=== PATIENT | female | born 1950 | race Caucasian/White ===

== ENCOUNTER 2016-12-15 11:04 | Emergency (ER) | payer MEDICAID ==
[2016-12-15] MEDS ORDERED: Aspirin 81 MG Tab.Chew PO ONE (11:08)
[2016-12-15] MEDS ORDERED: methylPREDNISolone Sodium Succinate 125 MG/2 ML SDV IVPUSH ONE (11:08)
[2016-12-15] MEDS ORDERED: Albuterol/Ipratropium 3.0-0.5 MG/3 ML Neb Soln NEB ONE (11:08)
[2016-12-15] MEDS ORDERED: Sodium Chloride 0.9% 2.5 ML Syringe FLUSH PRN (11:08)
[2016-12-15] MEDS ORDERED: Magnesium Sulfate (4.06 MEQ/ML) 1 GM/2 ML SDV IV ONE (11:08)
[2016-12-15] MEDS ORDERED: Sodium Chloride 0.9% 10 ML Syringe FLUSH PRN (11:08)
[2016-12-15] MEDS ORDERED: Morphine 2 MG/ML Syringe IVPUSH ONE (11:08)
[2016-12-15] MEDS ORDERED: Ondansetron 4 MG/2 ML SDV IVPUSH ONE (11:08)
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
[2016-12-15] MEDS ORDERED: Sodium Chloride 0.9% 1,000 ML IV SCH (11:15)
--- NOTE | 2016-12-15 11:41 | CR ---
EXAMINATION: Portable chest radiograph. HISTORY: Shortness of breath. Comparison: 11/29/2016. FINDINGS: The trachea is midline. The cardiomediastinal silhouette is within normal limits. No pulmonary infil trates, effusions or pneumothorax. There is mild hyperinflation and biapical scarring. Osseous structures appear unremarkable. IMPRESSION: No acute cardiopulmonary process.
[2016-12-15 11:49] LABS: CHLORIDE,CL 97 mmol/L (98-110); SODIUM,NA 128 mmol/L (136-146)
[2016-12-15 17:42] VITALS: BP 127/68
[2016-12-17] MEDS ORDERED: Albuterol/Ipratropium 3.0-0.5 MG/3 ML Neb Soln ONE (21:43)
== END 2016-12-15 13:56 | disposition home or self-care (01) ==
LOC: MW.ED 11:04
DX: J44.1 Chronic obstructive pulmonary disease with (acute) exacerbation (principal); I10 Essential (primary) hypertension; M19.90 Unspecified osteoarthritis, unspecified site; Z87.891 Personal history of nicotine dependence; Z79.2 Long term (current) use of antibiotics; Z79.899 Other long term (current) drug therapy
CPT/HCPCS: 36415; 36600; 71010; 80053; 82803; 83880; 84484; 85025; 85610; 93005; 94664; 96361; 96365; 96375; 99285; A9270; J2270; J2405; J2930; J3475; J7040; J7050; 99284

== ENCOUNTER 2016-12-17 21:38 | Inpatient (IN) | payer MEDICAID, SELFPAY ==
[2016-12-17] MEDS ORDERED: methylPREDNISolone Sodium Succinate 125 MG/2 ML SDV IVPUSH ONE (21:46)
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
[2016-12-17 22:46] LABS: CHLORIDE,CL 94 mmol/L (98-110); SODIUM,NA 124 mmol/L (136-146)
[2016-12-17] MEDS: Sodium Chloride 0.9% 1,000 ML IV SCH (22:48)
[2016-12-18] MEDS: Albuterol/Ipratropium 3.0-0.5 MG/3 ML Neb Soln NEB SCH ×5 (00:14→23:49)
[2016-12-18] MEDS: Sodium Chloride 0.9% 1,000 ML IV SCH ×3 (00:20→17:00)
[2016-12-18 02:28] LABS: CHLORIDE,CL 96 mmol/L (98-110); SODIUM,NA 125 mmol/L (136-146)
[2016-12-18] MEDS: methylPREDNISolone Sodium Succinate 125 MG/2 ML SDV IVPUSH SCH ×4 (05:35→22:55)
[2016-12-18] MEDS ORDERED: Albuterol/Ipratropium 3.0-0.5 MG/3 ML Neb Soln NEB STA (05:37)
[2016-12-18 07:12] LABS: CHLORIDE,CL 98 mmol/L (98-110); SODIUM,NA 128 mmol/L (136-146)
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
[2016-12-18 10:39] LABS: CHLORIDE,CL 98 mmol/L (98-110); SODIUM,NA 127 mmol/L (136-146)
[2016-12-18] MEDS: Tiotropium Inhaler 18 MCG Inhalation Powder Cap Kit of 5 INH SCH (11:06)
[2016-12-18 14:41] LABS: CHLORIDE,CL 97 mmol/L (98-110); SODIUM,NA 128 mmol/L (136-146)
[2016-12-18] MEDS: Enoxaparin 40 MG/0.4 ML Syringe SUBCUT SCH (16:11)
[2016-12-18] MEDS: NIFEdipine 30 MG Tab.ER PO SCH (17:01)
--- NOTE | 2016-12-18 17:34 | CR ---
EXAM DATE: 12/17/16 PATIENT'S AGE: 66 Patient: BENY HOANG Facility: [place], [place] Site . Site : 1950 Study: XRay Chest [id number] 10:08:36 PM Ordering Physician: Doctor Garzon Final Report: INDICATION: SOB TECHNIQUE: Chest 1 view COMPARISON: December 15, 2016. FINDINGS: Cardiovascular and mediastinum: Heart size and vasculature are normal in caliber and appearance. Mediastinum is within normal limits. Lungs and pleural space: Hyperinflation and scarring throughout both lungs. Biapical pleural thickening. No sign of pleural effusion. No pneumothorax. Bones and soft tissues: Stable. IMPRESSION: No acute cardiopulmonary disease. Dictated by Mike Michael MD @ 12/17/2016 10:13:44 PM Dictated by: Mike Michael MD @ 12/17/2016 22:14:07 (Electronic Signature) Report Signed by Proxy. GRADY
[2016-12-18 18:19] LABS: CHLORIDE,CL 97 mmol/L (98-110); SODIUM,NA 129 mmol/L (136-146)
[2016-12-18] MEDS: Fluticasone/Salmeterol 500-50 MCG Inhalation Powder 14/Diskus INH SCH (20:36)
[2016-12-18] MEDS: Montelukast 10 MG Tab PO SCH (20:49)
[2016-12-18] MEDS: Docusate Sodium 100 MG Cap PO PRN (22:08)
[2016-12-18 22:29] LABS: CHLORIDE,CL 97 mmol/L (98-110); SODIUM,NA 128 mmol/L (136-146)
[2016-12-18] MEDS ORDERED: Potassium Chloride 20 MEQ Tab.ER PO ONE (23:29)
[2016-12-19] MEDS: Sodium Chloride 0.9% 1,000 ML IV SCH ×3 (00:42→15:53)
[2016-12-19 01:57] LABS: CHLORIDE,CL 99 mmol/L (98-110); SODIUM,NA 132 mmol/L (136-146)
[2016-12-19] MEDS: methylPREDNISolone Sodium Succinate 125 MG/2 ML SDV IVPUSH SCH ×3 (05:01→20:40)
[2016-12-19 06:50] LABS: CHLORIDE,CL 99 mmol/L (98-110); SODIUM,NA 131 mmol/L (136-146)
[2016-12-19] MEDS: Albuterol/Ipratropium 3.0-0.5 MG/3 ML Neb Soln NEB SCH ×4 (07:32→23:11)
[2016-12-19] MEDS: NIFEdipine 30 MG Tab.ER PO SCH (08:04)
[2016-12-19] MEDS: Docusate Sodium 100 MG Cap PO PRN (08:04)
[2016-12-19] MEDS: Azithromycin 250 MG Tab PO SCH (08:04)
[2016-12-19] MEDS: Tiotropium Inhaler 18 MCG Inhalation Powder Cap Kit of 5 INH SCH (08:05)
[2016-12-19] MEDS: Fluticasone/Salmeterol 500-50 MCG Inhalation Powder 14/Diskus INH SCH ×2 (08:05→20:40)
[2016-12-19] MEDS ORDERED: Potassium Chloride 20 MEQ Tab.ER PO ONE (08:05)
--- NOTE | 2016-12-19 08:22 | PCM.PN ---
- General Info Date of Service: 12/19/16 Admission Dx/Problem (Free Text): COPD exacerbation Subjective Update: Feeling tired today, lightheadedness and dizziness improved, but still present intermittently. No chest pain or palpitations. Dyspnea improving some, on baseline 2 L NC. Functional Status: Reports: pain controlled, tolerating diet, ambulating, urinating - Review of Systems General: Reports: Fatigue. Denies: Fever HEENT: Reports: no symptoms. Denies: headaches, sore throat, visual changes Pulmonary: Reports: shortness of breath (almost at baseline, improving), cough, wheezing Cardiovascular: Reports: Dyspnea on Exertion, Lightheadedness. Denies: Chest Pain, Palpitations Gastrointestinal: Reports: No symptoms. Denies: Abdominal pain, Nausea, Vomiting Genitourinary: Reports: no symptoms. Denies: dysuria, frequency, burning Musculoskeletal: Reports: no symptoms Neurological: Reports: No Symptoms Psychiatric: Reports: no symptoms - Patient Data Vitals - most recent: Last Vital Signs Temp 98.2 F 12/19/16 07:55 Pulse 88 12/19/16 07:55 Resp 22 H 12/19/16 07:55 BP 129/66 12/19/16 08:04 Pulse Ox 96 12/19/16 07:55 Weight - most recent: 50 kg I&O - last 24 hours: Intake & Output 12/18/16 12/19/16 12/19/16 22:59 06:59 14:59 Intake Total 3424 1671 Output Total 2470 2200 Balance 954 -529 Lab Results last 24 hrs: Laboratory Results - last 24 hr 12/18/16 12/18/16 12/18/16 Range/Units 09:57 14:00 17:55 WBC (4.0-11.0) K/uL RBC (4.30-5.90) M/uL Hgb (12.0-16.0) g/dL Hct (36.0-46.0) % MCV (80.0-98.0) fL MCH (27.0-32.0) pg MCHC (31.0-37.0) g/dL RDW Std Deviation (28.0-62.0) fl RDW Coeff of Peter (11.0-15.0) % Plt Count (150-400) K/uL MPV (7.40-12.00) fL Neut % (Auto) (48.0-80.0) % Lymph % (Auto) (16.0-40.0) % [place] % (Auto) (0.0-15.0) % Eos % (Auto) (0.0-7.0) % Baso % (Auto) (0.0-1.5) % Neut # (Auto) (1.4-5.7) K/uL Lymph # (Auto) (0.6-2.4) K/uL [place] # (Auto) (0.0-0.8) K/uL Eos # (Auto) (0.0-0.7) K/uL Baso # (Auto) (0.0-0.1) K/uL Nucleated RBC % /100WBC Nucleated RBCs # K/uL Sodium 127 L 128 L 129 L (136-146) mmol/L Potassium 3.7 3.8 3.8 (3.5-5.1) mmol/L Chloride 98 97 L 97 L (98-110) mmol/L Carbon Dioxide 18 L 20 L 21 (21-31) mmol/L BUN 12 12 13 (6.0-23.0) mg/dL Creatinine 0.7 0.7 0.6 (0.6-1.5) mg/dL Est Cr Clr Drug Dosing 64.09 64.09 74.77 mL/min Estimated GFR (MDRD) > 60.0 > 60.0 > 60.0 ml/min Glucose 228 H 200 H 183 H (60-110) mg/dL Calcium 8.1 L 8.1 L 8.2 L (8.8-10.8) mg/dL 12/18/16 12/19/16 12/19/16 Range/Units 21:53 01:33 06:22 WBC (4.0-11.0) K/uL RBC (4.30-5.90) M/uL Hgb (12.0-16.0) g/dL Hct (36.0-46.0) % MCV (80.0-98.0) fL MCH (27.0-32.0) pg MCHC (31.0-37.0) g/dL RDW Std Deviation (28.0-62.0) fl RDW Coeff of Peter (11.0-15.0) % Plt Count (150-400) K/uL MPV (7.40-12.00) fL Neut % (Auto) (48.0-80.0) % Lymph % (Auto) (16.0-40.0) % [place] % (Auto) (0.0-15.0) % Eos % (Auto) (0.0-7.0) % Baso % (Auto) (0.0-1.5) % Neut # (Auto) (1.4-5.7) K/uL Lymph # (Auto) (0.6-2.4) K/uL [place] # (Auto) (0.0-0.8) K/uL Eos # (Auto) (0.0-0.7) K/uL Baso # (Auto) (0.0-0.1) K/uL Nucleated RBC % /100WBC Nucleated RBCs # K/uL Sodium 128 L 132 L 131 L (136-146) mmol/L Potassium 3.3 L 3.6 3.2 L (3.5-5.1) mmol/L Chloride 97 L 99 99 (98-110) mmol/L Carbon Dioxide 19 L 21 19 L (21-31) mmol/L BUN 14 11 8 (6.0-23.0) mg/dL Creatinine 0.6 0.6 0.6 (0.6-1.5) mg/dL Est Cr Clr Drug Dosing 74.77 74.77 74.77 mL/min Estimated GFR (MDRD) > 60.0 > 60.0 > 60.0 ml/min Glucose 143 H 136 H 205 H (60-110) mg/dL Calcium 8.4 L 8.5 L 8.2 L (8.8-10.8) mg/dL 12/19/16 Range/Units 06:22 WBC 13.55 H (4.0-11.0) K/uL RBC 3.99 L (4.30-5.90) M/uL Hgb 12.2 (12.0-16.0) g/dL Hct 35.1 L (36.0-46.0) % MCV 88.0 (80.0-98.0) fL MCH 30.6 (27.0-32.0) pg MCHC 34.8 (31.0-37.0) g/dL RDW Std Deviation 42.3 (28.0-62.0) fl RDW Coeff of Peter 13 (11.0-15.0) % Plt Count 341 (150-400) K/uL MPV 8.40 (7.40-12.00) fL Neut % (Auto) 94.0 H (48.0-80.0) % Lymph % (Auto) 2.4 L (16.0-40.0) % [place] % (Auto) 3.5 (0.0-15.0) % Eos % (Auto) 0.0 (0.0-7.0) % Baso % (Auto) 0.1 (0.0-1.5) % Neut # (Auto) 12.7 H (1.4-5.7) K/uL Lymph # (Auto) 0.3 L (0.6-2.4) K/uL [place] # (Auto) 0.5 (0.0-0.8) K/uL Eos # (Auto) 0.0 (0.0-0.7) K/uL Baso # (Auto) 0.0 (0.0-0.1) K/uL Nucleated RBC % 0.0 /100WBC Nucleated RBCs # 0 K/uL Sodium (136-146) mmol/L Potassium (3.5-5.1) mmol/L Chloride (98-110) mmol/L Carbon Dioxide (21-31) mmol/L BUN (6.0-23.0) mg/dL Creatinine (0.6-1.5) mg/dL Est Cr Clr Drug Dosing mL/min Estimated GFR (MDRD) ml/min Glucose (60-110) mg/dL Calcium (8.8-10.8) mg/dL Med Orders - Current: Current Medications Albuterol/Ipratropium (Duoneb 3.0-0.5 Mg/3 Ml) 3 ml NEB Q6HRRT [place] Last Admin: 12/19/16 07:32 Dose: 3 ml Azithromycin (Zithromax) 500 mg PO DAILY [place] Last Admin: 12/19/16 08:04 Dose: 500 mg Docusate Sodium (Colace) 100 mg PO BID PRN PRN Reason: Constipation Last Admin: 12/19/16 08:04 Dose: 100 mg Enoxaparin Sodium (Lovenox) 40 mg SUBCUT Q24H [facility] Last Admin: 12/18/16 16:11 Dose: 40 mg Sodium Chloride (Normal Saline) 1,000 mls @ 125 mls/hr IV STAT [facility] Last Admin: 12/19/16 00:42 Dose: 125 mls/hr Sodium Chloride (Normal Saline) 1,000 mls @ 125 mls/hr IV ASDIRECTED [facility] Last Admin: 12/19/16 08:12 Dose: 125 mls/hr Insulin Aspart (Novolog) 0 unit SUBCUT TIDAC [facility] PRN Reason: Protocol Methylprednisolone Sodium Succinate (Solu-Medrol) 125 mg IVPUSH Q6H [facility] Last Admin: 12/19/16 05:01 Dose: 125 mg Montelukast Sodium (Singulair) 10 mg PO BEDTIME [facility] Last Admin: 12/18/16 20:49 Dose: 10 mg Nifedipine (Procardia Xl) 30 mg PO DAILY [facility] Last Admin: 12/19/16 08:04 Dose: 30 mg Fluticasone/Salmeterol (Advair Diskus 500-50) 1 puff INH BID [facility] Last Admin: 12/19/16 08:05 Dose: 1 puff Tiotropium [place] (Spiriva Handihaler) 18 mcg INH DAILY [facility] Last Admin: 12/19/16 08:05 Dose: 1 ampule Discontinued Medications Albuterol/Ipratropium (Duoneb 3.0-0.5 Mg/3 Ml) 3 ml NEB NOW STA Stop: 12/18/16 05:38 Last Admin: 12/17/16 21:55 Dose: 3 ml Methylprednisolone Sodium Succinate (Solu-Medrol) 125 mg IVPUSH ONETIME ONE Stop: 12/17/16 21:47 Last Admin: 12/17/16 22:49 Dose: 125 mg Nifedipine (Procardia Xl) 30 mg PO DAILY [facility] Potassium Chloride (Klor-Con M20) 40 meq PO ONETIME ONE Stop: 12/18/16 23:30 Last Admin: 12/18/16 23:49 Dose: 40 meq Potassium Chloride (Klor-Con M20) 40 meq PO ONETIME ONE Stop: 12/19/16 08:06 - Exam Quality Assessment: supplemental oxygen, DVT prophylaxis General: alert, oriented, cooperative, no acute distress Neck: supple, +2 carotid pulse wo bruit Lungs: Clear to auscultation, Normal respiratory effort Cardiovascular: Regular Rate, Regular Rhythm, No Murmurs Abdomen: bowel sounds present, soft, no tenderness, no distension Extremities: no edema, normal pulses Neurological: no new focal deficit Psy/Mental Status: alert, normal affect, normal mood - Problem List & Annotations (1) COPD (chronic obstructive pulmonary disease) SNOMED Code(s): 23503451 Code(s): J44.9 - CHRONIC OBSTRUCTIVE PULMONARY DISEASE, UNSPECIFIED Status : Chronic Current Visit: Yes Qualifiers: COPD type: chronic bronchitis Chronic bronchitis type: unspecified Qualified Code(s): J42 - Unspecified chronic bronchitis (2) Hyponatremia SNOMED Code(s): 43616319 Code(s): E87.1 - HYPO-OSMOLALITY AND HYPONATREMIA Status: Acute Current Visit: Yes (3) Hypertension SNOMED Code(s): 45499302 Code(s): I10 - ESSENTIAL (PRIMARY) HYPERTENSION Status: Chronic Priority : Medium Current Visit: No Qualifiers: Hypertension type: essential hypertension Qualified Code(s): I10 - Essential (primary) hypertension (4) Oxygen dependent SNOMED Code(s): 015605842225 Code(s): Z99.81 - DEPENDENCE ON SUPPLEMENTAL OXYGEN Status: Chronic Current Visit: No - Problem List Review Problem List Initiated/Reviewed/Updated: Yes - My Orders Last 24 Hours: My Active Orders 12/18/16 11:00 Tiotropium [Spiriva HandiHaler] 18 mcg INH DAILY 12/18/16 13:08 Resuscitation Status Routine 12/18/16 15:00 Enoxaparin [Lovenox] 40 mg SUBCUT Q24H 12/18/16 16:26 NIFEdipine [Procardia XL] 30 mg PO DAILY 12/18/16 21:00 Fluticasone/Salmeterol [Advair Diskus 500-50] 1 puff INH BID Montelukast [Singulair] 10 mg PO BEDTIME 12/19/16 08:06 Blood Glucose Check, Bedside [RC] TIDMEALS 12/19/16 08:07 Insulin Aspart [NovoLOG] See Protocol SUBCUT TIDAC 12/19/16 09:00 Azithromycin [Zithromax] 500 mg PO DAILY 12/19/16 10:00 BMP [BASIC METABOLIC PANEL,BMP] [CHEM] Q4H 12/20/16 06:00 CBC WITH AUTO DIFF [HEME] DAILY 12/21/16 06:00 CBC WITH AUTO DIFF [HEME] DAILY - Plan Plan:: This 66 year female admitted with COPD exacerbation and hyponatremia 1. COPD excerbation: Improving, will decrease Solumderol 125 IV q6h to Q8hr. Continue with Duonebs, Oxygen and home inhalers, Advair and Spiriva. 2. Hyponatremia: Improving, 131 this morning. Lightheadedness and dizziness improving. Discontinued SSRI follow up with PCP to discuss further options for anti-depressants. Continue NS 125 3. HTN: Stable. Continue Nifedipine 4. Hyperglycemia: Likely related to steroid adminstration, will place on BS checks and SSI Novolog TID with meals. VTE prophylaxis: Lovenox Dispo: 2-3 days
[2016-12-19] MEDS: Insulin Aspart 100 Units/ML 3 ML Pen SUBCUT SCH ×3 (08:26→17:30)
[2016-12-19] MEDS ORDERED: NIFEdipine 30 MG Tab.ER PO SCH (09:00)
[2016-12-19 10:44] LABS: CHLORIDE,CL 101 mmol/L (98-110); SODIUM,NA 132 mmol/L (136-146)
[2016-12-19] MEDS: Enoxaparin 40 MG/0.4 ML Syringe SUBCUT SCH (14:44)
[2016-12-19] MEDS: Montelukast 10 MG Tab PO SCH (20:39)
[2016-12-20] MEDS: Sodium Chloride 0.9% 1,000 ML IV SCH (02:09)
[2016-12-20] MEDS: Albuterol/Ipratropium 3.0-0.5 MG/3 ML Neb Soln NEB SCH ×2 (05:09→13:31)
[2016-12-20] MEDS: methylPREDNISolone Sodium Succinate 125 MG/2 ML SDV IVPUSH SCH ×2 (05:09→13:49)
[2016-12-20 05:28] LABS: CHLORIDE,CL 99 mmol/L (98-110); SODIUM,NA 133 mmol/L (136-146)
[2016-12-20] MEDS: Insulin Aspart 100 Units/ML 3 ML Pen SUBCUT SCH ×2 (06:33→11:50)
[2016-12-20] MEDS: Azithromycin 250 MG Tab PO SCH (09:25)
[2016-12-20] MEDS: NIFEdipine 30 MG Tab.ER PO SCH (09:25)
[2016-12-20] MEDS: Tiotropium Inhaler 18 MCG Inhalation Powder Cap Kit of 5 INH SCH (09:25)
--- NOTE | 2016-12-20 09:25 | PCM.DCSUM1 ---
Discharge Summary - Hospital Course Brief History: This 66 year old female with pmh of steroid dependent COPD oxygen dependent and HTN presented to the ED with worsening SOB. She was seen in the ED the night prior and decline admission. She then went home and continued to have worsening dypsnea lightheadedness and dizziness. She reports not eating or drinking as well as usual. No fevers. Has dry cough, but unable to produce sputum, remains on 2 L NC, which is baseline. No headaches, does state some blurred vision intermittently. No chest pain or palpitations. No abdominal pain, but does complain of some constipation. She reports recently seeing Pulmonology LENDING MANAGER, Olga Glover, where Spiriva was added as well as steroid taper and Azithromycin. On December 13 she saw her PCP, Dr. León who started Sertraline at that time for depression. In the ED WBC 11,630, NA 124, UA negative and CXR revealed no infiltrate, does show hyperinflation. She was admitted for COPD exacerbation and hyponatremia. - Discharge Data Discharge Date: 12/20/16 Discharge Disposition: Home, Self-Care 01 Condition: Good - Discharge Diagnosis/Problem(s) (1) COPD (chronic obstructive pulmonary disease) SNOMED Code(s): 85824602 ICD Code: J44.9 - CHRONIC OBSTRUCTIVE PULMONARY DISEASE, UNSPECIFIED Status : Chronic Current Visit: Yes Qualifiers: COPD type: chronic bronchitis Chronic bronchitis type: unspecified Qualified Code(s): J42 - Unspecified chronic bronchitis (2) Hyponatremia SNOMED Code(s): 08606154 ICD Code: E87.1 - HYPO-OSMOLALITY AND HYPONATREMIA Status: Acute Current Visit: Yes (3) Hypertension SNOMED Code(s): 04578607 ICD Code: I10 - ESSENTIAL (PRIMARY) HYPERTENSION Status: Chronic Priority : Medium Current Visit: No Qualifiers: Hypertension type: essential hypertension Qualified Code(s): I10 - Essential (primary) hypertension (4) Oxygen dependent SNOMED Code(s): 230850012723 ICD Code: Z99.81 - DEPENDENCE ON SUPPLEMENTAL OXYGEN Status: Chronic Current Visit: No - Patient Instructions Diet: Regular Diet as Tolerated Activity: As Tolerated Showering/Bathing: October Shower Notify Provider of: Fever, Increased Pain, Swelling and Redness, Drainage, Nausea and/or Vomiting - Discharge Plan Prescriptions/Med Rec: Prednisone [IMW: Prednisone] 10 - 40 mg PO DAILY #50 tab Home Medications: Home Meds Albuterol [Proventil Neb Soln] 2.5 mg NEB QID PRN 03/13/15 [History] Albuterol Sulfate [Proair Hfa] 2 inh IH QID PRN 03/15/15 [History] LORazepam 0.5 mg PO BID PRN 03/15/15 [History] NIFEdipine [Nifedipine ER] 30 mg PO DAILY 03/15/15 [History] Fluticasone/Salmeterol [Advair Diskus 500-50] 1 puff INH BID 12/18/16 [History] Montelukast Sodium 10 mg PO BEDTIME 12/18/16 [History] Tiotropium [Spiriva HandiHaler] 18 mcg IH DAILY 12/18/16 [History] Azithromycin 500 mg PO DAILY #0 12/20/16 [Rx] Prednisone [IMW: Prednisone] 10 - 40 mg PO DAILY #50 tab 12/20/16 [Rx] predniSONE 10 mg PO DAILY #0 12/20/16 [Rx] Patient Handouts: Chronic Obstructive Pulmonary Disease Exacerbation, Easy-to- Read, Hyponatremia, [id number], Prednisone tablets Referrals: Pollo León MD [Physician] - 12/27/16 8:30 am - Discharge Summary/Plan Comment DC Time >30 min.: No Discharge Summary/Plan Comment: Discharge Diagnoses: COPD exacerbation Hyponatremia secondary to SSRI initiation BENJAMIN Meza was admitted and treated with Solumedrol and nebulizers. Azithromycin was continued, which had been started a few days prior per Pulmonology in [place]. She slowly improved and is back to baseline oxygen needs, 2 L NC continuously. She is still dyspneic but is requesting discharge home today. I will continue azithromycin as previously ordered. Prednisone taper on discharge. Hyponatremia was noted on admission, she was recently started on Zoloft as outpatient. She had lightheadedness and dizziness on admission. This was held and she was treated with IV fluids. Na 133 today. She was instructed to discontinue Zoloft and visit with Dr. León regarding further treatment of depression at follow up visit. She is to return to ED or clinic if concerns should arise. - General Info Date of Service: 12/20/16 Admission Dx/Problem (Free Text: COPD exacerbation Subjective Update: Asking to go home today. She is feeling better, still SOB but reports it is much improved from admission. Denies any chest pain or palpitations and lightheadedness and dizziness has improved as well. Functional Status: Reports: pain controlled, tolerating diet, ambulating, urinating - Review of Systems General: Reports: No Symptoms HEENT: Reports: no symptoms. Denies: headaches Pulmonary: Reports: shortness of breath (improving), cough. Denies: hemoptysis Cardiovascular: Reports: No Symptoms. Denies: Chest Pain, Dyspnea on Exertion, Edema, Lightheadedness Gastrointestinal: Reports: No symptoms. Denies: Abdominal pain, Nausea, Vomiting Genitourinary: Reports: no symptoms Musculoskeletal: Reports: no symptoms Skin: Reports: no symptoms Neurological: Reports: No Symptoms Psychiatric: Reports: no symptoms - Patient Data Vitals - Most Recent: Last Vital Signs Temp 96.8 F 12/20/16 08:00 Pulse 83 12/20/16 08:00 Resp 20 12/20/16 08:00 BP 156/93 H 12/20/16 09:25 Pulse Ox 95 12/20/16 08:00 Weight - Most Recent: 50 kg I&O - Last 24 hours: Intake & Output 12/19/16 12/20/16 12/20/16 22:59 06:59 14:59 Intake Total 2529 1400 Output Total 1700 2550 Balance 829 -1150 Lab Results - Last 24 hrs: Laboratory Results - last 24 hr 12/19/16 12/19/16 12/19/16 Range/Units 10:16 11:48 16:52 WBC (4.0-11.0) K/uL RBC (4.30-5.90) M/uL Hgb (12.0-16.0) g/dL Hct (36.0-46.0) % MCV (80.0-98.0) fL MCH (27.0-32.0) pg MCHC (31.0-37.0) g/dL RDW Std Deviation (28.0-62.0) fl RDW Coeff of Peter (11.0-15.0) % Plt Count (150-400) K/uL MPV (7.40-12.00) fL Neut % (Auto) (48.0-80.0) % Lymph % (Auto) (16.0-40.0) % [place] % (Auto) (0.0-15.0) % Eos % (Auto) (0.0-7.0) % Baso % (Auto) (0.0-1.5) % Neut # (Auto) (1.4-5.7) K/uL Lymph # (Auto) (0.6-2.4) K/uL [place] # (Auto) (0.0-0.8) K/uL Eos # (Auto) (0.0-0.7) K/uL Baso # (Auto) (0.0-0.1) K/uL Nucleated RBC % /100WBC Nucleated RBCs # K/uL Sodium 132 L (136-146) mmol/L Potassium 3.9 (3.5-5.1) mmol/L Chloride 101 (98-110) mmol/L Carbon Dioxide 19 L (21-31) mmol/L BUN 9 (6.0-23.0) mg/dL Creatinine 0.7 (0.6-1.5) mg/dL Est Cr Clr Drug Dosing 64.09 mL/min Estimated GFR (MDRD) > 60.0 ml/min Glucose 203 H (60-110) mg/dL POC Glucose 111 H 107 (60-110) mg/dL Calcium 8.4 L (8.8-10.8) mg/dL 12/20/16 12/20/16 12/20/16 Range/Units 04:57 04:57 06:18 WBC 10.32 (4.0-11.0) K/uL RBC 3.95 L (4.30-5.90) M/uL Hgb 12.0 (12.0-16.0) g/dL Hct 35.1 L (36.0-46.0) % MCV 88.9 (80.0-98.0) fL MCH 30.4 (27.0-32.0) pg MCHC 34.2 (31.0-37.0) g/dL RDW Std Deviation 43.9 (28.0-62.0) fl RDW Coeff of Peter 13 (11.0-15.0) % Plt Count 349 (150-400) K/uL MPV 8.40 (7.40-12.00) fL Neut % (Auto) 92.4 H (48.0-80.0) % Lymph % (Auto) 6.1 L (16.0-40.0) % [place] % (Auto) 1.5 (0.0-15.0) % Eos % (Auto) 0.0 (0.0-7.0) % Baso % (Auto) 0.0 (0.0-1.5) % Neut # (Auto) 9.5 H (1.4-5.7) K/uL Lymph # (Auto) 0.6 (0.6-2.4) K/uL [place] # (Auto) 0.2 (0.0-0.8) K/uL Eos # (Auto) 0.0 (0.0-0.7) K/uL Baso # (Auto) 0.0 (0.0-0.1) K/uL Nucleated RBC % 0.0 /100WBC Nucleated RBCs # 0 K/uL Sodium 133 L (136-146) mmol/L Potassium 3.5 (3.5-5.1) mmol/L Chloride 99 (98-110) mmol/L Carbon Dioxide 23 (21-31) mmol/L BUN 8 (6.0-23.0) mg/dL Creatinine 0.6 (0.6-1.5) mg/dL Est Cr Clr Drug Dosing 74.77 mL/min Estimated GFR (MDRD) > 60.0 ml/min Glucose 147 H (60-110) mg/dL POC Glucose 135 H (60-110) mg/dL Calcium 8.5 L (8.8-10.8) mg/dL Med Orders - Current: Current Medications Albuterol/Ipratropium (Duoneb 3.0-0.5 Mg/3 Ml) 3 ml NEB Q6HRRT [facility] Last Admin: 12/20/16 05:09 Dose: 3 ml Azithromycin (Zithromax) 500 mg PO DAILY [facility] Last Admin: 12/20/16 09:25 Dose: 500 mg Docusate Sodium (Colace) 100 mg PO BID PRN PRN Reason: Constipation Last Admin: 12/19/16 08:04 Dose: 100 mg Enoxaparin Sodium (Lovenox) 40 mg SUBCUT Q24H [facility] Last Admin: 12/19/16 14:44 Dose: 40 mg Sodium Chloride (Normal Saline) 1,000 mls @ 125 mls/hr IV ASDIRECTED [facility] Last Admin: 12/20/16 02:09 Dose: 125 mls/hr Insulin Aspart (Novolog) 0 unit SUBCUT TIDAC [place] PRN Reason: Protocol Last Admin: 12/20/16 06:33 Dose: Not Given Methylprednisolone Sodium Succinate (Solu-Medrol) 125 mg IVPUSH Q8H [facility] Last Admin: 12/20/16 05:09 Dose: 125 mg Montelukast Sodium (Singulair) 10 mg PO BEDTIME [facility] Last Admin: 12/19/16 20:39 Dose: 10 mg Nifedipine (Procardia Xl) 30 mg PO DAILY [facility] Last Admin: 12/20/16 09:25 Dose: 30 mg Fluticasone/Salmeterol (Advair Diskus 500-50) 1 puff INH BID [facility] Last Admin: 12/19/16 20:40 Dose: 1 puff Tiotropium [place] (Spiriva Handihaler) 18 mcg INH DAILY [facility] Last Admin: 12/19/16 08:05 Dose: 1 ampule Discontinued Medications Albuterol/Ipratropium (Duoneb 3.0-0.5 Mg/3 Ml) 3 ml NEB NOW STA Stop: 12/18/16 05:38 Last Admin: 12/17/16 21:55 Dose: 3 ml Sodium Chloride (Normal Saline) 1,000 mls @ 125 mls/hr IV STAT [facility] Last Admin: 12/19/16 00:42 Dose: 125 mls/hr Methylprednisolone Sodium Succinate (Solu-Medrol) 125 mg IVPUSH ONETIME ONE Stop: 12/17/16 21:47 Last Admin: 12/17/16 22:49 Dose: 125 mg Methylprednisolone Sodium Succinate (Solu-Medrol) 125 mg IVPUSH Q6H [facility] Last Admin: 12/19/16 05:01 Dose: 125 mg Nifedipine (Procardia Xl) 30 mg PO DAILY [facility] Potassium Chloride (Klor-Con M20) 40 meq PO ONETIME ONE Stop: 12/18/16 23:30 Last Admin: 12/18/16 23:49 Dose: 40 meq Potassium Chloride (Klor-Con M20) 40 meq PO ONETIME ONE Stop: 12/19/16 08:06 Last Admin: 12/19/16 08:23 Dose: 40 meq - Exam General: Reports: alert, oriented, cooperative Lungs: Reports: Decreased breath sounds, Wheezing. Denies: Normal respiratory effort (dyspneic with speech) Cardiovascular: Reports: Regular Rate, Regular Rhythm Abdomen: Reports: bowel sounds present, soft, no tenderness, no distension Extremities: Reports: no edema, normal pulses Neurological: Reports: no new focal deficit Psy/Mental Status: Reports: alert, normal affect, normal mood *Q Meaningful Use (DIS) - VTE *Q VTE Criteria *Q: - Stroke *Q Stroke Criteria *Q: - AMI *Q AMI Criteria *Q:
[2016-12-20] MEDS: Fluticasone/Salmeterol 500-50 MCG Inhalation Powder 14/Diskus INH SCH (09:26)
[2016-12-20 11:35] VITALS: BP 121/73
== END 2016-12-20 16:00 | disposition home or self-care (01) | DRG 191 ==
LOC: MW.ED 21:38 → MW.MS 23:22
PROVIDERS: ADMIT Internal Medicine; ATTEND Internal Medicine
DX: J44.9 Chronic obstructive pulmonary disease, unspecified (principal); J44.0 Chronic obstructive pulmonary disease with (acute) lower respiratory infection; E87.1 Hypo-osmolality and hyponatremia; J20.9 Acute bronchitis, unspecified; J44.1 Chronic obstructive pulmonary disease with (acute) exacerbation; I10 Essential (primary) hypertension; F32.9 Major depressive disorder, single episode, unspecified; Z79.52 Long term (current) use of systemic steroids; Z99.81 Dependence on supplemental oxygen; Z79.899 Other long term (current) drug therapy; Z87.891 Personal history of nicotine dependence; R73.9 Hyperglycemia, unspecified
CPT/HCPCS: 36415; 71010; 80053; 84484; 85025; 96361; 96374; 99285; J2930; J7040; 80048; 81001; 82962; 93005; 94640; 94664; 99283; A9270-GY; J1650; J1815-GY

== ENCOUNTER 2018-09-17 16:13 | Emergency (ER) | payer MEDICARE, MEDICAID ==
[2018-09-17] MEDS ORDERED: methylPREDNISolone Sodium Succinate 125 MG/2 ML SDV IVPUSH ONE (16:16)
[2018-09-17] MEDS ORDERED: Sodium Chloride 0.9% 2.5 ML Syringe FLUSH PRN (16:16)
[2018-09-17] MEDS ORDERED: Albuterol/Ipratropium 3.0-0.5 MG/3 ML Neb Soln NEB ONE ×2 (16:16→17:28)
[2018-09-17] MEDS ORDERED: Sodium Chloride 0.9% 10 ML Syringe FLUSH PRN (16:16)
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
[2018-09-17] MEDS ORDERED: methylPREDNISolone Sodium Succinate 125 MG/2 ML SDV ONE (16:32)
[2018-09-17] MEDS ORDERED: LORazepam 2 MG/ML SDV IVPUSH ONE (16:33)
[2018-09-17 17:01] LABS: CHLORIDE,CL 96 mmol/L (98-107); SODIUM,NA 133 mmol/L (136-145)
--- NOTE | 2018-09-17 17:44 | CR ---
INDICATION: Shortness of breath TECHNIQUE: Chest 1 views COMPARISON: 06/19/2018 FINDINGS: Cardiovascular and mediastinum: Heart size and vasculature are normal in caliber and appearance. Lungs and pleural spaces: Lungs are hyperinflated but otherwise clear. No sign of infiltrate or mass. No sign of pleural effusion. No pneumothorax. Bones and soft tissues: No significant findings. IMPRESSION: Unremarkable chest. No finding to explain shortness of breath. Dictated by Rosalio Lujan MD @ Sep 17 2018 5:42PM Signed by Dr. Rosalio Lujan @ Sep 17 2018 5:43PM
[2018-09-17 18:01] VITALS: BP 156/88
== END 2018-09-17 18:10 | disposition home or self-care (01) ==
LOC: MW.ED 16:13
DX: J44.1 Chronic obstructive pulmonary disease with (acute) exacerbation (principal); I10 Essential (primary) hypertension; F41.9 Anxiety disorder, unspecified; F32.9 Major depressive disorder, single episode, unspecified; Z79.899 Other long term (current) drug therapy
CPT/HCPCS: 36415; 71045; 80053; 84484; 85025; 93005; 94640; 96374; 96375; 99285; J2060; J2930; J7620-GY

== ENCOUNTER 2018-10-04 16:15 | Emergency (ER) | payer MEDICARE, MEDICAID ==
[2018-10-04] MEDS ORDERED: methylPREDNISolone Sodium Succinate 125 MG/2 ML SDV IVPUSH ONE (16:19)
[2018-10-04] MEDS ORDERED: Albuterol/Ipratropium 3.0-0.5 MG/3 ML Neb Soln NEB ONE (16:19)
[2018-10-04] MEDS ORDERED: Sodium Chloride 0.9% 1,000 ML IV ONE (16:20)
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
[2018-10-04 16:25] VITALS: BP 185/104
--- NOTE | 2018-10-04 17:27 | CR ---
INDICATION: Shortness of breath. History of COPD and pneumonia. COMPARISON: 09/17/2018 chest radiograph. FINDINGS/IMPRESSION: Unchanged pulmonary hyperexpansion suggesting chronic obstructive pulmonary disease. No acute pulmonary infiltrates or other acute intrathoracic findings. No pleural effusions. Normal heart size. No acute osseous abnormalities. Dictated by Mina Miller MD @ 10/04/2018 5:26:27 PM Dictated by: Mina Miller MD @ 10/04/2018 17:26:48 (Electronically Signed)
[2018-10-04 17:53] LABS: CHLORIDE,CL 95 mmol/L (98-107); SODIUM,NA 131 mmol/L (136-145)
== END 2018-10-04 18:43 | disposition home or self-care (01) ==
LOC: MW.ED 16:15
DX: J44.1 Chronic obstructive pulmonary disease with (acute) exacerbation (principal); I10 Essential (primary) hypertension; F41.9 Anxiety disorder, unspecified; F32.9 Major depressive disorder, single episode, unspecified; Z79.899 Other long term (current) drug therapy
CPT/HCPCS: 71045; 80053; 81003; 84484; 85025; 93005; 94640; 96361; 96374; 99285; J2930; J7040; 99283; J7620-GY

== ENCOUNTER 2018-10-23 16:28 | Emergency (ER) | payer MEDICARE, MEDICAID ==
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
[2018-10-23] MEDS: Albuterol/Ipratropium 3.0-0.5 MG/3 ML Neb Soln NEB ONE (17:07)
[2018-10-23] MEDS ORDERED: Sodium Chloride 0.9% 2.5 ML Syringe FLUSH PRN (17:16)
[2018-10-23] MEDS ORDERED: Sodium Chloride 0.9% 10 ML Syringe FLUSH PRN (17:16)
[2018-10-23] MEDS: methylPREDNISolone Sodium Succinate 125 MG/2 ML SDV IVPUSH ONE (17:42)
[2018-10-23 18:05] LABS: CHLORIDE,CL 94 mmol/L (98-107); SODIUM,NA 130 mmol/L (136-145)
--- NOTE | 2018-10-23 18:22 | CR ---
Indication: Dyspnea Technique: Chest 1 view Comparison: October 04, 2018 Findings: Cardiovascular and mediastinum: Heart size and vasculature are normal in caliber and appearance. Mediastinum is within normal limits. Lungs and pleural space: Emphysema. No sign of infiltrate or mass. No sign of pleural effusion. No pneumothorax. Bones and soft tissues: No significant findings. Impression: : Emphysema. No acute abnormality. Dictated by Jennifer Small MD @ Oct 23 2018 6:18PM Signed by Dr. Jennifer Small @ Oct 23 2018 6:19PM
[2018-10-23 18:48] VITALS: BP 148/85
== END 2018-10-23 18:48 | disposition home or self-care (01) ==
LOC: MW.ED 16:28
DX: J44.1 Chronic obstructive pulmonary disease with (acute) exacerbation (principal); F41.9 Anxiety disorder, unspecified; F32.9 Major depressive disorder, single episode, unspecified; Z79.899 Other long term (current) drug therapy
CPT/HCPCS: 36415; 71045; 80053; 85025; 93005; 94640; 96374; 99285; J2930; 99283; J7620-GY

== ENCOUNTER 2019-02-17 20:41 | Inpatient (IN) | payer MEDICARE, MEDICAID ==
[2019-02-17] MEDS ORDERED: HYDROmorphone 2 MG/ML Syringe IVPUSH ONE (20:56)
[2019-02-17] MEDS ORDERED: HYDROmorphone 2 MG/ML Syringe ONE (20:59)
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
--- NOTE | 2019-02-17 21:48 | CR ---
Indication: Fall. Technique: Two views of the right femur were obtained. Comparison: None Findings: This is a limited study at. The patient was unable to roll to her back. What appears to represent a comminuted intra-articular proximal right femoral fracture is identified. The lesser trochanter is a free fragment. No other fractures are identified. The femoral head is seated within the acetabulum. Impression: Comminuted proximal right femoral fracture. Dictated by Audrey Hoffman MD @ Feb 17 2019 9:44PM Signed by Dr. Audrey Hoffman @ Feb 17 2019 9:46PM
[2019-02-17 21:59] LABS: BLOOD UREA NITROGEN,BUN 16 mg/dL (7.0-18.0); CARBON DIOXIDE,CO2 19.8 mmol/L (21.0-32.0); CHLORIDE,CL 97 mmol/L (98-107); GLUCOSE RANDOM 143 mg/dL (74-106); POTASSIUM,K 3.9 mmol/L (3.5-5.1); SODIUM,NA 133 mmol/L (136-145)
--- NOTE | 2019-02-17 22:07 | CT ---
INDICATION: Fall TECHNIQUE: CT cervical spine without contrast. COMPARISON: None available FINDINGS: There is straightening of the cervical lordosis. The craniocervical and atlantoaxial alignments are near anatomical. There is superior endplate irregularity and mild height loss involving the C5 vertebral body which could be chronic. There is, otherwise, no evidence of an acute cervical spine fracture. There is no significant precervical soft tissue swelling. Degenerative changes are seen at several levels. There are emphysematous changes and pleural scarring at the lung apices. IMPRESSION: Superior endplate irregularity and mild height loss of the C5 vertebral body could be chronic. Otherwise no evidence of an acute cervical spine fracture. If clinically indicated, further evaluation with MRI may be of value. Dictated by Andres Lee MD @ 02/17/2019 10:06:10 PM Please note that all CT scans at this facility use dose modulation, iterative reconstruction, and/or weight-based dosing when appropriate to reduce radiation dose to as low as reasonably achievable. Dictated by: Andres Lee MD @ 02/17/2019 22:06:17 (Electronically Signed)
[2019-02-17] MEDS ORDERED: Sodium Chloride 0.9% 1,000 ML IV ONE (22:08)
[2019-02-17] MEDS ORDERED: Iopamidol 755 Mg/ML 100 ML Bottle IVPUSH ONE (22:11)
--- NOTE | 2019-02-17 22:25 | CT ---
INDICATION: Fall TECHNIQUE: CT head without contrast. COMPARISON: None available FINDINGS: The ventricles and sulci are within normal limits for the patient`s age. There is no mass effect or midline shift. White matter hypodensities are suggestive of chronic small vessel ischemic changes. 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 There is no loss of gaspar-white differentiation. There is no evidence of an acute intracranial hemorrhage. No acute calvarial fracture is seen. There is mild maxillary sinus mucosal thickening with a small mucosal retention cyst or polyp in the right maxillary sinus. The mastoid air cells are clear. Post cataract surgery changes are seen. IMPRESSION: No evidence of an acute intracranial hemorrhage, mass effect or loss of gaspar-white differentiation. Chronic ischemic changes. Dictated by Andres Lee MD @ 02/17/2019 10:23:39 PM Please note that all CT scans at this facility use dose modulation, iterative reconstruction, and/or weight-based dosing when appropriate to reduce radiation dose to as low as reasonably achievable. Dictated by: Andres Lee MD @ 02/17/2019 22:23:44 (Electronically Signed)
--- NOTE | 2019-02-17 22:31 | CR ---
INDICATION: Fall. Found down. TECHNIQUE: Chest 1 views COMPARISON: October 23, 2018. FINDINGS: Cardiovascular and mediastinum: Heart size and vasculature are normal in caliber and appearance. Lungs and pleural spaces: Lungs are hyperinflated but otherwise clear. No sign of infiltrate or mass. No sign of pleural effusion. No pneumothorax. Bones and soft tissues: No significant findings. IMPRESSION: No acute findings and no significant changes from the prior exam. Dictated by Rosalio Lujan MD @ Feb 17 2019 10:29PM Signed by Dr. Rosalio Lujan @ Feb 17 2019 10:31PM
--- NOTE | 2019-02-17 22:33 | CR ---
Indication: Fall. Fall down. Technique: Left shoulder 2 views. Comparison: None. Findings: Bones: Alignment is normal. No fractures or bone lesions. Joint spaces: Mild arthritic changes in the AC joint. Otherwise unremarkable. Soft tissues: Unremarkable. Impression: No sign of acute injury or other significant finding in the left shoulder. Dictated by Rosalio Lujan MD @ Feb 17 2019 10:31PM Signed by Dr. Rosalio Lujan @ Feb 17 2019 10:32PM
--- NOTE | 2019-02-17 22:38 | CT ---
Indication: Fall Technique: A pelvic CT with intravenous contrast. Comparison: None available Findings: There is a comminuted right femoral intertrochanteric and proximal metadiaphyseal fracture with displacement and angulation. There is adjacent soft tissue induration, edema and small blood products. Within the pelvis, there is fluid within the moderately distended vagina. There is prominence of the opacified parametrial and gonadal veins, left greater than right. The visualized portions of the gastrointestinal tract are within normal limits. There is apparent tiny amount of free fluid in the posterior inferior right pelvis. There is no free air. A ptotic right kidney seen. Impression: A comminuted proximal right femoral fracture. Apparent tiny posteroinferior pelvic fluid, otherwise, no CT evidence of a gross visceral injury within the pelvis. A moderately distended, fluid-filled vagina. Recommend further gynecological evaluation. Prominence of the parametrial and gonadal veins. Correlate for pelvic congestion syndrome. Dictated by Andres Lee MD @ 02/17/2019 10:35:54 PM Please note that all CT scans at this facility use dose modulation, iterative reconstruction, and/or weight-based dosing when appropriate to reduce radiation dose to as low as reasonably achievable. Dictated by: Andres Lee MD @ 02/17/2019 22:36:07 (Electronically Signed)
[2019-02-18] MEDS: Sodium Chloride 0.9% 1,000 ML IV SCH ×4 (00:41→21:58)
[2019-02-18] MEDS: Morphine 2 MG/ML Syringe IVPUSH PRN ×4 (00:45→08:45)
[2019-02-18 07:04] LABS: BLOOD UREA NITROGEN,BUN 12 mg/dL (7.0-18.0); CARBON DIOXIDE,CO2 22.1 mmol/L (21.0-32.0); CHLORIDE,CL 104 mmol/L (98-107); GLUCOSE RANDOM 107 mg/dL (74-106); POTASSIUM,K 3.9 mmol/L (3.5-5.1); SODIUM,NA 138 mmol/L (136-145)
[2019-02-18] MEDS ORDERED: HYDROmorphone 1 MG/ML Syringe IVPUSH PRN (08:58)
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
[2019-02-18] MEDS ORDERED: Albuterol/Ipratropium 3.0-0.5 MG/3 ML Neb Soln NEB SCH (12:00)
[2019-02-18] MEDS ORDERED: LORazepam 2 MG/ML SDV IVPUSH ONE (12:07)
[2019-02-18] MEDS: Albuterol/Ipratropium 3.0-0.5 MG/3 ML Neb Soln NEB SCH ×3 (14:21→21:26)
[2019-02-18] MEDS ORDERED: HYDROmorphone 1 MG/ML Syringe IVPUSH ONE (14:26)
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
[2019-02-18] MEDS: Acetaminophen 325 MG Tab PO PRN (17:41)
[2019-02-18] MEDS: HYDROmorphone 1 MG/ML Syringe IVPUSH PRN (19:16)
[2019-02-18] MEDS: amLODIPine 5 MG Tab PO SCH (21:59)
[2019-02-19] MEDS: Albuterol/Ipratropium 3.0-0.5 MG/3 ML Neb Soln NEB SCH ×6 (03:54→21:30)
[2019-02-19] MEDS: HYDROmorphone 1 MG/ML Syringe IVPUSH PRN ×4 (04:00→22:02)
[2019-02-19] MEDS: Sodium Chloride 0.9% 1,000 ML IV SCH ×3 (05:11→23:40)
[2019-02-19] MEDS ORDERED: HYDROmorphone 1 MG/ML Syringe IVPUSH ONE (06:37)
[2019-02-19 07:23] LABS: BLOOD UREA NITROGEN,BUN 5 mg/dL (7.0-18.0); CARBON DIOXIDE,CO2 22.9 mmol/L (21.0-32.0); CHLORIDE,CL 103 mmol/L (98-107); GLUCOSE RANDOM 108 mg/dL (74-106); POTASSIUM,K 3.4 mmol/L (3.5-5.1); SODIUM,NA 135 mmol/L (136-145)
--- NOTE | 2019-02-19 10:17 | PCM.PN ---
<Tawana Mendez - Last Filed: 02/19/19 10:11> - General Info Date of Service: 02/19/19 Subjective Update: patient seen at bedside: states pain gets worse with movement especially at the required 2 hour turning; otherwise was on phone speaking to family members. - Patient Data Vitals - Most Recent: Last Vital Signs Temp 98.4 F 02/19/19 07:30 Pulse 110 H 02/19/19 07:30 Resp 20 02/19/19 07:30 BP 130/70 02/19/19 07:30 Pulse Ox 91 L 02/19/19 07:30 Weight - Most Recent: 68.039 kg I&O - Last 24 Hours: Intake & Output 02/18/19 02/19/19 02/19/19 22:59 06:59 14:59 Intake Total 350 3608 Output Total 700 700 Balance -350 2908 Lab Results Last 24 Hours: Laboratory Results - last 24 hr 02/19/19 02/19/19 02/19/19 Range/Units 05:56 05:56 07:07 WBC 12.80 H (4.0-11.0) K/uL RBC 3.08 L (4.30-5.90) M/uL Hgb 8.9 L (12.0-16.0) g/dL Hct 27.3 L (36.0-46.0) % MCV 88.6 (80.0-98.0) fL MCH 28.9 (27.0-32.0) pg MCHC 32.6 (31.0-37.0) g/dL RDW Std Deviation 45.0 (28.0-62.0) fl RDW Coeff of Peter 14 (11.0-15.0) % Plt Count 383 (150-400) K/uL MPV 8.80 (7.40-12.00) fL Neut % (Auto) 80.5 H (48.0-80.0) % Lymph % (Auto) 6.6 L (16.0-40.0) % [place] % (Auto) 11.5 (0.0-15.0) % Eos % (Auto) 1.3 (0.0-7.0) % Baso % (Auto) 0.1 (0.0-1.5) % Neut # (Auto) 10.3 H (1.4-5.7) K/uL Lymph # (Auto) 0.9 (0.6-2.4) K/uL [place] # (Auto) 1.5 H (0.0-0.8) K/uL Eos # (Auto) 0.2 (0.0-0.7) K/uL Baso # (Auto) 0.0 (0.0-0.1) K/uL Nucleated RBC % 0.0 /100WBC Nucleated RBCs # 0 K/uL Sodium 135 L (136-145) mmol/L Potassium 3.4 L (3.5-5.1) mmol/L Chloride 103 (98-107) mmol/L Carbon Dioxide 22.9 (21.0-32.0) mmol/L BUN 5 L (7.0-18.0) mg/dL Creatinine 0.5 L (0.6-1.0) mg/dL Est Cr Clr Drug Dosing 103.61 mL/min Estimated GFR (MDRD) > 60.0 ml/min Glucose 108 H (74-106) mg/dL Calcium 7.3 L (8.5-10.1) mg/dL Total Bilirubin 0.4 (0.2-1.0) mg/dL AST 62 H (15-37) IU/L ALT 43 (14-63) IU/L Alkaline Phosphatase 52 (46-116) U/L Creatine Kinase 1398 H (26-308) U/L Total Protein 5.4 L (6.4-8.2) g/dL Albumin 2.5 L (3.4-5.0) g/dL Globulin 2.9 (2.6-4.0) g/dL Albumin/Globulin Ratio 0.9 (0.9-1.6) Blood Type O POSITIVE Antibody Screen NEGATIVE Crossmatch See Detail Med Orders - Current: Current Medications Acetaminophen (Tylenol) 650 mg PO Q6H PRN PRN Reason: Pain Last Admin: 02/18/19 17:41 Dose: 650 mg Albuterol/Ipratropium (Duoneb 3.0-0.5 Mg/3 Ml) 3 ml NEB Q4HRRT [facility] Last Admin: 02/19/19 09:38 Dose: 3 ml Amlodipine Besylate (Norvasc) 5 mg PO BEDTIME [facility] Last Admin: 02/18/19 21:59 Dose: 5 mg Hydromorphone HCl (Dilaudid) 1 mg IVPUSH Q4H PRN PRN Reason: Pain Last Admin: 02/19/19 04:00 Dose: 1 mg Sodium Chloride (Normal Saline) 1,000 mls @ 150 mls/hr IV ASDIRECTED [facility] Last Admin: 02/19/19 05:11 Dose: 150 mls/hr Cefazolin Sodium/Dextrose 2 gm (/ Premix) 50 mls @ 100 mls/hr IV ONETIME ONE Stop: 02/19/19 13:29 Lorazepam (Ativan) 0.5 mg PO BID PRN PRN Reason: ANXIETY Discontinued Medications Albuterol/Ipratropium (Duoneb 3.0-0.5 Mg/3 Ml) 3 ml NEB Q6HRRT [facility] Last Admin: 02/18/19 11:15 Dose: 3 ml Hydromorphone HCl (Dilaudid) 2 mg IVPUSH ONETIME ONE Stop: 02/17/19 20:57 Last Admin: 02/17/19 21:06 Dose: 2 mg Hydromorphone HCl (Dilaudid) Confirm Administered Dose 2 mg .ROUTE .STK-MED ONE Stop: 02/17/19 21:00 Last Admin: 02/17/19 22:09 Dose: Not Given Hydromorphone HCl (Dilaudid) 0.5 mg IVPUSH Q4H PRN PRN Reason: Pain Last Admin: 02/18/19 11:04 Dose: 0.5 mg Hydromorphone HCl (Dilaudid) 0.5 mg IVPUSH ONETIME ONE Stop: 02/18/19 14:27 Last Admin: 02/18/19 14:43 Dose: 0.5 mg Hydromorphone HCl (Dilaudid) 1 mg IVPUSH ONETIME ONE Stop: 02/19/19 06:38 Last Admin: 02/19/19 06:51 Dose: 1 mg Sodium Chloride (Normal Saline) 1,000 mls @ 999 mls/hr IV STAT ONE Stop: 02/17/19 23:08 Last Admin: 02/17/19 22:13 Dose: 999 mls/hr Iopamidol (Isovue-370 (76%)) 80 ml IVPUSH ONETIME ONE Stop: 02/17/19 22:12 Last Admin: 02/17/19 22:12 Dose: 80 ml Lorazepam (Ativan) 1 mg IVPUSH ONETIME ONE Stop: 02/18/19 12:08 Last Admin: 02/18/19 12:33 Dose: 1 mg Morphine Sulfate (Morphine) 2 mg IVPUSH Q2H PRN PRN Reason: Pain (severe 7-10) Last Admin: 02/18/19 08:45 Dose: 2 mg Tranexamic Acid (Cyklokapron) Confirm Administered Dose 2,000 mg .ROUTE .STK- MED ONE Stop: 02/19/19 07:11 - Exam General: Alert, Oriented HEENT: EOMI Lungs: Wheezing (mild inspiratory wheeze;) Cardiovascular: Regular Rate, Regular Rhythm GI/Abdominal Exam: Soft, Other (radiating pain into right hip) Extremities: Other (right hip: exquisite tenderness especially with movement; sensation intact.) Skin: Warm, Dry, Intact Psy/Mental Status: Alert, Anxious - Problem List & Annotations (1) Dehydration SNOMED Code(s): 43581565 Code(s): E86.0 - DEHYDRATION Status: Acute Current Visit: Yes (2) Fracture, proximal femur SNOMED Code(s): 462294284 Code(s): S72.009A - FRACTURE OF UNSP PART OF NECK OF UNSP FEMUR, INIT Status: Acute Current Visit: Yes Qualifiers: Encounter type: initial encounter Fracture type: closed Laterality: right Qualified Code(s): S72.001A - Fracture of unspecified part of neck of right femur, initial encounter for closed fracture (3) History of COPD SNOMED Code(s): 722886805 Code(s): Z87.09 - PERSONAL HISTORY OF OTHER DISEASES OF THE RESPIRATORY SYSTEM Status: Acute Current Visit: Yes (4) Rhabdomyolysis SNOMED Code(s): 409461435 Code(s): M62.82 - RHABDOMYOLYSIS Status: Acute Current Visit: Yes Qualifiers: Rhabdomyolysis type: traumatic Encounter type: initial encounter Qualified Code(s): T79.6XXA - Traumatic ischemia of muscle, initial encounter (5) Hypertension SNOMED Code(s): 75290158 Code(s): I10 - ESSENTIAL (PRIMARY) HYPERTENSION Status: Chronic Priority : Medium Current Visit: No Qualifiers: Hypertension type: essential hypertension Qualified Code(s): I10 - Essential (primary) hypertension - Problem List Review Problem List Initiated/Reviewed/Updated: Yes - My Orders Last 24 Hours: My Active Orders 02/18/19 10:19 Code Status [Resuscitation Status] Routine 02/18/19 10:40 Vital Signs [RC] PER UNIT ROUTINE 02/18/19 13:57 HYDROmorphone [Dilaudid] 1 mg IVPUSH Q4H PRN 02/18/19 14:00 Albuterol/Ipratropium [DuoNeb 3.0-0.5 MG/3 ML] 3 ml NEB Q4HRRT 02/18/19 14:48 Pulse Oximetry [RC] CONTINUOUS 02/18/19 17:13 Acetaminophen [Tylenol] 650 mg PO Q6H PRN 02/18/19 20:00 LORazepam [Ativan] 0.5 mg PO BID PRN 02/18/19 21:00 amLODIPine [Norvasc] 5 mg PO BEDTIME 02/20/19 05:11 CBC WITH AUTO DIFF [HEME] AM COMPREHENSIVE METABOLIC PN,CMP [CHEM] AM 02/21/19 05:11 CBC WITH AUTO DIFF [HEME] AM COMPREHENSIVE METABOLIC PN,CMP [CHEM] AM - Plan Plan:: assessment: 1. Right proximal femur fracture 2. Rhabdomyolysis 3. Dehydration 4. Leukocytosis 5. Past medical history: COPD, hypertension, depression and anxiety, 6. hypokalemia: mild/asymptomatic Plan: 1. Inpatient. Full code. Diet: heart healthy/nothing by mouth at midnight. Intake outtake routine. Vitals per routine. surgery scheduled for February 19, 2019 15:[address] Zambrano surgery consultation for right proximal femur fracture:nothing by mouth at midnight, continue pain control with Dilaudid 1.0 every 4hrs; discontinue Morphine as pt. pain not controlled. We'll adjust accordingly. Continue home dose of ativan. 3. rhabdomyolysis: continue IV fluids. improving; continue to avoid nephrotoxins ;repeat CPK in a.m. 4. Leukocytosis: per Dr. Zambrano: initiated on Ancef;leukocytes improving. Continue to monitor 5. Past medical history: continue home medications, DuoNeb nebs every 4 hours. <Jake Cam - Last Filed: 02/19/19 16:11> - General Info Admission Dx/Problem (Free Text): I have seen and examined the patient independently of Dr. Vanessa MD. I have reviewed and agree with the plan of care as outlined for this patient by him. I have discussed the case with him. Please see orders. - Patient Data Vitals - Most Recent: Last Vital Signs Temp 36.2 C 02/19/19 15:25 Pulse 110 H 02/19/19 16:00 Resp 18 02/19/19 16:00 BP 150/76 H 02/19/19 16:00 Pulse Ox 93 L 02/19/19 16:00 I&O - Last 24 Hours: Intake & Output 02/19/19 02/19/19 02/19/19 06:59 14:59 22:59 Intake Total 3608 94 700 Output Total 700 140 Balance 2908 94 560 Lab Results Last 24 Hours: Laboratory Results - last 24 hr 02/19/19 02/19/19 02/19/19 Range/Units 05:56 05:56 07:07 WBC 12.80 H (4.0-11.0) K/uL RBC 3.08 L (4.30-5.90) M/uL Hgb 8.9 L (12.0-16.0) g/dL Hct 27.3 L (36.0-46.0) % MCV 88.6 (80.0-98.0) fL MCH 28.9 (27.0-32.0) pg MCHC 32.6 (31.0-37.0) g/dL RDW Std Deviation 45.0 (28.0-62.0) fl RDW Coeff of Peter 14 (11.0-15.0) % Plt Count 383 (150-400) K/uL MPV 8.80 (7.40-12.00) fL Neut % (Auto) 80.5 H (48.0-80.0) % Lymph % (Auto) 6.6 L (16.0-40.0) % [place] % (Auto) 11.5 (0.0-15.0) % Eos % (Auto) 1.3 (0.0-7.0) % Baso % (Auto) 0.1 (0.0-1.5) % Neut # (Auto) 10.3 H (1.4-5.7) K/uL Lymph # (Auto) 0.9 (0.6-2.4) K/uL [place] # (Auto) 1.5 H (0.0-0.8) K/uL Eos # (Auto) 0.2 (0.0-0.7) K/uL Baso # (Auto) 0.0 (0.0-0.1) K/uL Nucleated RBC % 0.0 /100WBC Nucleated RBCs # 0 K/uL Sodium 135 L (136-145) mmol/L Potassium 3.4 L (3.5-5.1) mmol/L Chloride 103 (98-107) mmol/L Carbon Dioxide 22.9 (21.0-32.0) mmol/L BUN 5 L (7.0-18.0) mg/dL Creatinine 0.5 L (0.6-1.0) mg/dL Est Cr Clr Drug Dosing 103.61 mL/min Estimated GFR (MDRD) > 60.0 ml/min Glucose 108 H (74-106) mg/dL Calcium 7.3 L (8.5-10.1) mg/dL Total Bilirubin 0.4 (0.2-1.0) mg/dL AST 62 H (15-37) IU/L ALT 43 (14-63) IU/L Alkaline Phosphatase 52 (46-116) U/L Creatine Kinase 1398 H (26-308) U/L Total Protein 5.4 L (6.4-8.2) g/dL Albumin 2.5 L (3.4-5.0) g/dL Globulin 2.9 (2.6-4.0) g/dL Albumin/Globulin Ratio 0.9 (0.9-1.6) Blood Type O POSITIVE Antibody Screen NEGATIVE Crossmatch See Detail Med Orders - Current: Current Medications Acetaminophen (Tylenol) 650 mg PO Q6H PRN PRN Reason: Pain Last Admin: 02/18/19 17:41 Dose: 650 mg Albuterol/Ipratropium (Duoneb 3.0-0.5 Mg/3 Ml) 3 ml NEB Q4HRRT [facility] Last Admin: 02/19/19 13:29 Dose: 3 ml Amlodipine Besylate (Norvasc) 5 mg PO BEDTIME [facility] Last Admin: 02/18/19 21:59 Dose: 5 mg Hydromorphone HCl (Dilaudid) 1 mg IVPUSH Q4H PRN PRN Reason: Pain Last Admin: 02/19/19 10:29 Dose: 1 mg Sodium Chloride (Normal Saline) 1,000 mls @ 150 mls/hr IV ASDIRECTED [facility] Last Admin: 02/19/19 12:04 Dose: 150 mls/hr Cefazolin Sodium/Dextrose 2 gm (/ Premix) 50 mls @ 100 mls/hr IV Q8H [facility] Lorazepam (Ativan) 0.5 mg PO BID PRN PRN Reason: ANXIETY Discontinued Medications Albuterol/Ipratropium (Duoneb 3.0-0.5 Mg/3 Ml) 3 ml NEB Q6HRRT [facility] Last Admin: 02/18/19 11:15 Dose: 3 ml Bupivacaine HCl (Marcaine 0.5%) Confirm Administered Dose 30 ml .ROUTE .STK-MED ONE Stop: 02/19/19 13:02 Cefazolin Sodium (Ancef) Confirm Administered Dose 2 gm .ROUTE .STK-MED ONE Stop: 02/19/19 13:09 Fentanyl (Sublimaze) Confirm Administered Dose 100 mcg .ROUTE .STK-MED ONE Stop: 02/19/19 12:49 Glycopyrrolate (Robinul) Confirm Administered Dose 0.2 mg .ROUTE .STK-MED ONE Stop: 02/19/19 12:51 Hydromorphone HCl (Dilaudid) 2 mg IVPUSH ONETIME ONE Stop: 02/17/19 20:57 Last Admin: 02/17/19 21:06 Dose: 2 mg Hydromorphone HCl (Dilaudid) Confirm Administered Dose 2 mg .ROUTE .STK-MED ONE Stop: 02/17/19 21:00 Last Admin: 02/17/19 22:09 Dose: Not Given Hydromorphone HCl (Dilaudid) 0.5 mg IVPUSH Q4H PRN PRN Reason: Pain Last Admin: 02/18/19 11:04 Dose: 0.5 mg Hydromorphone HCl (Dilaudid) 0.5 mg IVPUSH ONETIME ONE Stop: 02/18/19 14:27 Last Admin: 02/18/19 14:43 Dose: 0.5 mg Hydromorphone HCl (Dilaudid) 1 mg IVPUSH ONETIME ONE Stop: 02/19/19 06:38 Last Admin: 02/19/19 06:51 Dose: 1 mg Sodium Chloride (Normal Saline) 1,000 mls @ 999 mls/hr IV STAT ONE Stop: 02/17/19 23:08 Last Admin: 02/17/19 22:13 Dose: 999 mls/hr Cefazolin Sodium/Dextrose 2 gm (/ Premix) 50 mls @ 100 mls/hr IV ONETIME ONE Stop: 02/19/19 13:29 Sodium Chloride (Normal Saline) Confirm Administered Dose 20 mls @ as directed .ROUTE .STK-MED ONE Stop: 02/19/19 13:09 Iopamidol (Isovue-370 (76%)) 80 ml IVPUSH ONETIME ONE Stop: 02/17/19 22:12 Last Admin: 02/17/19 22:12 Dose: 80 ml Ketamine HCl (Ketalar) Confirm Administered Dose 500 mg .ROUTE .STK-MED ONE Stop: 02/19/19 13:53 Lidocaine (Xylocaine-Mpf 2%) Confirm Administered Dose 5 ml .ROUTE .STK-MED ONE Stop: 02/19/19 12:51 Lorazepam (Ativan) 1 mg IVPUSH ONETIME ONE Stop: 02/18/19 12:08 Last Admin: 02/18/19 12:33 Dose: 1 mg Midazolam HCl (Versed 1 Mg/Ml) Confirm Administered Dose 4 mg .ROUTE .STK-MED ONE Stop: 02/19/19 12:50 Morphine Sulfate (Morphine) 2 mg IVPUSH Q2H PRN PRN Reason: Pain (severe 7-10) Last Admin: 02/18/19 08:45 Dose: 2 mg Ondansetron HCl (Zofran) Confirm Administered Dose 4 mg .ROUTE .STK-MED ONE Stop: 02/19/19 12:51 Propofol (Diprivan 20 Ml) Confirm Administered Dose 200 mg .ROUTE .STK-MED ONE Stop: 02/19/19 14:42 Propofol (Diprivan 20 Ml) Confirm Administered Dose 200 mg .ROUTE .STK-MED ONE Stop: 02/19/19 14:42 Tranexamic Acid (Cyklokapron) Confirm Administered Dose 2,000 mg .ROUTE .STK- MED ONE Stop: 02/19/19 07:11
[2019-02-19] MEDS ORDERED: fentaNYL 100 MCG/2 ML SDV ONE (12:48)
[2019-02-19] MEDS ORDERED: Midazolam 1 MG/ML 2 ML SDV ONE (12:49)
[2019-02-19] MEDS ORDERED: Glycopyrrolate 0.2 MG/ML SDV ONE (12:50)
[2019-02-19] MEDS ORDERED: Lidocaine 2% 5 ML SDV ONE (12:50)
[2019-02-19] MEDS ORDERED: Ondansetron 4 MG/2 ML SDV ONE (12:50)
[2019-02-19] MEDS ORDERED: ceFAZolin 2 GM in Premix Bag 1 BAG IV ONE (13:00)
[2019-02-19] MEDS ORDERED: Bupivacaine 0.5% 30 ML SDV ONE (13:01)
[2019-02-19] MEDS ORDERED: ceFAZolin 1 GM Vial ONE (13:08)
[2019-02-19] MEDS ORDERED: Sodium Chloride 0.9% 20 ML ONE (13:08)
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
[2019-02-19] MEDS ORDERED: Ketamine 500 mg/10 ML MDV ONE (13:52)
[2019-02-19] MEDS ORDERED: Propofol 200 MG/20 ML SDV ONE ×2 (14:41)
--- NOTE | 2019-02-19 15:21 | PCM.OPNOTE ---
- General Post-Op/Procedure Note Date of Surgery/Procedure: 02/19/19 Operative Procedure(s): closed reduction, cephalomedullary nailing right proximal femur fracture Findings: comminution Pre Op Diagnosis: right hip peritrochanteric fracture Post-Op Diagnosis: same Anesthesia Technique: Moderate Sedation, Spinal Primary Surgeon: Pipe Jose Mai [employer] Merchandiser: Neema Salas [employer] Merchandiser: Esperanza Presley EBL in mLs: 30 Complications: none Condition: Fair Free Text/Narrative:: Intake & Output 02/19/19 02/19/19 02/19/19 06:59 14:59 22:59 Intake Total 3608 94 Output Total 700 Balance 2908 94
--- NOTE | 2019-02-19 16:03 | PCM.POSTAN ---
POST ANESTHESIA ASSESSMENT - MENTAL STATUS Mental Status: Alert - VITAL SIGNS Vital Signs: Last Vital Signs Temp 36.2 C 02/19/19 15:25 Pulse 111 H 02/19/19 15:45 Resp 20 02/19/19 15:45 BP 143/79 H 02/19/19 15:45 Pulse Ox 92 L 02/19/19 15:45 - RESPIRATORY Respiratory Status: Respiratory Rate WNL - CARDIOVASCULAR CV Status: Pulse Rate WNL - GASTROINTESTINAL GI Status: No Symptoms - POST OP HYDRATION Hydration Status: Adequate & Stable
--- NOTE | 2019-02-19 16:46 | OR ---
SURGEON: Pipe Zambrano MD DATE OF PROCEDURE: 02/19/2019 PRIMARY SURGEON: Pipe Zambrano MD. ASSISTANTS: Neema Salas PA-C and FERNIE Kimble. PREOPERATIVE DIAGNOSIS: Right hip peritrochanteric fracture. POSTOPERATIVE DIAGNOSIS: Right hip peritrochanteric fracture. OPERATION PERFORMED: Closed reduction with cephalomedullary nailing, right proximal femur fracture. ANESTHESIA: Spinal sedation. COMPLICATIONS: None. ESTIMATED BLOOD LOSS: 30 mL. SPECIMENS: None. IMPLANTS: [place] Gamma nail right long 10 x 360 mm, 125 degrees angle, one 10.5 x 90 mm length lag screw, and one 5 x 40 mm distal interlocking screw. INDICATIONS: The patient is a 68-year-old female who fell at home and was lying on the floor for more than a day before being able to be taken to the ER. She had some rhabdomyolysis. She is cleared for surgery. Her and her family understands the risks, benefits, alternatives, complications of above procedure, including but not limited to, infection, neurovascular injury, continued pain, nonresolution of symptoms, malunion, nonunion, need for further surgery, and they wished to proceed. DESCRIPTION OF PROCEDURE: The patient was seen in preoperative area, operative extremity was marked. The patient was transferred to the operating room. Spinal anesthetic was given. She was placed supine on the fracture table. The right leg was placed in the traction boot and the left leg in a well-leg blackwell with a narrow perineal post. Traction was applied to the right leg and then a formal time-out was taken identifying correct patient, procedure, and extremity. Traction was applied and the leg was internally and externally rotated. There was noted to be a near anatomic reduction. The lesser trochanter was off nearly completely. There was minimal sag on posterior. This was confirmed under AP and lateral views, and then the right hip was prepped and draped in usual fashion using alcohol followed by ChloraPrep with Ioban covering. Anatomic landmarks were marked out on the proximal femur and then an incision just superior to the tip of the trochanter about 2.5 cm was made. IT band was opened and an awl was placed on the tip of the greater trochanter slightly anteriorly. A guide pin was then placed down into the distal femur which was confirmed under fluoroscopy. This measured approximately 370 mm and therefore 360 mm nail was decided upon. The opening reamer was then used under fluoroscopic control taking care to push laterally and then a 12 mm reamer was placed down the femur. Then, the 10 x 360 mm nail was placed down until the proximal was just past the tip of the trochanter. Then, a stab incision was made laterally and a guide pin was placed into the center-center position under AP and lateral views. This was exact center-center and this measured 90 mm. Then, the lateral cortex was drilled open and then the 10.5 x 90 mm lag screw was placed across. This was all done after removing the guidewire. The guide pin was removed and the outrigger for the nail was removed. The leg was then abducted and from lateral viewing of the distal femur, perfect circles were made in the proximal interlocking screw after drilling perfect circles was introduced across. This measured 40 mm on AP and then a 5 x 40 mm screw was placed across this. AP and lateral views confirmed near anatomic reduction of the hip and all interlocking screws will be placed in adequate position. The wound was then irrigated. The subcutaneous tissues closed with 2-0 Vicryl, skin with kerline. Xeroform and sterile dressings were placed. The patient was transferred to recovery room in stable condition. Sponge and needle counts were correct at the end of the case. There were no complications. MICHELLE CLAY /[id number]
[2019-02-19] MEDS: Acetaminophen 325 MG Tab PO PRN (18:07)
[2019-02-19] MEDS ORDERED: Melatonin 3 MG Tab PO PRN (18:34)
[2019-02-19] MEDS ORDERED: Ondansetron 4 MG Tab.DIS PO PRN (18:36)
[2019-02-19] MEDS: ceFAZolin 2 GM in Premix Bag 1 BAG IV SCH (20:35)
[2019-02-19] MEDS: amLODIPine 5 MG Tab PO SCH (20:37)
[2019-02-20] MEDS: Albuterol/Ipratropium 3.0-0.5 MG/3 ML Neb Soln NEB SCH ×6 (02:16→21:05)
[2019-02-20] MEDS: HYDROmorphone 1 MG/ML Syringe IVPUSH PRN ×2 (02:18→06:24)
[2019-02-20] MEDS: ceFAZolin 2 GM in Premix Bag 1 BAG IV SCH ×4 (03:17→22:21)
[2019-02-20 07:21] LABS: BLOOD UREA NITROGEN,BUN 3 mg/dL (7.0-18.0); CARBON DIOXIDE,CO2 26.2 mmol/L (21.0-32.0); CHLORIDE,CL 100 mmol/L (98-107); GLUCOSE RANDOM 99 mg/dL (74-106); POTASSIUM,K 3.6 mmol/L (3.5-5.1); SODIUM,NA 134 mmol/L (136-145)
--- NOTE | 2019-02-20 07:23 | PCM.SN ---
- Free Text/Narrative Note: S: pain is better than yesterday. has not been out of bed. tolerating PO. no other issues no cp/sob. transfused yesterday O: afebrile vital signs stable right hip with swelling, but minimal distally. dressing clean/dry/intact with no drainage. normal sensation and motor distally with palpable pedal pulse. A/P: POD #1 CM nailing right hip for peritrochanteric hip fracture - rhabdomyolysis per IM - full weight bearing with walker, PT to get up today. - will require SNF on discharge. - SCDs and DVT prophylaxis per primary - f/u in clinic in 2 weeks.
[2019-02-20] MEDS: Sodium Chloride 0.9% 1,000 ML IV SCH ×2 (08:24→17:31)
[2019-02-20] MEDS: oxyCODONE 5 MG Tab PO PRN ×3 (09:46→20:13)
[2019-02-20] MEDS: LORazepam 0.5 MG Tab PO PRN (09:56)
--- NOTE | 2019-02-20 10:05 | PCM48HPAN ---
Post Anesthesia Note - EVALUATION WITHIN 48HRS OF ANESTHETIC Vital Signs in Normal Range: Yes Patient Participated in Evaluation: Yes Respiratory Function Stable: Yes Airway Patent: Yes Cardiovascular Function Stable: Yes Hydration Status Stable: Yes Pain Control Satisfactory: Yes Nausea and Vomiting Control Satisfactory: Yes Mental Status Recovered: Yes Vital Signs: Last Vital Signs Temp 37.1 C 02/20/19 04:19 Pulse 108 H 02/20/19 04:19 Resp 23 H 02/20/19 04:19 BP 150/71 H 02/20/19 04:19 Pulse Ox 94 L 02/20/19 04:19 - COMMENTS/OBSERVATIONS Free Text/Narrative:: no anesthesia problems
--- NOTE | 2019-02-20 10:51 | PCM.PN ---
<Tawana Mendez - Last Filed: 02/20/19 10:45> - General Info Date of Service: 02/20/19 Subjective Update: Patient is a 68-year-old female, currently on postop day 2 for a right femur cephalomedullary nailing; this a.m. complains of no pain however during rounds did have a bout of increased right hip pain. Otherwise patient does not have any other complaints or concerns at this time. - Patient Data Vitals - Most Recent: Last Vital Signs Temp 98.8 F 02/20/19 04:19 Pulse 108 H 02/20/19 04:19 Resp 23 H 02/20/19 04:19 BP 150/71 H 02/20/19 04:19 Pulse Ox 94 L 02/20/19 04:19 Weight - Most Recent: 68.039 kg I&O - Last 24 Hours: Intake & Output 02/19/19 02/20/19 02/20/19 22:59 06:59 14:59 Intake Total 750 2000 Output Total 740 1700 Balance 10 300 Lab Results Last 24 Hours: Laboratory Results - last 24 hr 02/19/19 02/20/19 02/20/19 Range/Units 07:07 05:48 05:48 WBC 10.95 (4.0-11.0) K/uL RBC 3.49 L (4.30-5.90) M/uL Hgb 10.0 L (12.0-16.0) g/dL Hct 30.4 L (36.0-46.0) % MCV 87.1 (80.0-98.0) fL MCH 28.7 (27.0-32.0) pg MCHC 32.9 (31.0-37.0) g/dL RDW Std Deviation 44.2 (28.0-62.0) fl RDW Coeff of Peter 14 (11.0-15.0) % Plt Count 362 (150-400) K/uL MPV 8.90 (7.40-12.00) fL Neut % (Auto) 74.6 (48.0-80.0) % Lymph % (Auto) 7.4 L (16.0-40.0) % [place] % (Auto) 13.4 (0.0-15.0) % Eos % (Auto) 4.4 (0.0-7.0) % Baso % (Auto) 0.2 (0.0-1.5) % Neut # (Auto) 8.2 H (1.4-5.7) K/uL Lymph # (Auto) 0.8 (0.6-2.4) K/uL [place] # (Auto) 1.5 H (0.0-0.8) K/uL Eos # (Auto) 0.5 (0.0-0.7) K/uL Baso # (Auto) 0.0 (0.0-0.1) K/uL Nucleated RBC % 0.0 /100WBC Nucleated RBCs # 0 K/uL Sodium 134 L (136-145) mmol/L Potassium 3.6 (3.5-5.1) mmol/L Chloride 100 (98-107) mmol/L Carbon Dioxide 26.2 (21.0-32.0) mmol/L BUN 3 L (7.0-18.0) mg/dL Creatinine 0.5 L (0.6-1.0) mg/dL Est Cr Clr Drug Dosing 103.61 mL/min Estimated GFR (MDRD) > 60.0 ml/min Glucose 99 (74-106) mg/dL Calcium 7.2 L (8.5-10.1) mg/dL Total Bilirubin 0.5 (0.2-1.0) mg/dL AST 46 H (15-37) IU/L ALT 38 (14-63) IU/L Alkaline Phosphatase 55 (46-116) U/L Total Protein 5.1 L (6.4-8.2) g/dL Albumin 2.2 L (3.4-5.0) g/dL Globulin 2.9 (2.6-4.0) g/dL Albumin/Globulin Ratio 0.8 L (0.9-1.6) Blood Type O POSITIVE Antibody Screen NEGATIVE Crossmatch See Detail Med Orders - Current: Current Medications Acetaminophen (Tylenol) 650 mg PO Q4H PRN PRN Reason: Fever Albuterol/Ipratropium (Duoneb 3.0-0.5 Mg/3 Ml) 3 ml NEB Q4HRRT [facility] Last Admin: 02/20/19 09:58 Dose: 3 ml Amlodipine Besylate (Norvasc) 5 mg PO BEDTIME [facility] Last Admin: 02/19/19 20:37 Dose: 5 mg Cefazolin Sodium/Dextrose 2 gm (/ Premix) 50 mls @ 100 mls/hr IV Q8H [facility] Last Admin: 02/20/19 03:17 Dose: 100 mls/hr Sodium Chloride (Normal Saline) 1,000 mls @ 125 mls/hr IV Q8H [facility] Last Admin: 02/20/19 08:24 Dose: 125 mls/hr Lorazepam (Ativan) 0.5 mg PO BID PRN PRN Reason: ANXIETY Last Admin: 02/20/19 09:56 Dose: 0.5 mg Melatonin (Melatonin) 3 mg PO BEDTIME PRN PRN Reason: Insomnia Ondansetron HCl (Zofran Odt) 4 mg PO Q4H PRN PRN Reason: Nausea/Vomiting Oxycodone HCl (Oxycodone) 10 mg PO Q4H PRN PRN Reason: Pain Last Admin: 02/20/19 09:46 Dose: 10 mg Discontinued Medications Acetaminophen (Tylenol) 650 mg PO Q6H PRN PRN Reason: Pain Last Admin: 02/19/19 18:07 Dose: 650 mg Albuterol/Ipratropium (Duoneb 3.0-0.5 Mg/3 Ml) 3 ml NEB Q6HRRT [facility] Last Admin: 02/18/19 11:15 Dose: 3 ml Bupivacaine HCl (Marcaine 0.5%) Confirm Administered Dose 30 ml .ROUTE .STK-MED ONE Stop: 02/19/19 13:02 Cefazolin Sodium (Ancef) Confirm Administered Dose 2 gm .ROUTE .STK-MED ONE Stop: 02/19/19 13:09 Fentanyl (Sublimaze) Confirm Administered Dose 100 mcg .ROUTE .STK-MED ONE Stop: 02/19/19 12:49 Glycopyrrolate (Robinul) Confirm Administered Dose 0.2 mg .ROUTE .STK-MED ONE Stop: 02/19/19 12:51 Hydromorphone HCl (Dilaudid) 2 mg IVPUSH ONETIME ONE Stop: 02/17/19 20:57 Last Admin: 02/17/19 21:06 Dose: 2 mg Hydromorphone HCl (Dilaudid) Confirm Administered Dose 2 mg .ROUTE .STK-MED ONE Stop: 02/17/19 21:00 Last Admin: 02/17/19 22:09 Dose: Not Given Hydromorphone HCl (Dilaudid) 0.5 mg IVPUSH Q4H PRN PRN Reason: Pain Last Admin: 02/18/19 11:04 Dose: 0.5 mg Hydromorphone HCl (Dilaudid) 1 mg IVPUSH Q4H PRN PRN Reason: Pain Last Admin: 02/20/19 06:24 Dose: 1 mg Hydromorphone HCl (Dilaudid) 0.5 mg IVPUSH ONETIME ONE Stop: 02/18/19 14:27 Last Admin: 02/18/19 14:43 Dose: 0.5 mg Hydromorphone HCl (Dilaudid) 1 mg IVPUSH ONETIME ONE Stop: 02/19/19 06:38 Last Admin: 02/19/19 06:51 Dose: 1 mg Sodium Chloride (Normal Saline) 1,000 mls @ 999 mls/hr IV STAT ONE Stop: 02/17/19 23:08 Last Admin: 02/17/19 22:13 Dose: 999 mls/hr Sodium Chloride (Normal Saline) 1,000 mls @ 150 mls/hr IV ASDIRECTED [facility] Last Admin: 02/19/19 12:04 Dose: 150 mls/hr Cefazolin Sodium/Dextrose 2 gm (/ Premix) 50 mls @ 100 mls/hr IV ONETIME ONE Stop: 02/19/19 13:29 Last Admin: 02/19/19 16:31 Dose: Not Given Sodium Chloride (Normal Saline) Confirm Administered Dose 20 mls @ as directed .ROUTE .STK-MED ONE Stop: 02/19/19 13:09 Iopamidol (Isovue-370 (76%)) 80 ml IVPUSH ONETIME ONE Stop: 02/17/19 22:12 Last Admin: 02/17/19 22:12 Dose: 80 ml Ketamine HCl (Ketalar) Confirm Administered Dose 500 mg .ROUTE .STK-MED ONE Stop: 02/19/19 13:53 Lidocaine (Xylocaine-Mpf 2%) Confirm Administered Dose 5 ml .ROUTE .STK-MED ONE Stop: 02/19/19 12:51 Lorazepam (Ativan) 1 mg IVPUSH ONETIME ONE Stop: 02/18/19 12:08 Last Admin: 02/18/19 12:33 Dose: 1 mg Midazolam HCl (Versed 1 Mg/Ml) Confirm Administered Dose 4 mg .ROUTE .STK-MED ONE Stop: 02/19/19 12:50 Morphine Sulfate (Morphine) 2 mg IVPUSH Q2H PRN PRN Reason: Pain (severe 7-10) Last Admin: 02/18/19 08:45 Dose: 2 mg Ondansetron HCl (Zofran) Confirm Administered Dose 4 mg .ROUTE .STK-MED ONE Stop: 02/19/19 12:51 Propofol (Diprivan 20 Ml) Confirm Administered Dose 200 mg .ROUTE .STK-MED ONE Stop: 02/19/19 14:42 Propofol (Diprivan 20 Ml) Confirm Administered Dose 200 mg .ROUTE .STK-MED ONE Stop: 02/19/19 14:42 Tranexamic Acid (Cyklokapron) Confirm Administered Dose 2,000 mg .ROUTE .STK- MED ONE Stop: 02/19/19 07:11 - Exam General: Alert, Oriented HEENT: EOMI Lungs: Clear to Auscultation, Normal Respiratory Effort Cardiovascular: Regular Rate, Regular Rhythm GI/Abdominal Exam: Soft, Non-Tender Extremities: Other (right hip tenderness; limited range of motion secondary to pain; healing well) Wound/Incisions: Healing Well Neurological: No New Focal Deficit Psy/Mental Status: Alert, Anxious - Problem List & Annotations (1) Dehydration SNOMED Code(s): 83591409 Code(s): E86.0 - DEHYDRATION Status: Acute Current Visit: Yes (2) Fracture, proximal femur SNOMED Code(s): 596152429 Code(s): S72.009A - FRACTURE OF UNSP PART OF NECK OF UNSP FEMUR, INIT Status: Acute Current Visit: Yes Qualifiers: Encounter type: initial encounter Fracture type: closed Laterality: right Qualified Code(s): S72.001A - Fracture of unspecified part of neck of right femur, initial encounter for closed fracture (3) History of COPD SNOMED Code(s): 358172322 Code(s): Z87.09 - PERSONAL HISTORY OF OTHER DISEASES OF THE RESPIRATORY SYSTEM Status: Acute Current Visit: Yes (4) Rhabdomyolysis SNOMED Code(s): 821388326 Code(s): M62.82 - RHABDOMYOLYSIS Status: Acute Current Visit: Yes Qualifiers: Rhabdomyolysis type: traumatic Encounter type: initial encounter Qualified Code(s): T79.6XXA - Traumatic ischemia of muscle, initial encounter (5) Hypertension SNOMED Code(s): 18782682 Code(s): I10 - ESSENTIAL (PRIMARY) HYPERTENSION Status: Chronic Priority : Medium Current Visit: No Qualifiers: Hypertension type: essential hypertension Qualified Code(s): I10 - Essential (primary) hypertension - Problem List Review Problem List Initiated/Reviewed/Updated: Yes - My Orders Last 24 Hours: My Active Orders 02/19/19 17:14 Sodium Chloride 0.9% [Normal Saline] 1,000 ml IV Q8H 02/19/19 18:34 Melatonin 3 mg PO BEDTIME PRN 02/19/19 18:36 Acetaminophen [Tylenol] 650 mg PO Q4H PRN Ondansetron [Zofran ODT] 4 mg PO Q4H PRN 02/20/19 09:20 oxyCODONE 10 mg PO Q4H PRN 02/20/19 10:45 cefTRIAXone [Rocephin] 1 gm Sodium Chloride 0.9% [Normal Saline] 50 ml IV Q12H 02/21/19 05:11 CBC WITH AUTO DIFF [HEME] AM COMPREHENSIVE METABOLIC PN,CMP [CHEM] AM - Plan Plan:: assessment: 1. Right proximal femur fracture status post cephalo-medullary pinning 2. Rhabdomyolysis:improving 3. Dehydration:resolved 4. Leukocytosis:resolved 5. Past medical history: COPD, hypertension, depression and anxiety, 6. hypokalemia: resolved/asymptomatic Plan: 1. Inpatient. Full code. Diet: heart healthy.Intake outtake routine. Vitals per routine. surgery completed. 2. right proximal femur fracture:discontinue Dilaudid 1 mg every 4; will switch to oxycodone 10 mg every 4 hours for pain control. Continue Ativan for anxiety when necessary. 3. rhabdomyolysis: continue IV fluids. improving; continue to avoid nephrotoxins ; 4. Leukocytosis: we'll continue with ceftriaxone 2 g daily for 4 more additional days as empiric treatment. 5. Past medical history: continue home medications, DuoNeb nebs every 4 hours. <Jake Cam - Last Filed: 02/20/19 13:21> - General Info Admission Dx/Problem (Free Text): I have examined the patient independently of medical billing supervisor, Dr. Vanessa MD. I have discussed the case with him. I have reviewed and agree with the plan of care as outlined for the patient by him. Please see orders. - Patient Data Vitals - Most Recent: Last Vital Signs Temp 37.4 C 02/20/19 11:00 Pulse 104 H 02/20/19 11:00 Resp 20 02/20/19 11:00 BP 136/63 02/20/19 11:00 Pulse Ox 93 L 02/20/19 11:00 I&O - Last 24 Hours: Intake & Output 02/19/19 02/20/19 02/20/19 22:59 06:59 14:59 Intake Total 750 2000 Output Total 740 1700 Balance 10 300 Lab Results Last 24 Hours: Laboratory Results - last 24 hr 02/19/19 02/20/19 02/20/19 Range/Units 07:07 05:48 05:48 WBC 10.95 (4.0-11.0) K/uL RBC 3.49 L (4.30-5.90) M/uL Hgb 10.0 L (12.0-16.0) g/dL Hct 30.4 L (36.0-46.0) % MCV 87.1 (80.0-98.0) fL MCH 28.7 (27.0-32.0) pg MCHC 32.9 (31.0-37.0) g/dL RDW Std Deviation 44.2 (28.0-62.0) fl RDW Coeff of Peter 14 (11.0-15.0) % Plt Count 362 (150-400) K/uL MPV 8.90 (7.40-12.00) fL Neut % (Auto) 74.6 (48.0-80.0) % Lymph % (Auto) 7.4 L (16.0-40.0) % [place] % (Auto) 13.4 (0.0-15.0) % Eos % (Auto) 4.4 (0.0-7.0) % Baso % (Auto) 0.2 (0.0-1.5) % Neut # (Auto) 8.2 H (1.4-5.7) K/uL Lymph # (Auto) 0.8 (0.6-2.4) K/uL [place] # (Auto) 1.5 H (0.0-0.8) K/uL Eos # (Auto) 0.5 (0.0-0.7) K/uL Baso # (Auto) 0.0 (0.0-0.1) K/uL Nucleated RBC % 0.0 /100WBC Nucleated RBCs # 0 K/uL Sodium 134 L (136-145) mmol/L Potassium 3.6 (3.5-5.1) mmol/L Chloride 100 (98-107) mmol/L Carbon Dioxide 26.2 (21.0-32.0) mmol/L BUN 3 L (7.0-18.0) mg/dL Creatinine 0.5 L (0.6-1.0) mg/dL Est Cr Clr Drug Dosing 103.61 mL/min Estimated GFR (MDRD) > 60.0 ml/min Glucose 99 (74-106) mg/dL Calcium 7.2 L (8.5-10.1) mg/dL Total Bilirubin 0.5 (0.2-1.0) mg/dL AST 46 H (15-37) IU/L ALT 38 (14-63) IU/L Alkaline Phosphatase 55 (46-116) U/L Total Protein 5.1 L (6.4-8.2) g/dL Albumin 2.2 L (3.4-5.0) g/dL Globulin 2.9 (2.6-4.0) g/dL Albumin/Globulin Ratio 0.8 L (0.9-1.6) Blood Type O POSITIVE Antibody Screen NEGATIVE Crossmatch See Detail Med Orders - Current: Current Medications Acetaminophen (Tylenol) 650 mg PO Q4H PRN PRN Reason: Fever Albuterol/Ipratropium (Duoneb 3.0-0.5 Mg/3 Ml) 3 ml NEB Q4HRRT [facility] Last Admin: 02/20/19 09:58 Dose: 3 ml Amlodipine Besylate (Norvasc) 5 mg PO BEDTIME [facility] Last Admin: 02/19/19 20:37 Dose: 5 mg Cefazolin Sodium/Dextrose 2 gm (/ Premix) 50 mls @ 100 mls/hr IV Q8H [facility] Last Admin: 02/20/19 03:17 Dose: 100 mls/hr Sodium Chloride (Normal Saline) 1,000 mls @ 125 mls/hr IV Q8H [facility] Last Admin: 02/20/19 08:24 Dose: 125 mls/hr Ceftriaxone Sodium 1 gm/ (Sodium Chloride) 50 mls @ 100 mls/hr IV Q12H [facility] Stop: 02/25/19 10:46 Last Admin: 02/20/19 12:23 Dose: 100 mls/hr Lorazepam (Ativan) 0.5 mg PO BID PRN PRN Reason: ANXIETY Last Admin: 02/20/19 09:56 Dose: 0.5 mg Melatonin (Melatonin) 3 mg PO BEDTIME PRN PRN Reason: Insomnia Ondansetron HCl (Zofran Odt) 4 mg PO Q4H PRN PRN Reason: Nausea/Vomiting Oxycodone HCl (Oxycodone) 10 mg PO Q4H PRN PRN Reason: Pain Last Admin: 02/20/19 09:46 Dose: 10 mg Discontinued Medications Acetaminophen (Tylenol) 650 mg PO Q6H PRN PRN Reason: Pain Last Admin: 02/19/19 18:07 Dose: 650 mg Albuterol/Ipratropium (Duoneb 3.0-0.5 Mg/3 Ml) 3 ml NEB Q6HRRT [facility] Last Admin: 02/18/19 11:15 Dose: 3 ml Bupivacaine HCl (Marcaine 0.5%) Confirm Administered Dose 30 ml .ROUTE .STK-MED ONE Stop: 02/19/19 13:02 Cefazolin Sodium (Ancef) Confirm Administered Dose 2 gm .ROUTE .STK-MED ONE Stop: 02/19/19 13:09 Fentanyl (Sublimaze) Confirm Administered Dose 100 mcg .ROUTE .STK-MED ONE Stop: 02/19/19 12:49 Glycopyrrolate (Robinul) Confirm Administered Dose 0.2 mg .ROUTE .STK-MED ONE Stop: 02/19/19 12:51 Hydromorphone HCl (Dilaudid) 2 mg IVPUSH ONETIME ONE Stop: 02/17/19 20:57 Last Admin: 02/17/19 21:06 Dose: 2 mg Hydromorphone HCl (Dilaudid) Confirm Administered Dose 2 mg .ROUTE .STK-MED ONE Stop: 02/17/19 21:00 Last Admin: 02/17/19 22:09 Dose: Not Given Hydromorphone HCl (Dilaudid) 0.5 mg IVPUSH Q4H PRN PRN Reason: Pain Last Admin: 02/18/19 11:04 Dose: 0.5 mg Hydromorphone HCl (Dilaudid) 1 mg IVPUSH Q4H PRN PRN Reason: Pain Last Admin: 02/20/19 06:24 Dose: 1 mg Hydromorphone HCl (Dilaudid) 0.5 mg IVPUSH ONETIME ONE Stop: 02/18/19 14:27 Last Admin: 02/18/19 14:43 Dose: 0.5 mg Hydromorphone HCl (Dilaudid) 1 mg IVPUSH ONETIME ONE Stop: 02/19/19 06:38 Last Admin: 02/19/19 06:51 Dose: 1 mg Sodium Chloride (Normal Saline) 1,000 mls @ 999 mls/hr IV STAT ONE Stop: 02/17/19 23:08 Last Admin: 02/17/19 22:13 Dose: 999 mls/hr Sodium Chloride (Normal Saline) 1,000 mls @ 150 mls/hr IV ASDIRECTED [facility] Last Admin: 02/19/19 12:04 Dose: 150 mls/hr Cefazolin Sodium/Dextrose 2 gm (/ Premix) 50 mls @ 100 mls/hr IV ONETIME ONE Stop: 02/19/19 13:29 Last Admin: 02/19/19 16:31 Dose: Not Given Sodium Chloride (Normal Saline) Confirm Administered Dose 20 mls @ as directed .ROUTE .STK-MED ONE Stop: 02/19/19 13:09 Iopamidol (Isovue-370 (76%)) 80 ml IVPUSH ONETIME ONE Stop: 02/17/19 22:12 Last Admin: 02/17/19 22:12 Dose: 80 ml Ketamine HCl (Ketalar) Confirm Administered Dose 500 mg .ROUTE .STK-MED ONE Stop: 02/19/19 13:53 Lidocaine (Xylocaine-Mpf 2%) Confirm Administered Dose 5 ml .ROUTE .STK-MED ONE Stop: 02/19/19 12:51 Lorazepam (Ativan) 1 mg IVPUSH ONETIME ONE Stop: 02/18/19 12:08 Last Admin: 02/18/19 12:33 Dose: 1 mg Midazolam HCl (Versed 1 Mg/Ml) Confirm Administered Dose 4 mg .ROUTE .STK-MED ONE Stop: 02/19/19 12:50 Morphine Sulfate (Morphine) 2 mg IVPUSH Q2H PRN PRN Reason: Pain (severe 7-10) Last Admin: 02/18/19 08:45 Dose: 2 mg Ondansetron HCl (Zofran) Confirm Administered Dose 4 mg .ROUTE .STK-MED ONE Stop: 02/19/19 12:51 Propofol (Diprivan 20 Ml) Confirm Administered Dose 200 mg .ROUTE .STK-MED ONE Stop: 02/19/19 14:42 Propofol (Diprivan 20 Ml) Confirm Administered Dose 200 mg .ROUTE .STK-MED ONE Stop: 02/19/19 14:42 Tranexamic Acid (Cyklokapron) Confirm Administered Dose 2,000 mg .ROUTE .STK- MED ONE Stop: 02/19/19 07:11
[2019-02-20] MEDS: cefTRIAXone 1 GM in Sodium Chloride 0.9% 50 ML IV SCH ×2 (12:23→23:37)
[2019-02-20] MEDS: amLODIPine 5 MG Tab PO SCH (20:14)
[2019-02-20] MEDS: Acetaminophen 325 MG Tab PO PRN (22:18)
[2019-02-21] MEDS: oxyCODONE 5 MG Tab PO PRN ×6 (00:55→22:30)
[2019-02-21] MEDS: Albuterol/Ipratropium 3.0-0.5 MG/3 ML Neb Soln NEB SCH ×6 (02:17→21:00)
[2019-02-21] MEDS: Sodium Chloride 0.9% 1,000 ML IV SCH ×2 (02:44→12:40)
[2019-02-21] MEDS: LORazepam 0.5 MG Tab PO PRN (02:50)
[2019-02-21] MEDS: ceFAZolin 2 GM in Premix Bag 1 BAG IV SCH ×3 (05:54→22:19)
--- NOTE | 2019-02-21 07:32 | PCM.SN ---
- Free Text/Narrative Note: S: pain is better than yesterday. tolerating PO. no other issues no cp/sob. up minimal with PT O: afebrile vital signs stable, 94% on 0.5L NC right hip with swelling, but minimal distally. dressing clean/dry/intact with no drainage. normal sensation and motor distally with palpable pedal pulse. HGB 8.9 A/P: POD #2 CM nailing right hip for peritrochanteric hip fracture - rhabdomyolysis per IM - full weight bearing with walker, PT - will require SNF on discharge. - SCDs and DVT prophylaxis per primary - leave dressing on - f/u in clinic in 2 weeks.
[2019-02-21 07:55] LABS: BLOOD UREA NITROGEN,BUN 4 mg/dL (7.0-18.0); CHLORIDE,CL 101 mmol/L (98-107); GLUCOSE RANDOM 108 mg/dL (74-106); POTASSIUM,K 3.2 mmol/L (3.5-5.1); SODIUM,NA 134 mmol/L (136-145)
--- NOTE | 2019-02-21 08:07 | PCM.PN ---
- General Info Date of Service: 02/21/19 Subjective Update: pt. seen at bedside; complaining of pain mostly only during movement. states she feels better overall. No CP or SOB. Will try to work her upper body out with weights this morning. - Patient Data Vitals - Most Recent: Last Vital Signs Temp 98.5 F 02/21/19 04:00 Pulse 98 02/21/19 04:00 Resp 18 02/21/19 04:00 BP 123/59 L 02/21/19 04:00 Pulse Ox 94 L 02/21/19 04:00 Weight - Most Recent: 150 lb I&O - Last 24 Hours: Intake & Output 02/20/19 02/21/19 02/21/19 22:59 06:59 14:59 Intake Total 2450 2068 Output Total 5898 1225 Balance 500 843 Lab Results Last 24 Hours: Laboratory Results - last 24 hr 02/19/19 02/21/19 02/21/19 Range/Units 07:07 05:48 05:48 WBC 8.74 (4.0-11.0) K/uL RBC 3.10 L (4.30-5.90) M/uL Hgb 8.9 L (12.0-16.0) g/dL Hct 27.0 L (36.0-46.0) % MCV 87.1 (80.0-98.0) fL MCH 28.7 (27.0-32.0) pg MCHC 33.0 (31.0-37.0) g/dL RDW Std Deviation 44.0 (28.0-62.0) fl RDW Coeff of Peter 14 (11.0-15.0) % Plt Count 367 (150-400) K/uL MPV 9.00 (7.40-12.00) fL Neut % (Auto) 70.4 (48.0-80.0) % Lymph % (Auto) 7.7 L (16.0-40.0) % [place] % (Auto) 14.5 (0.0-15.0) % Eos % (Auto) 7.3 H (0.0-7.0) % Baso % (Auto) 0.1 (0.0-1.5) % Neut # (Auto) 6.2 H (1.4-5.7) K/uL Lymph # (Auto) 0.7 (0.6-2.4) K/uL [place] # (Auto) 1.3 H (0.0-0.8) K/uL Eos # (Auto) 0.6 (0.0-0.7) K/uL Baso # (Auto) 0.0 (0.0-0.1) K/uL Nucleated RBC % 0.0 /100WBC Nucleated RBCs # 0 K/uL Sodium 134 L (136-145) mmol/L Potassium 3.2 L (3.5-5.1) mmol/L Chloride 101 (98-107) mmol/L Carbon Dioxide 27.0 (21.0-32.0) mmol/L BUN 4 L (7.0-18.0) mg/dL Creatinine 0.5 L (0.6-1.0) mg/dL Est Cr Clr Drug Dosing 103.61 mL/min Estimated GFR (MDRD) > 60.0 ml/min Glucose 108 H (74-106) mg/dL Calcium 7.0 L (8.5-10.1) mg/dL Total Bilirubin 0.4 (0.2-1.0) mg/dL AST 32 (15-37) IU/L ALT 30 (14-63) IU/L Alkaline Phosphatase 56 (46-116) U/L Total Protein 4.9 L (6.4-8.2) g/dL Albumin 2.0 L (3.4-5.0) g/dL Globulin 2.9 (2.6-4.0) g/dL Albumin/Globulin Ratio 0.7 L (0.9-1.6) Blood Type O POSITIVE Antibody Screen NEGATIVE Crossmatch See Detail Med Orders - Current: Current Medications Acetaminophen (Tylenol) 650 mg PO Q4H PRN PRN Reason: Fever Last Admin: 02/20/19 22:18 Dose: 650 mg Albuterol/Ipratropium (Duoneb 3.0-0.5 Mg/3 Ml) 3 ml NEB Q4HRRT [place] Last Admin: 02/21/19 06:06 Dose: 3 ml Amlodipine Besylate (Norvasc) 5 mg PO BEDTIME [place] Last Admin: 02/20/19 20:14 Dose: 5 mg Sodium Chloride (Normal Saline) 1,000 mls @ 125 mls/hr IV Q8H [facility] Last Admin: 02/21/19 02:44 Dose: 125 mls/hr Ceftriaxone Sodium 1 gm/ (Sodium Chloride) 50 mls @ 100 mls/hr IV Q12H [facility] Stop: 02/25/19 10:46 Last Admin: 02/20/19 23:37 Dose: 100 mls/hr Cefazolin Sodium/Dextrose 2 gm (/ Premix) 50 mls @ 100 mls/hr IV Q8H [facility] Last Admin: 02/21/19 05:54 Dose: 100 mls/hr Lorazepam (Ativan) 0.5 mg PO BID PRN PRN Reason: ANXIETY Last Admin: 02/21/19 02:50 Dose: 0.5 mg Melatonin (Melatonin) 3 mg PO BEDTIME PRN PRN Reason: Insomnia Ondansetron HCl (Zofran Odt) 4 mg PO Q4H PRN PRN Reason: Nausea/Vomiting Oxycodone HCl (Oxycodone) 10 mg PO Q4H PRN PRN Reason: Pain Last Admin: 02/21/19 05:56 Dose: 10 mg Discontinued Medications Acetaminophen (Tylenol) 650 mg PO Q6H PRN PRN Reason: Pain Last Admin: 02/19/19 18:07 Dose: 650 mg Albuterol/Ipratropium (Duoneb 3.0-0.5 Mg/3 Ml) 3 ml NEB Q6HRRT [facility] Last Admin: 02/18/19 11:15 Dose: 3 ml Bupivacaine HCl (Marcaine 0.5%) Confirm Administered Dose 30 ml .ROUTE .STK-MED ONE Stop: 02/19/19 13:02 Cefazolin Sodium (Ancef) Confirm Administered Dose 2 gm .ROUTE .STK-MED ONE Stop: 02/19/19 13:09 Fentanyl (Sublimaze) Confirm Administered Dose 100 mcg .ROUTE .STK-MED ONE Stop: 02/19/19 12:49 Glycopyrrolate (Robinul) Confirm Administered Dose 0.2 mg .ROUTE .STK-MED ONE Stop: 02/19/19 12:51 Hydromorphone HCl (Dilaudid) 2 mg IVPUSH ONETIME ONE Stop: 02/17/19 20:57 Last Admin: 02/17/19 21:06 Dose: 2 mg Hydromorphone HCl (Dilaudid) Confirm Administered Dose 2 mg .ROUTE .STK-MED ONE Stop: 02/17/19 21:00 Last Admin: 02/17/19 22:09 Dose: Not Given Hydromorphone HCl (Dilaudid) 0.5 mg IVPUSH Q4H PRN PRN Reason: Pain Last Admin: 02/18/19 11:04 Dose: 0.5 mg Hydromorphone HCl (Dilaudid) 1 mg IVPUSH Q4H PRN PRN Reason: Pain Last Admin: 02/20/19 06:24 Dose: 1 mg Hydromorphone HCl (Dilaudid) 0.5 mg IVPUSH ONETIME ONE Stop: 02/18/19 14:27 Last Admin: 02/18/19 14:43 Dose: 0.5 mg Hydromorphone HCl (Dilaudid) 1 mg IVPUSH ONETIME ONE Stop: 02/19/19 06:38 Last Admin: 02/19/19 06:51 Dose: 1 mg Sodium Chloride (Normal Saline) 1,000 mls @ 999 mls/hr IV STAT ONE Stop: 02/17/19 23:08 Last Admin: 02/17/19 22:13 Dose: 999 mls/hr Sodium Chloride (Normal Saline) 1,000 mls @ 150 mls/hr IV ASDIRECTED [facility] Last Admin: 02/19/19 12:04 Dose: 150 mls/hr Cefazolin Sodium/Dextrose 2 gm (/ Premix) 50 mls @ 100 mls/hr IV ONETIME ONE Stop: 02/19/19 13:29 Last Admin: 02/19/19 16:31 Dose: Not Given Sodium Chloride (Normal Saline) Confirm Administered Dose 20 mls @ as directed .ROUTE .STK-MED ONE Stop: 02/19/19 13:09 Cefazolin Sodium/Dextrose 2 gm (/ Premix) 50 mls @ 100 mls/hr IV Q8H [facility] Last Admin: 02/20/19 14:12 Dose: Not Given Iopamidol (Isovue-370 (76%)) 80 ml IVPUSH ONETIME ONE Stop: 02/17/19 22:12 Last Admin: 02/17/19 22:12 Dose: 80 ml Ketamine HCl (Ketalar) Confirm Administered Dose 500 mg .ROUTE .STK-MED ONE Stop: 02/19/19 13:53 Lidocaine (Xylocaine-Mpf 2%) Confirm Administered Dose 5 ml .ROUTE .STK-MED ONE Stop: 02/19/19 12:51 Lorazepam (Ativan) 1 mg IVPUSH ONETIME ONE Stop: 02/18/19 12:08 Last Admin: 02/18/19 12:33 Dose: 1 mg Midazolam HCl (Versed 1 Mg/Ml) Confirm Administered Dose 4 mg .ROUTE .STK-MED ONE Stop: 02/19/19 12:50 Morphine Sulfate (Morphine) 2 mg IVPUSH Q2H PRN PRN Reason: Pain (severe 7-10) Last Admin: 02/18/19 08:45 Dose: 2 mg Ondansetron HCl (Zofran) Confirm Administered Dose 4 mg .ROUTE .STK-MED ONE Stop: 02/19/19 12:51 Propofol (Diprivan 20 Ml) Confirm Administered Dose 200 mg .ROUTE .STK-MED ONE Stop: 02/19/19 14:42 Propofol (Diprivan 20 Ml) Confirm Administered Dose 200 mg .ROUTE .STK-MED ONE Stop: 02/19/19 14:42 Tranexamic Acid (Cyklokapron) Confirm Administered Dose 2,000 mg .ROUTE .STK- MED ONE Stop: 02/19/19 07:11 - Exam General: Alert, Oriented, Cooperative HEENT: EOMI Neck: Supple Lungs: Normal Respiratory Effort, Wheezing (minimal ) Cardiovascular: Regular Rate, Regular Rhythm GI/Abdominal Exam: Soft, Non-Tender Extremities: Normal Capillary Refill, Other (right hip: swelling over lateral aspect : tender w/ ROM . Dressing intact . sensation intact ) Skin: Warm, Dry, Intact Psy/Mental Status: Alert, Normal Affect, Normal Mood, Anxious (improving ) - Problem List & Annotations (1) Dehydration SNOMED Code(s): 54753625 Code(s): E86.0 - DEHYDRATION Status: Acute Current Visit: Yes (2) Fracture, proximal femur SNOMED Code(s): 908103701 Code(s): S72.009A - FRACTURE OF UNSP PART OF NECK OF UNSP FEMUR, INIT Status: Acute Current Visit: Yes Qualifiers: Encounter type: initial encounter Fracture type: closed Laterality: right Qualified Code(s): S72.001A - Fracture of unspecified part of neck of right femur, initial encounter for closed fracture (3) History of COPD SNOMED Code(s): 458309439 Code(s): Z87.09 - PERSONAL HISTORY OF OTHER DISEASES OF THE RESPIRATORY SYSTEM Status: Acute Current Visit: Yes (4) Rhabdomyolysis SNOMED Code(s): 292947743 Code(s): M62.82 - RHABDOMYOLYSIS Status: Acute Current Visit: Yes Qualifiers: Rhabdomyolysis type: traumatic Encounter type: initial encounter Qualified Code(s): T79.6XXA - Traumatic ischemia of muscle, initial encounter (5) Hypertension SNOMED Code(s): 65538122 Code(s): I10 - ESSENTIAL (PRIMARY) HYPERTENSION Status: Chronic Priority : Medium Current Visit: No Qualifiers: Hypertension type: essential hypertension Qualified Code(s): I10 - Essential (primary) hypertension - Problem List Review Problem List Initiated/Reviewed/Updated: Yes - My Orders Last 24 Hours: My Active Orders 02/20/19 09:20 oxyCODONE 10 mg PO Q4H PRN 02/20/19 10:45 cefTRIAXone [Rocephin] 1 gm Sodium Chloride 0.9% [Normal Saline] 50 ml IV Q12H - Plan Plan:: assessment: 1. Right proximal femur fracture status post cephalo-medullary pinning: pod#2 2. Rhabdomyolysis:improving 3. Dehydration:resolved 4. Leukocytosis:resolved 5. Past medical history: COPD, hypertension, depression and anxiety, 6. hypokalemia: resolved/asymptomatic Plan: 1. Inpatient. Full code. Diet: heart healthy.Intake outtake routine. Vitals per routine. surgery completed. Awaiting SNF placement. DVT prophylaxis continue for additional 4-weeks. 2. right proximal femur fracture:pain controlled on oxycodone 10 mg every 4 hours for pain control. Continue Ativan for anxiety when necessary. 3. rhabdomyolysis: continue IV fluids. improving; continue to avoid nephrotoxins ; 4. Leukocytosis: we'll continue with ceftriaxone 2 g daily for 4 more additional days as empiric treatment. 5. Past medical history: continue home medications, DuoNeb nebs every 4 hours.
[2019-02-21] MEDS: cefTRIAXone 1 GM in Sodium Chloride 0.9% 50 ML IV SCH ×2 (10:18→23:34)
[2019-02-21] MEDS: Acetaminophen 325 MG Tab PO PRN (13:44)
[2019-02-21] MEDS: amLODIPine 5 MG Tab PO SCH (20:25)
[2019-02-22] MEDS: Albuterol/Ipratropium 3.0-0.5 MG/3 ML Neb Soln NEB SCH ×2 (02:30→06:03)
[2019-02-22] MEDS: oxyCODONE 5 MG Tab PO PRN ×2 (02:42→08:34)
[2019-02-22] MEDS: ceFAZolin 2 GM in Premix Bag 1 BAG IV SCH (06:05)
[2019-02-22 08:33] VITALS: BP 126/73; PULSE 98
== END 2019-02-22 09:45 | DRG 956 ==
LOC: MW.ED 20:41 → MW.MS 22:54 → OBSVTOIN 02-18 07:08
PROVIDERS: ADMIT Internal Medicine; ATTEND Internal Medicine
PROC: 0QS636Z Reposition Right Upper Femur with Intramedullary Internal Fixation Device, Percutaneous Approach (ICD-10-PCS; principal; 2019-02-19)
DX: S72.101A Unspecified trochanteric fracture of right femur, initial encounter for closed fracture (principal); T79.6XXA Traumatic ischemia of muscle, initial encounter; I10 Essential (primary) hypertension; J44.9 Chronic obstructive pulmonary disease, unspecified; H91.90 Unspecified hearing loss, unspecified ear; F41.9 Anxiety disorder, unspecified; H54.7 Unspecified visual loss; F32.9 Major depressive disorder, single episode, unspecified; Z23 Encounter for immunization; M19.90 Unspecified osteoarthritis, unspecified site; E86.0 Dehydration; D72.829 Elevated white blood cell count, unspecified; W18.30XA Fall on same level, unspecified, initial encounter; E87.6 Hypokalemia; Z79.52 Long term (current) use of systemic steroids; Z79.51 Long term (current) use of inhaled steroids; Z79.899 Other long term (current) drug therapy; Z87.01 Personal history of pneumonia (recurrent); Z98.49 Cataract extraction status, unspecified eye; Z87.891 Personal history of nicotine dependence; Y92.009 Unspecified place in unspecified non-institutional (private) residence as the place of occurrence of the external cause
CPT/HCPCS: 36415 ×2; 51702; 70450; 71045; 72125; 72193; 73030; 73501; 80053 ×2; 81001; 82550 ×2; 83735; 84484; 85025 ×2; 85610; 90471; 93005; 96361 ×2; 96374; 96375; 96376; 99285; G0378 ×2; J1170; J2270 ×3; J7040 ×2; Q9967; 01220; 76000; 94640; 97110-GP; 97162-GP; 97530-GP; A9270-GY; C1713; C1769; C1776; J0690; J0696; J2001; J2060; J2250; J2405; J2704; J3010; J3490; J7050; J7620-GY; P9016

== ENCOUNTER 2019-04-30 19:22 | Observation (INO) | payer MEDICARE, MEDICAID ==
[2019-04-30] MEDS ORDERED: Albuterol/Ipratropium 3.0-0.5 MG/3 ML Neb Soln ONE (19:28)
[2019-04-30] MEDS ORDERED: Sodium Chloride 0.9% 2.5 ML Syringe FLUSH PRN (19:46)
[2019-04-30] MEDS ORDERED: Sodium Chloride 0.9% 1,000 ML IV ONE (19:46)
[2019-04-30] MEDS ORDERED: Sodium Chloride 0.9% 10 ML Syringe FLUSH PRN (19:46)
[2019-04-30] MEDS ORDERED: Albuterol/Ipratropium 3.0-0.5 MG/3 ML Neb Soln NEB ONE (19:46)
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
--- NOTE | 2019-04-30 20:38 | CR ---
INDICATION: SOA TECHNIQUE: Chest 1 view. COMPARISON: None. FINDINGS: Cardiovascular and mediastinum: Heart size and vasculature are normal in caliber and appearance. Mediastinum is within normal limits. Lungs and pleural space: Lungs are clear. No sign of infiltrate or mass. No sign of pleural effusion. No pneumothorax. Bones and soft tissues: No significant findings. IMPRESSION: Unremarkable chest. Dictated by: Wilner Fong MD @ 04/30/2019 20:37:12 (Electronically Signed)
[2019-04-30] MEDS ORDERED: methylPREDNISolone Sodium Succinate 125 MG/2 ML SDV ONE (20:41)
[2019-04-30 20:49] LABS: BLOOD UREA NITROGEN,BUN 9 mg/dL (7.0-18.0); CARBON DIOXIDE,CO2 25.3 mmol/L (21.0-32.0); CHLORIDE,CL 96 mmol/L (98-107); GLUCOSE RANDOM 101 mg/dL (74-106); POTASSIUM,K 4.1 mmol/L (3.5-5.1); SODIUM,NA 134 mmol/L (136-145)
[2019-04-30] MEDS ORDERED: Acetaminophen/oxyCODONE 325-5 MG Tab PO ONE (21:53)
[2019-05-01] MEDS ORDERED: Acetaminophen/oxyCODONE 325-5 MG Tab PO ONE (00:12)
[2019-05-01] MEDS: amLODIPine 5 MG Tab PO SCH ×2 (00:21→09:03)
[2019-05-01 06:57] LABS: BLOOD UREA NITROGEN,BUN 7 mg/dL (7.0-18.0); CARBON DIOXIDE,CO2 24.1 mmol/L (21.0-32.0); CHLORIDE,CL 98 mmol/L (98-107); GLUCOSE RANDOM 136 mg/dL (74-106); SODIUM,NA 133 mmol/L (136-145)
[2019-05-01] MEDS: Acetaminophen/oxyCODONE 325-5 MG Tab PO PRN ×2 (07:02→22:09)
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
[2019-05-01] MEDS ORDERED: methylPREDNISolone Sodium Succinate 125 MG/2 ML SDV IVPUSH SCH (09:00)
[2019-05-01] MEDS ORDERED: methylPREDNISolone Sodium Succinate 40 MG/1 ML SDV IVPUSH SCH (09:00)
[2019-05-01] MEDS ORDERED: LORazepam 0.5 MG Tab PO PRN (11:46)
[2019-05-01] MEDS: Sertraline 50 MG Tab PO SCH (12:39)
[2019-05-01] MEDS ORDERED: Erythromycin Base 0.5% Ophth Oint 1 GM Tube EYEBOTH SCH (21:00)
[2019-05-01] MEDS ORDERED: amLODIPine 5 MG Tab PO SCH (21:00)
[2019-05-01] MEDS ORDERED: Montelukast 10 MG Tab PO SCH (21:00)
[2019-05-01] MEDS ORDERED: LORazepam 0.5 MG Tab PO SCH (21:00)
[2019-05-01] MEDS: Albuterol/Ipratropium 3.0-0.5 MG/3 ML Neb Soln NEB PRN (21:53)
[2019-05-01] MEDS: Budesonide 0.5 MG/2 ML Neb Susp INH SCH (21:53)
[2019-05-01] MEDS: FORMOTEROL INH SCH (22:17)
[2019-05-01] MEDS: GLYCOPYRROLATE INH SCH (22:17)
[2019-05-02 05:57] LABS: BLOOD UREA NITROGEN,BUN 12 mg/dL (7.0-18.0); CARBON DIOXIDE,CO2 25.2 mmol/L (21.0-32.0); CHLORIDE,CL 99 mmol/L (98-107); GLUCOSE RANDOM 115 mg/dL (74-106); SODIUM,NA 135 mmol/L (136-145)
[2019-05-02] MEDS ORDERED: predniSONE 20 MG Tab PO SCH (08:00)
[2019-05-02] MEDS ORDERED: Potassium Chloride 20 MEQ Tab.ER PO ONE (08:05)
[2019-05-02] MEDS: Sertraline 50 MG Tab PO SCH (08:58)
[2019-05-02] MEDS: Acetaminophen/oxyCODONE 325-5 MG Tab PO PRN (09:06)
[2019-05-02] MEDS: GLYCOPYRROLATE INH SCH (09:07)
[2019-05-02] MEDS: FORMOTEROL INH SCH (09:07)
[2019-05-02] MEDS: Albuterol/Ipratropium 3.0-0.5 MG/3 ML Neb Soln NEB PRN (10:19)
[2019-05-02] MEDS: Budesonide 0.5 MG/2 ML Neb Susp INH SCH (10:19)
--- NOTE | 2019-05-02 14:16 | PCM.DCSUM1 ---
Discharge Summary - Hospital Course Brief History: This 69 year old female with pmh of COPD, chronis steroid dependent, recent R hip fracture from fall, and anxiety presented to the ED last night for shortness of breath and wheezing. She was released from [facility] today, she was in [facility] for rehabilitation after Hip fracture in early February. She reports she has felt congested for 3 days and yesterday got very short of breath at home and came to be evaluated. She denies fevers or chills. Sputum has not changed. She has a cough, but it is non-productive. She reports she has been using oxygen intermittently at [facility] for shortness of breath. She is without oxygen currently at home. She denies smoking now, but has history of long time use. She denies chest pain or abdominal pain. Hip has mild pain but otherwise is feeling somewhta improved from arrival to ED. In the ED mild leukocytosis noted, 11,080. Troponin negative UA negative. BMP negative. She was given Solumedrol in the ED along with nebs. She will be admitted for COPD exacerbation Diagnosis: Stroke: No - Discharge Data Discharge Date: 05/02/19 Discharge Disposition: Home, Self-Care 01 Condition: Stable - Referral to Home Health Primary Care Physician: PCP None - Discharge Diagnosis/Problem(s) (1) COPD (chronic obstructive pulmonary disease) SNOMED Code(s): 97115137 ICD Code: J44.9 - CHRONIC OBSTRUCTIVE PULMONARY DISEASE, UNSPECIFIED Status : Acute Current Visit: Yes Qualifiers: COPD type: chronic bronchitis Chronic bronchitis type: simple Qualified Code(s): J41.0 - Simple chronic bronchitis (2) Anxiety SNOMED Code(s): 20059817 ICD Code: F41.9 - ANXIETY DISORDER, UNSPECIFIED Status: Chronic Current Visit: Yes (3) Hypertension SNOMED Code(s): 88049197 ICD Code: I10 - ESSENTIAL (PRIMARY) HYPERTENSION Status: Chronic Priority : Medium Current Visit: No Qualifiers: Hypertension type: essential hypertension Qualified Code(s): I10 - Essential (primary) hypertension - Patient Instructions Diet: Heart Healthy Diet Activity: As Tolerated Driving: Do Not Drive Notify Provider of: Fever, Increased Pain, Swelling and Redness, Drainage, Nausea and/or Vomiting - Discharge Plan *PRESCRIPTION DRUG MONITORING PROGRAM REVIEWED*: Not Applicable *COPY OF PRESCRIPTION DRUG MONITORING REPORT IN PATIENT GLORIA: Not Applicable Prescriptions/Med Rec: predniSONE 40 mg PO WITHBREAKFAST #8 tablet Home Medications: Home Meds LORazepam 0.5 mg PO BID PRN 03/15/15 [History] Montelukast Sodium 10 mg PO BEDTIME 12/18/16 [History] Albuterol [Ventolin HFA] 2 puff IH QID PRN 02/18/19 [History] Budesonide [Pulmicort] 2 puff IH BID 02/18/19 [History] Glycopyrrolate/Formoterol Fum [Bevespi Aerosphere Inhaler] 2 puff IH BID [History] amLODIPine Besylate [Amlodipine Besylate] 5 mg PO BEDTIME 02/18/19 [History] predniSONE 5 mg PO DAILY 02/18/19 [History] Acetaminophen [Tylenol] 650 mg PO Q4H PRN tablet 02/21/19 [Rx] Erythromycin Base [Erythromycin 0.5% Ophth Oint] 1 applic EYEBOTH BEDTIME [History] Sertraline [Zoloft] 100 mg PO DAILY 05/01/19 [History] oxyCODONE HCl/Acetaminophen [Percocet 5-325 mg Tablet] 1 each PO Q8H PRN [History] traMADol [Ultram] 50 mg PO Q6H PRN 05/01/19 [History] predniSONE 40 mg PO WITHBREAKFAST #8 tablet 05/02/19 [Rx] Oxygen Therapy Mode: Nasal Cannula Oxygen Flow Rate (L/min): 1 (with activity) Referrals: Tila Maddox NP [Ordering Only Provider] - 05/09/19 1:45 pm Jeri Simeon MD [Physician] - 06/10/19 10:00 am - Discharge Summary/Plan Comment DC Time >30 min.: No Discharge Summary/Plan Comment: Admitting Diagnoses: COPD exacerbation Anxiety Home oxygen dependent Discharge Diagnoses: COPD exacerbation Home oxygen other PH: Recent R hip fracture Susana was admitted for mild COPD exacerbation. She was discharged from [facility] and less than 24 hours later admitted due to shortness of breath and wheezing. She reports she was discharged and went home and started feeling short of breath and couldn't sleep well. She reports prior to hip fracture and admission to [facility] for rehab, she was on home oxygen. She had oxygen at [facility] intermittently and then when she went home she had nothing. She was treated here with steroid burst and oxygen. She was evaluated for home oxygen and was noted to be sating 93% on RA at rest. With activity she was noted to dip to 87- 88% and had shortness of breath. She was placed on 4 L NC and sats improved to 94% with activity. She will be discharged home with 1 l NC with activity. This is likely baseline as she was previously on oxygen at home, but this was not continued upon discharge from SNF. She will be continued on short burst of Prednisone, then she is to resume daily prednisone. Due to recent hip fracture, she needs to be evaluated by Pulmonology for continued need for chronic steroids and should have bone density scan, if she hasn't recently. She is stop taking Eliquis, as this was started post-operatively for hip, and continued only for 4 weeks. She is to return to ED or clinic if concerns should arise. - Patient Data Vitals - Most Recent: Last Vital Signs Temp 98.7 F 05/02/19 09:00 Pulse 64 05/02/19 09:00 Resp 18 05/02/19 09:00 BP 131/64 05/02/19 09:00 Pulse Ox 96 05/02/19 09:00 Weight - Most Recent: 55.565 kg I&O - Last 24 hours: Intake & Output 05/01/19 05/02/19 05/02/19 22:59 06:59 14:59 Intake Total 480 490 Output Total 1500 600 Balance -1020 -110 Lab Results - Last 24 hrs: Laboratory Results - last 24 hr 05/01/19 05/02/19 05/02/19 Range/Units 17:24 04:53 04:53 WBC 14.50 H (4.0-11.0) K/uL RBC 4.42 (4.30-5.90) M/uL Hgb 12.2 (12.0-16.0) g/dL Hct 36.7 (36.0-46.0) % MCV 83.0 (80.0-98.0) fL MCH 27.6 (27.0-32.0) pg MCHC 33.2 (31.0-37.0) g/dL RDW Std Deviation 47.9 (28.0-62.0) fl RDW Coeff of Peter 16 H (11.0-15.0) % Plt Count 489 H (150-400) K/uL MPV 9.10 (7.40-12.00) fL Neut % (Auto) 77.1 (48.0-80.0) % Lymph % (Auto) 11.7 L (16.0-40.0) % Thurston % (Auto) 10.9 (0.0-15.0) % Eos % (Auto) 0.2 (0.0-7.0) % Baso % (Auto) 0.1 (0.0-1.5) % Neut # (Auto) 11.2 H (1.4-5.7) K/uL Lymph # (Auto) 1.7 (0.6-2.4) K/uL Thurston # (Auto) 1.6 H (0.0-0.8) K/uL Eos # (Auto) 0.0 (0.0-0.7) K/uL Baso # (Auto) 0.0 (0.0-0.1) K/uL Nucleated RBC % 0.0 /100WBC Nucleated RBCs # 0 K/uL Sodium 135 L (136-145) mmol/L Potassium 3.0 L (3.5-5.1) mmol/L Chloride 99 (98-107) mmol/L Carbon Dioxide 25.2 (21.0-32.0) mmol/L BUN 12 (7.0-18.0) mg/dL Creatinine 0.8 (0.6-1.0) mg/dL Est Cr Clr Drug Dosing 59.86 mL/min Estimated GFR (MDRD) > 60.0 ml/min Glucose 115 H (74-106) mg/dL POC Glucose 132 H (60-110) mg/dL Calcium 9.0 (8.5-10.1) mg/dL FELIZ Results - Last 24 hrs: Microbiology 04/30/19 21:57 Urine Culture - Final Urine, Clean Catch MIXED ELIGIO >100,000 CFU/ML 04/30/19 20:40 Aerobic Blood Culture - Preliminary Blood - Venous - Lab Draw NO GROWTH AFTER 1 DAY Anaerobic Blood Culture - Preliminary NO GROWTH AFTER 1 DAY 04/30/19 20:00 Aerobic Blood Culture - Preliminary Blood - Venous NO GROWTH AFTER 1 DAY Anaerobic Blood Culture - Preliminary NO GROWTH AFTER 1 DAY Med Orders - Current: Current Medications Albuterol/Ipratropium (Duoneb 3.0-0.5 Mg/3 Ml) 3 ml NEB Q4HRRT PRN PRN Reason: Shortness Of Breath/wheezing Last Admin: 05/02/19 10:19 Dose: 3 ml Amlodipine Besylate (Norvasc) 5 mg PO BEDTIME [facility] Last Admin: 05/01/19 22:15 Dose: 5 mg Budesonide (Pulmicort) 0.5 mg INH BID [facility] Last Admin: 05/02/19 10:19 Dose: 0.5 mg Erythromycin (Erythromycin 0.5% Ophth Oint) 0 gm EYEBOTH BEDTIME [facility] Last Admin: 05/01/19 23:04 Dose: 0.5 inch Lorazepam (Ativan) 0.5 mg PO BID PRN PRN Reason: Anxiety Last Admin: 05/01/19 12:38 Dose: 0.5 mg Montelukast Sodium (Singulair) 10 mg PO BEDTIME [facility] Last Admin: 05/01/19 22:09 Dose: 10 mg Oxycodone/Acetaminophen (Percocet 325-5 Mg) 1 tab PO Q8H PRN PRN Reason: Pain Last Admin: 05/02/19 09:06 Dose: 1 tab Glycopyrrolate/Formoterol [Bevespi Aerosphere Inhaler] 2 each INH BID [facility] Last Admin: 05/02/19 09:07 Dose: Not Given Prednisone (Prednisone) 40 mg PO WITHBREAKFAST [facility] Last Admin: 05/02/19 08:58 Dose: 40 mg Sertraline HCl (Zoloft) 100 mg PO DAILY [facility] Last Admin: 05/02/19 08:58 Dose: 100 mg Sodium Chloride (Saline Flush) 10 ml FLUSH ASDIRECTED PRN PRN Reason: Keep Vein Open Last Admin: 04/30/19 20:52 Dose: 10 ml Sodium Chloride (Saline Flush) 2.5 ml FLUSH ASDIRECTED PRN PRN Reason: Keep Vein Open Last Admin: 04/30/19 20:52 Dose: 2.5 ml Discontinued Medications Albuterol/Ipratropium (Duoneb 3.0-0.5 Mg/3 Ml) Confirm Administered Dose 3 ml .ROUTE .STK-MED ONE Stop: 04/30/19 19:29 Last Admin: 04/30/19 22:22 Dose: Not Given Albuterol/Ipratropium (Duoneb 3.0-0.5 Mg/3 Ml) 3 ml NEB ONETIME ONE Stop: 04/30/19 19:47 Last Admin: 04/30/19 20:52 Dose: 3 ml Amlodipine Besylate (Norvasc) 10 mg PO DAILY [facility] Last Admin: 05/01/19 09:03 Dose: 10 mg Sodium Chloride (Normal Saline) 1,000 mls @ 999 mls/hr IV BOLUS ONE Stop: 04/30/19 20:46 Last Admin: 04/30/19 20:00 Dose: 999 mls/hr Lorazepam (Ativan) 0.5 mg PO BEDTIME [facility] Methylprednisolone Sodium Succinate (Solu-Medrol) 125 mg IVPUSH DAILY [facility] Last Admin: 04/30/19 20:51 Dose: 125 mg Methylprednisolone Sodium Succinate (Solu-Medrol) Confirm Administered Dose 125 mg .ROUTE .STK-MED ONE Stop: 04/30/19 20:42 Last Admin: 04/30/19 22:22 Dose: Not Given Methylprednisolone Sodium Succinate (Solu-Medrol) 40 mg IVPUSH Q8H [facility] Last Admin: 05/01/19 09:03 Dose: 40 mg Oxycodone/Acetaminophen (Percocet 325-5 Mg) 1 tab PO ONETIME ONE Stop: 04/30/19 21:54 Last Admin: 04/30/19 22:21 Dose: 1 tab Oxycodone/Acetaminophen (Percocet 325-5 Mg) 1 tab PO ONETIME ONE Stop: 05/01/19 00:13 Last Admin: 05/01/19 00:15 Dose: Not Given Potassium Chloride (Klor-Con M20) 40 meq PO ONETIME ONE Stop: 05/02/19 08:06 Last Admin: 05/02/19 08:58 Dose: 40 meq
[2019-05-02 14:58] VITALS: BP 116/60; PULSE 78
== END 2019-05-02 17:45 | disposition home or self-care (01) ==
LOC: MW.ED 19:22 → MW.MS 22:12
PROVIDERS: ADMIT Student in an Organized Health Care Education/Training Program; ATTEND Student in an Organized Health Care Education/Training Program
DX: J44.1 Chronic obstructive pulmonary disease with (acute) exacerbation (principal); I10 Essential (primary) hypertension; S72.001D Fracture of unspecified part of neck of right femur, subsequent encounter for closed fracture with routine healing; M19.90 Unspecified osteoarthritis, unspecified site; F41.9 Anxiety disorder, unspecified; F32.9 Major depressive disorder, single episode, unspecified; Z79.899 Other long term (current) drug therapy; Z79.52 Long term (current) use of systemic steroids; Z99.81 Dependence on supplemental oxygen; Z87.891 Personal history of nicotine dependence
CPT/HCPCS: 36415; 71045; 80048; 80053; 81001; 82962; 83735; 83880; 84100; 84484; 85025; 85610; 87040; 87086; 93005; 94640; 96360; 99285; A9270; J2920; J2930; J7040; 96361; 96374; 96376; 99283; G0378; J7030; J7620-GY

== ENCOUNTER 2019-05-07 19:23 | Emergency (ER) | payer MEDICARE, MEDICAID ==
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
[2019-05-07 20:00] VITALS: BP 106/57; PULSE 88
== END 2019-05-07 20:01 | disposition home or self-care (01) ==
LOC: MW.ED 19:23
DX: M54.9 Dorsalgia, unspecified (principal); G89.29 Other chronic pain; J44.9 Chronic obstructive pulmonary disease, unspecified; I10 Essential (primary) hypertension; M19.90 Unspecified osteoarthritis, unspecified site; F41.9 Anxiety disorder, unspecified; F32.9 Major depressive disorder, single episode, unspecified; Z79.899 Other long term (current) drug therapy
CPT/HCPCS: 99282; 99283

== ENCOUNTER 2019-05-08 10:36 | Emergency (ER) | payer MEDICARE, MEDICAID ==
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
[2019-05-08 10:48] VITALS: BP 134/83; PULSE 107
[2019-05-08] MEDS ORDERED: Ketorolac 60 MG/2 ML SDV IM ONE (10:48)
== END 2019-05-08 11:39 | disposition home or self-care (01) ==
LOC: MW.ED 10:36
DX: G89.29 Other chronic pain (principal); M54.5 Low back pain; I10 Essential (primary) hypertension; J44.9 Chronic obstructive pulmonary disease, unspecified; F41.9 Anxiety disorder, unspecified; F32.9 Major depressive disorder, single episode, unspecified; Z79.899 Other long term (current) drug therapy
CPT/HCPCS: 96372; 99283; J1885; J2360

== ENCOUNTER 2019-09-16 12:17 | Observation (INO) | payer MEDICARE, MEDICAID, OTHER ==
[2019-09-16] MEDS ORDERED: methylPREDNISolone Sodium Succinate 125 MG/2 ML SDV IVPUSH ONE (12:40)
[2019-09-16] MEDS ORDERED: Sodium Chloride 0.9% 1,000 ML IV ONE (12:41)
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
[2019-09-16] MEDS ORDERED: Albuterol/Ipratropium 3.0-0.5 MG/3 ML Neb Soln NEB ONE ×2 (12:54→16:29)
[2019-09-16 13:02] LABS: BLOOD UREA NITROGEN,BUN 14 mg/dL (7.0-18.0); CARBON DIOXIDE,CO2 26.7 mmol/L (21.0-32.0); CHLORIDE,CL 96 mmol/L (98-107); GLUCOSE RANDOM 113 mg/dL (74-106); POTASSIUM,K 4.5 mmol/L (3.5-5.1); SODIUM,NA 132 mmol/L (136-145)
--- NOTE | 2019-09-16 13:58 | CR ---
Chest: Portable view of the chest was obtained. Comparison: No prior chest x-ray. Heart size and mediastinum are within normal limits. Lungs are clear with no acute parenchymal change. Bony structures are grossly intact. Impression: 1. Nothing acute is seen on portable chest x-ray. Diagnostic code #1 Study was dictated in MDT
[2019-09-16] MEDS ORDERED: Iopamidol 755 MG/ML 500 ML Multipack Bottle IVPUSH STA (15:21)
--- NOTE | 2019-09-16 15:36 | CT ---
CT chest Technique: Multiple axial sections of the chest were obtained. Study has been performed as a pulmonary angiogram protocol. Intravenous contrast was therefore utilized. Findings: Pulmonary arteries are fairly well-opacified. No filling defects are seen to indicate pulmonary embolism. Aorta shows atherosclerotic calcification without aneurysm. Small mediastinal lymph nodes are seen which are believed to be within normal limits. No axillary adenopathy is identified. Mild emphysematous change is noted throughout the lungs. Lungs show no acute parenchymal change. Bone window settings were reviewed which shows no acute osseous finding. Slight degenerative change is noted within the spine. Impression: 1. Emphysematous change. 2. Other findings believed to be incidental. 3. No evidence of pulmonary embolism. Diagnostic code #2 Study was dictated in MDT
[2019-09-16] MEDS ORDERED: LORazepam 2 MG/ML SDV IVPUSH ONE (16:08)
[2019-09-16] MEDS ORDERED: Albuterol 8 GM Inhaler INH PRN (21:56)
[2019-09-16] MEDS ORDERED: Acetaminophen 325 MG Tab PO PRN (21:56)
[2019-09-16] MEDS ORDERED: Albuterol HFA 18 Gm Inhaler INH PRN (21:56)
[2019-09-16] MEDS ORDERED: Benzonatate 100 MG Cap PO PRN (21:57)
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
[2019-09-16] MEDS ORDERED: LORazepam 0.5 MG Tab PO PRN (22:15)
[2019-09-17 07:07] LABS: BLOOD UREA NITROGEN,BUN 11 mg/dL (7.0-18.0); CARBON DIOXIDE,CO2 27.3 mmol/L (21.0-32.0); CHLORIDE,CL 100 mmol/L (98-107); GLUCOSE RANDOM 135 mg/dL (74-106); POTASSIUM,K 4.5 mmol/L (3.5-5.1); SODIUM,NA 134 mmol/L (136-145)
[2019-09-17] MEDS ORDERED: Albuterol 8 GM Inhaler INH PRN (07:55)
[2019-09-17] MEDS: Montelukast 10 MG Tab PO SCH (09:18)
[2019-09-17] MEDS: Sertraline 50 MG Tab PO SCH (09:20)
[2019-09-17] MEDS ORDERED: Fluticasone/Umeclidin/Vilanter 1 PUFF INH SCH (09:45)
[2019-09-17] MEDS: methylPREDNISolone Sodium Succinate 125 MG/2 ML SDV IV SCH (10:08)
--- NOTE | 2019-09-17 10:59 | PCM.PN ---
Addendum entered and electronically signed by Quincy Reeder MD 09/17/19 11: 14: Patient requested palliative consult for her end-stage COPD. Original Note: - General Info Date of Service: 09/17/19 Subjective Update: Reports that she is still coughing a lot and feeling SOB. No fevers or chills overnight. - Patient Data Vitals - Most Recent: Last Vital Signs Temp 98.3 F 09/17/19 07:15 Pulse 79 09/17/19 07:15 Resp 18 09/17/19 07:15 BP 164/67 H 09/17/19 07:15 Pulse Ox 95 09/17/19 07:15 Weight - Most Recent: 141 lb 1.533 oz I&O - Last 24 Hours: Intake & Output 09/16/19 09/17/19 09/17/19 22:59 06:59 14:59 Intake Total 780 Output Total 900 Balance -120 Lab Results Last 24 Hours: Laboratory Results - last 24 hr 09/16/19 09/16/19 09/16/19 Range/Units 12:30 12:30 12:30 WBC 7.09 (4.0-11.0) K/uL RBC 5.00 (4.30-5.90) M/uL Hgb 14.1 (12.0-16.0) g/dL Hct 42.7 (36.0-46.0) % MCV 85.4 (80.0-98.0) fL MCH 28.2 (27.0-32.0) pg MCHC 33.0 (31.0-37.0) g/dL RDW Std Deviation 46.4 (28.0-62.0) fl RDW Coeff of Peter 15 (11.0-15.0) % Plt Count 525 H (150-400) K/uL MPV 8.50 (7.40-12.00) fL Neut % (Auto) 68.0 (48.0-80.0) % Lymph % (Auto) 14.0 L (16.0-40.0) % [place] % (Auto) 8.0 (0.0-15.0) % Eos % (Auto) 9.4 H (0.0-7.0) % Baso % (Auto) 0.6 (0.0-1.5) % Neut # (Auto) 4.8 (1.4-5.7) K/uL Lymph # (Auto) 1.0 (0.6-2.4) K/uL [place] # (Auto) 0.6 (0.0-0.8) K/uL Eos # (Auto) 0.7 (0.0-0.7) K/uL Baso # (Auto) 0.0 (0.0-0.1) K/uL Nucleated RBC % 0.0 /100WBC Nucleated RBCs # 0 K/uL Sodium 132 L (136-145) mmol/L Potassium 4.5 (3.5-5.1) mmol/L Chloride 96 L (98-107) mmol/L Carbon Dioxide 26.7 (21.0-32.0) mmol/L BUN 14 (7.0-18.0) mg/dL Creatinine 0.7 (0.6-1.0) mg/dL Est Cr Clr Drug Dosing 70.18 mL/min Estimated GFR (MDRD) > 60.0 ml/min Glucose 113 H (74-106) mg/dL Calcium 9.3 (8.5-10.1) mg/dL Total Bilirubin 0.4 (0.2-1.0) mg/dL AST 22 (15-37) IU/L ALT 28 (14-63) IU/L Alkaline Phosphatase 93 (46-116) U/L Troponin I < 0.050 (0.000-0.056) ng/mL Total Protein 8.2 (6.4-8.2) g/dL Albumin 4.1 (3.4-5.0) g/dL Globulin 4.1 H (2.6-4.0) g/dL Albumin/Globulin Ratio 1.0 (0.9-1.6) 09/17/19 09/17/19 Range/Units 06:05 06:05 WBC 6.81 (4.0-11.0) K/uL RBC 4.46 (4.30-5.90) M/uL Hgb 12.4 (12.0-16.0) g/dL Hct 38.1 (36.0-46.0) % MCV 85.4 (80.0-98.0) fL MCH 27.8 (27.0-32.0) pg MCHC 32.5 (31.0-37.0) g/dL RDW Std Deviation 45.7 (28.0-62.0) fl RDW Coeff of Peter 15 (11.0-15.0) % Plt Count 455 H (150-400) K/uL MPV 8.60 (7.40-12.00) fL Neut % (Auto) 83.4 H (48.0-80.0) % Lymph % (Auto) 10.4 L (16.0-40.0) % [place] % (Auto) 6.2 (0.0-15.0) % Eos % (Auto) 0.0 (0.0-7.0) % Baso % (Auto) 0.0 (0.0-1.5) % Neut # (Auto) 5.7 (1.4-5.7) K/uL Lymph # (Auto) 0.7 (0.6-2.4) K/uL [place] # (Auto) 0.4 (0.0-0.8) K/uL Eos # (Auto) 0.0 (0.0-0.7) K/uL Baso # (Auto) 0.0 (0.0-0.1) K/uL Nucleated RBC % 0.0 /100WBC Nucleated RBCs # 0 K/uL Sodium 134 L (136-145) mmol/L Potassium 4.5 (3.5-5.1) mmol/L Chloride 100 (98-107) mmol/L Carbon Dioxide 27.3 (21.0-32.0) mmol/L BUN 11 (7.0-18.0) mg/dL Creatinine 0.7 (0.6-1.0) mg/dL Est Cr Clr Drug Dosing 73.01 mL/min Estimated GFR (MDRD) > 60.0 ml/min Glucose 135 H (74-106) mg/dL Calcium 8.7 (8.5-10.1) mg/dL Total Bilirubin (0.2-1.0) mg/dL AST (15-37) IU/L ALT (14-63) IU/L Alkaline Phosphatase (46-116) U/L Troponin I (0.000-0.056) ng/mL Total Protein (6.4-8.2) g/dL Albumin (3.4-5.0) g/dL Globulin (2.6-4.0) g/dL Albumin/Globulin Ratio (0.9-1.6) Vance Results Last 24 Hours: Microbiology 09/16/19 14:30 Influenza Type A Antigen Screen - Final Nasopharyngeal Swab NEGATIVE INFLUENZA A VIRUS AG REFERENCE RANGE: NEGATIVE Influenza Type B Antigen Screen - Final NEGATIVE INFLUENZA B VIRUS AG REFERENCE RANGE: NEGATIVE Med Orders - Current: Current Medications Acetaminophen (Tylenol) 650 mg PO Q4H PRN PRN Reason: Fever Albuterol (Ventolin Hfa) 0 gm INH Q6HRRT [facility] Amlodipine Besylate (Norvasc) 5 mg PO BEDTIME [facility] Benzonatate (Tessalon Perles) 100 mg PO TID PRN PRN Reason: Cough Last Admin: 09/16/19 22:25 Dose: 100 mg Lorazepam (Ativan) 0.5 mg PO BID PRN PRN Reason: ANXIETY Methylprednisolone Sodium Succinate (Solu-Medrol) 125 mg IV DAILY [facility] Last Admin: 09/17/19 10:08 Dose: 125 mg Montelukast Sodium (Singulair) 10 mg PO DAILY [facility] Last Admin: 09/17/19 09:18 Dose: 10 mg Umeclidinium Brm/Vilanterol Tr [Anoro Ellipta 62.5-25 Mcg ] 1 each INH DAILY [facility] Last Admin: 09/17/19 09:21 Dose: Not Given Fluticasone/Umeclidin/Vilanter 1 Puff 0 each INH DAILY [facility] Last Admin: 09/17/19 10:02 Dose: 1 each Sertraline HCl (Zoloft) 100 mg PO DAILY [facility] Last Admin: 09/17/19 09:20 Dose: Not Given Discontinued Medications Albuterol (Ventolin Hfa) 0 gm INH QID PRN PRN Reason: Wheezing Albuterol (Ventolin Hfa) 0 gm INH Q4H PRN PRN Reason: Shortness of Breath Albuterol (Ventolin Hfa) 0 gm INH Q4H PRN PRN Reason: Shortness of Breath Albuterol/Ipratropium (Duoneb 3.0-0.5 Mg/3 Ml) 3 ml NEB ONETIME ONE Stop: 09/16/19 12:55 Last Admin: 09/16/19 12:58 Dose: 3 ml Albuterol/Ipratropium (Duoneb 3.0-0.5 Mg/3 Ml) 3 ml NEB ONETIME ONE Stop: 09/16/19 16:30 Last Admin: 09/16/19 16:48 Dose: 3 ml Sodium Chloride (Normal Saline) 1,000 mls @ 999 mls/hr IV STAT ONE Stop: 09/16/19 13:41 Last Admin: 09/16/19 12:55 Dose: 999 mls/hr Iopamidol (Isovue Multipack-370 (76%)) 50 ml IVPUSH ONETIME STA Stop: 09/16/19 15:22 Last Admin: 09/16/19 15:22 Dose: 50 ml Lorazepam (Ativan) 0.5 mg IVPUSH ONETIME ONE Stop: 09/16/19 16:09 Last Admin: 09/16/19 16:16 Dose: 0.5 mg Methylprednisolone Sodium Succinate (Solu-Medrol) 125 mg IVPUSH ONETIME ONE Stop: 09/16/19 12:41 Last Admin: 09/16/19 12:55 Dose: 125 mg - Exam General: Alert, Oriented, Cooperative, No Acute Distress Lungs: Other (wheezes and coarse breath sounds b/l) Cardiovascular: Regular Rate, Regular Rhythm GI/Abdominal Exam: Normal Bowel Sounds, Soft, Non-Tender, No Distention Extremities: Normal Inspection, No Pedal Edema Sepsis Event Note - Evaluation Sepsis Screening Result: No Definite Risk - Focused Exam Vital Signs: Vital Signs Temp Pulse Resp BP Pulse Ox 09/17/19 07:15 98.3 F 79 18 164/67 H 95 09/17/19 05:00 96.8 F L 79 19 134/69 94 L 09/17/19 00:09 98.0 F 83 18 121/61 96 Date Exam was Performed: 09/17/19 Time Exam was Performed: 10:55 - Problem List Review Problem List Initiated/Reviewed/Updated: Yes - My Orders Last 24 Hours: My Active Orders 09/18/19 05:11 CBC WITH AUTO DIFF [HEME] AM CMP [COMPREHENSIVE METABOLIC PN,CMP] [CHEM] AM - Plan Plan:: Assessment and Plan: 1. Acute hypoxic respiratory failure secondary to COPD exacerbation: - Will continue supplemental oxygen as needed, IV solumedrol 125 mg qd, albuterol INH q6 and montelukast [address] angio unremarkable. Influenza test negative. COVID19 test pending. 2. Past medical history of HTN, anxiety and depression: - Resume home medications. 3. DVT prophylaxis: SCD's.
[2019-09-17] MEDS ORDERED: Albuterol 8 GM Inhaler INH SCH (12:00)
[2019-09-17] MEDS: Albuterol 8 GM Inhaler INH SCH ×2 (18:51→23:56)
[2019-09-17] MEDS ORDERED: amLODIPine 5 MG Tab PO SCH (21:00)
[2019-09-18] MEDS: Albuterol 8 GM Inhaler INH SCH ×2 (05:57→12:07)
[2019-09-18 06:29] LABS: BLOOD UREA NITROGEN,BUN 17 mg/dL (7.0-18.0); CARBON DIOXIDE,CO2 28.4 mmol/L (21.0-32.0); CHLORIDE,CL 99 mmol/L (98-107); GLUCOSE RANDOM 134 mg/dL (74-106); SODIUM,NA 136 mmol/L (136-145)
[2019-09-18 07:42] VITALS: BP 139/76; PULSE 67
[2019-09-18] MEDS ORDERED: Fluticasone/Umeclidin/Vilanter [Trelegy Ellipta 100-62.5-25 Mcg] INH SCH (09:00)
[2019-09-18] MEDS: methylPREDNISolone Sodium Succinate 125 MG/2 ML SDV IV SCH (09:07)
[2019-09-18] MEDS: Sertraline 50 MG Tab PO SCH (09:07)
[2019-09-18] MEDS: Montelukast 10 MG Tab PO SCH (09:07)
--- NOTE | 2019-09-18 10:52 | PCM.DCSUM1 ---
<Quincy Reeder M - Last Filed: 09/18/19 14:46> Discharge Summary - Hospital Course Free Text/Narrative:: 69-year-old female admitted for acute hypoxic respiratory failure secondary to COPD exacerbation. She has a PMH of HTN, anxiety and depression. Patient treated with supplemental oxygen, IV solumedrol and albuterol INH treatments. CXR and CT angio on admission were negative. Influenza test negative. COVID19 test pending at time of discharge. Patient reported significant improvement in her breathing on day of discharge. Patient advised to self-quarantine herself at home pending COVID19 test results. Patient discharged on prednisone 40 mg qd for 5 days and then instructed to her regular home prednisone dose. Patient also requested palliative medicine consult during hospitalization. Per palliative team, they will follow-up with patient on discharge. Advised to follow-up with PCP. Resume home health on discharge. - Discharge Data Discharge Date: 09/18/19 Discharge Disposition: Home, Self-Care 01 Condition: Stable - Referral to Home Health Primary Care Physician: PCP None - Patient Summary/Data Consults: Consultations 09/17/19 09:52 Consult to Home Health [CONS] Routine - Patient Instructions Diet: Usual Diet as Tolerated Activity: As Tolerated Notify Provider of: Fever, Increased Pain, Swelling and Redness, Drainage, Nausea and/or Vomiting - Discharge Plan *PRESCRIPTION DRUG MONITORING PROGRAM REVIEWED*: Not Applicable *COPY OF PRESCRIPTION DRUG MONITORING REPORT IN PATIENT GLORIA: Not Applicable Prescriptions/Med Rec: predniSONE [Prednisone] 40 mg PO DAILY 5 Days #10 tablet Home Medications: Home Meds LORazepam 0.5 mg PO BID PRN 03/15/15 [History] Albuterol [Ventolin HFA] 2 puff IH QID PRN 02/18/19 [History] amLODIPine Besylate [Amlodipine Besylate] 5 mg PO BEDTIME 02/18/19 [History] predniSONE 5 mg PO DAILY 02/18/19 [History] Acetaminophen [Tylenol] 650 mg PO Q4H PRN tablet 02/21/19 [Rx] Sertraline [Zoloft] 100 mg PO DAILY 05/01/19 [History] Albuterol [Ventolin HFA] 2 puff INH Q4H PRN 09/16/19 [History] Calcium Citrate 1,200 mg PO BID 09/16/19 [History] Cholecalciferol (Vitamin D3) [Vitamin D3] 50 mcg PO DAILY 09/16/19 [History] Cyclobenzaprine HCl 5 mg PO ASDIRECTED PRN 09/16/19 [History] Docusate Sodium 100 mg PO BID 09/16/19 [History] Meclizine HCl 25 mg PO TID PRN 09/16/19 [History] Montelukast [Singulair] 10 mg PO DAILY 09/16/19 [History] Multivitamin [Daily Multiple Vitamin] 1 each PO DAILY 09/16/19 [History] Umeclidinium Brm/Vilanterol Tr [Anoro Ellipta 62.5-25 MCG] 1 each IH DAILY 09/15 [History] polyethylene glycoL 3350 [MiraLAX] 17 gm PO ASDIRECTED PRN 09/16/19 [History] Fluticasone/Umeclidin/Vilanter [Trelegy Ellipta 100-62.5-25 MCG] 1 puff INH DAILY 09/17/19 [History] predniSONE [Prednisone] 40 mg PO DAILY 5 Days #10 tablet 09/18/19 [Rx] Oxygen Therapy Mode: Room Air Patient Handouts: Chronic Obstructive Pulmonary Disease Exacerbation, Easy-to- Read, Prednisone tablets Referrals: [facility] [Outside] Antonio Farris MD [Physician] - 09/24/19 8:00 am - Discharge Summary/Plan Comment DC Time >30 min.: No - Patient Data Vitals - Most Recent: Last Vital Signs Temp 97.8 F 09/18/19 07:40 Pulse 67 09/18/19 07:40 Resp 17 09/18/19 07:40 BP 139/76 09/18/19 07:40 Pulse Ox 96 09/18/19 07:40 Weight - Most Recent: 64 kg I&O - Last 24 hours: Intake & Output 09/17/19 09/18/19 09/18/19 22:59 06:59 14:59 Intake Total 1200 780 Output Total 1400 1800 Balance -200 -1020 Lab Results - Last 24 hrs: Laboratory Results - last 24 hr 09/18/19 09/18/19 Range/Units 05:30 05:30 WBC 10.25 (4.0-11.0) K/uL RBC 4.51 (4.30-5.90) M/uL Hgb 12.5 (12.0-16.0) g/dL Hct 38.7 (36.0-46.0) % MCV 85.8 (80.0-98.0) fL MCH 27.7 (27.0-32.0) pg MCHC 32.3 (31.0-37.0) g/dL RDW Std Deviation 46.0 (28.0-62.0) fl RDW Coeff of Peter 15 (11.0-15.0) % Plt Count 473 H (150-400) K/uL MPV 8.70 (7.40-12.00) fL Neut % (Auto) 78.4 (48.0-80.0) % Lymph % (Auto) 9.8 L (16.0-40.0) % Alcorn % (Auto) 11.7 (0.0-15.0) % Eos % (Auto) 0.1 (0.0-7.0) % Baso % (Auto) 0.0 (0.0-1.5) % Neut # (Auto) 8.0 H (1.4-5.7) K/uL Lymph # (Auto) 1.0 (0.6-2.4) K/uL Alcorn # (Auto) 1.2 H (0.0-0.8) K/uL Eos # (Auto) 0.0 (0.0-0.7) K/uL Baso # (Auto) 0.0 (0.0-0.1) K/uL Nucleated RBC % 0.0 /100WBC Nucleated RBCs # 0 K/uL Sodium 136 (136-145) mmol/L Potassium 4.0 (3.5-5.1) mmol/L Chloride 99 (98-107) mmol/L Carbon Dioxide 28.4 (21.0-32.0) mmol/L BUN 17 (7.0-18.0) mg/dL Creatinine 0.7 (0.6-1.0) mg/dL Est Cr Clr Drug Dosing 73.01 mL/min Estimated GFR (MDRD) > 60.0 ml/min Glucose 134 H (74-106) mg/dL Calcium 8.8 (8.5-10.1) mg/dL Total Bilirubin 0.3 (0.2-1.0) mg/dL AST 14 L (15-37) IU/L ALT 27 (14-63) IU/L Alkaline Phosphatase 74 (46-116) U/L Total Protein 6.9 (6.4-8.2) g/dL Albumin 3.5 (3.4-5.0) g/dL Globulin 3.4 (2.6-4.0) g/dL Albumin/Globulin Ratio 1.0 (0.9-1.6) Med Orders - Current: Current Medications Acetaminophen (Tylenol) 650 mg PO Q4H PRN PRN Reason: Fever Albuterol (Ventolin Hfa) 0 gm INH Q6HRRT [facility] Last Admin: 09/18/19 05:57 Dose: 2 puff Amlodipine Besylate (Norvasc) 5 mg PO BEDTIME [facility] Last Admin: 09/17/19 21:51 Dose: 5 mg Benzonatate (Tessalon Perles) 100 mg PO TID PRN PRN Reason: Cough Last Admin: 09/16/19 22:25 Dose: 100 mg Lorazepam (Ativan) 0.5 mg PO BID PRN PRN Reason: ANXIETY Methylprednisolone Sodium Succinate (Solu-Medrol) 125 mg IV DAILY [facility] Last Admin: 09/18/19 09:07 Dose: 125 mg Montelukast Sodium (Singulair) 10 mg PO DAILY [facility] Last Admin: 09/18/19 09:07 Dose: 10 mg Fluticasone/Umeclidin/Vilanter [ Trelegy Ellipta 100- 62.5-25 Mcg] 1 each INH DAILY [facility] Last Admin: 09/18/19 09:14 Dose: 1 each Sertraline HCl (Zoloft) 100 mg PO DAILY [facility] Last Admin: 09/18/19 09:07 Dose: Not Given Discontinued Medications Albuterol (Ventolin Hfa) 0 gm INH QID PRN PRN Reason: Wheezing Albuterol (Ventolin Hfa) 0 gm INH Q4H PRN PRN Reason: Shortness of Breath Albuterol (Ventolin Hfa) 0 gm INH Q4H PRN PRN Reason: Shortness of Breath Albuterol (Ventolin Hfa) 0 gm INH Q6HRRT [facility] Last Admin: 09/17/19 12:15 Dose: Not Given Albuterol/Ipratropium (Duoneb 3.0-0.5 Mg/3 Ml) 3 ml NEB ONETIME ONE Stop: 09/16/19 12:55 Last Admin: 09/16/19 12:58 Dose: 3 ml Albuterol/Ipratropium (Duoneb 3.0-0.5 Mg/3 Ml) 3 ml NEB ONETIME ONE Stop: 09/16/19 16:30 Last Admin: 09/16/19 16:48 Dose: 3 ml Sodium Chloride (Normal Saline) 1,000 mls @ 999 mls/hr IV STAT ONE Stop: 09/16/19 13:41 Last Admin: 09/16/19 12:55 Dose: 999 mls/hr Iopamidol (Isovue Multipack-370 (76%)) 50 ml IVPUSH ONETIME STA Stop: 09/16/19 15:22 Last Admin: 09/16/19 15:22 Dose: 50 ml Lorazepam (Ativan) 0.5 mg IVPUSH ONETIME ONE Stop: 09/16/19 16:09 Last Admin: 09/16/19 16:16 Dose: 0.5 mg Methylprednisolone Sodium Succinate (Solu-Medrol) 125 mg IVPUSH ONETIME ONE Stop: 09/16/19 12:41 Last Admin: 09/16/19 12:55 Dose: 125 mg Umeclidinium Brm/Vilanterol Tr [Anoro Ellipta 62.5-25 Mcg ] 1 each INH DAILY [facility] Last Admin: 09/17/19 09:21 Dose: Not Given Fluticasone/Umeclidin/Vilanter 1 Puff 0 each INH DAILY [facility] Last Admin: 09/17/19 10:02 Dose: 1 each Ventolin Hfa 0 each INH Q6HRRT [facility] Last Admin: 09/17/19 12:14 Dose: 2 each <Samuel Awan - Last Filed: 09/20/19 20:07> Discharge Summary - Referral to Home Health Primary Care Physician: PCP None - Patient Summary/Data Consults: Consultations 09/17/19 09:52 Consult to Home Health [CONS] Routine - Patient Data Vitals - Most Recent: Last Vital Signs Temp 36.6 C 09/18/19 07:40 Pulse 67 09/18/19 07:40 Resp 17 09/18/19 07:40 BP 139/76 09/18/19 07:40 Pulse Ox 96 09/18/19 07:40 Med Orders - Current: Current Medications Discontinued Medications Acetaminophen (Tylenol) 650 mg PO Q4H PRN PRN Reason: Fever Albuterol (Ventolin Hfa) 0 gm INH QID PRN PRN Reason: Wheezing Albuterol (Ventolin Hfa) 0 gm INH Q4H PRN PRN Reason: Shortness of Breath Albuterol (Ventolin Hfa) 0 gm INH Q4H PRN PRN Reason: Shortness of Breath Albuterol (Ventolin Hfa) 0 gm INH Q6HRRT [facility] Last Admin: 09/17/19 12:15 Dose: Not Given Albuterol (Ventolin Hfa) 0 gm INH Q6HRRT [facility] Last Admin: 09/18/19 12:07 Dose: 2 puff Albuterol/Ipratropium (Duoneb 3.0-0.5 Mg/3 Ml) 3 ml NEB ONETIME ONE Stop: 09/16/19 12:55 Last Admin: 09/16/19 12:58 Dose: 3 ml Albuterol/Ipratropium (Duoneb 3.0-0.5 Mg/3 Ml) 3 ml NEB ONETIME ONE Stop: 09/16/19 16:30 Last Admin: 09/16/19 16:48 Dose: 3 ml Amlodipine Besylate (Norvasc) 5 mg PO BEDTIME [facility] Last Admin: 09/17/19 21:51 Dose: 5 mg Benzonatate (Tessalon Perles) 100 mg PO TID PRN PRN Reason: Cough Last Admin: 09/16/19 22:25 Dose: 100 mg Sodium Chloride (Normal Saline) 1,000 mls @ 999 mls/hr IV STAT ONE Stop: 09/16/19 13:41 Last Admin: 09/16/19 12:55 Dose: 999 mls/hr Iopamidol (Isovue Multipack-370 (76%)) 50 ml IVPUSH ONETIME STA Stop: 09/16/19 15:22 Last Admin: 09/16/19 15:22 Dose: 50 ml Lorazepam (Ativan) 0.5 mg IVPUSH ONETIME ONE Stop: 09/16/19 16:09 Last Admin: 09/16/19 16:16 Dose: 0.5 mg Lorazepam (Ativan) 0.5 mg PO BID PRN PRN Reason: ANXIETY Methylprednisolone Sodium Succinate (Solu-Medrol) 125 mg IVPUSH ONETIME ONE Stop: 09/16/19 12:41 Last Admin: 09/16/19 12:55 Dose: 125 mg Methylprednisolone Sodium Succinate (Solu-Medrol) 125 mg IV DAILY [facility] Last Admin: 09/18/19 09:07 Dose: 125 mg Montelukast Sodium (Singulair) 10 mg PO DAILY [facility] Last Admin: 09/18/19 09:07 Dose: 10 mg Umeclidinium Brm/Vilanterol Tr [Anoro Ellipta 62.5-25 Mcg ] 1 each INH DAILY [facility] Last Admin: 09/17/19 09:21 Dose: Not Given Fluticasone/Umeclidin/Vilanter 1 Puff 0 each INH DAILY [facility] Last Admin: 09/17/19 10:02 Dose: 1 each Ventolin Hfa 0 each INH Q6HRRT [facility] Last Admin: 09/17/19 12:14 Dose: 2 each Fluticasone/Umeclidin/Vilanter [ Trelegy Ellipta 100- 62.5-25 Mcg] 1 each INH DAILY [facility] Last Admin: 09/18/19 09:14 Dose: 1 each Sertraline HCl (Zoloft) 100 mg PO DAILY [facility] Last Admin: 09/18/19 09:07 Dose: Not Given - Free Text/Narrative Note: I have seen and examined the patient. I have discussed findings and treatment plan with resident. I agree with the assessment and plan as outlined in the following note.
== END 2019-09-18 15:30 | disposition home or self-care (01) ==
LOC: MW.ED 12:17 → MW.MS 17:56
PROVIDERS: ADMIT Internal Medicine; ATTEND Internal Medicine
DX: J44.1 Chronic obstructive pulmonary disease with (acute) exacerbation (principal); J96.01 Acute respiratory failure with hypoxia; I10 Essential (primary) hypertension; F41.9 Anxiety disorder, unspecified; F32.9 Major depressive disorder, single episode, unspecified; Z87.891 Personal history of nicotine dependence; Z79.899 Other long term (current) drug therapy
CPT/HCPCS: 36415; 71045; 71275; 80048; 80053; 84484; 85025; 87804; 93005; 94640; 96361; 96374; 96375; 96376; 99285; A9270; G0378; J2060; J2930; J7030; Q9967; U0002; J7620-GY

== ENCOUNTER 2020-01-11 13:40 | Emergency (ER) | payer MEDICARE, MEDICAID ==
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
[2020-01-11 14:13] VITALS: BP 149/77; PULSE 88
--- NOTE | 2020-01-11 14:54 | CR ---
HISTORY: Fall, swelling and pain. TECHNIQUE: Three views of the right wrist. COMPARISON: No prior. FINDINGS: There is no acute fracture. There are 1st CMC and triscaphe joint degenerative changes. Degenerative changes are noted involving 1st MCP joint. No acute fracture. Soft tissue swelling is present. IMPRESSION: 1. No acute fracture. 2. Degenerative changes. 3. Soft tissue swelling. Dictated by Bradley Carmona MD @ 01/11/2020 2:52:56 PM Dictated by: Bradley Carmona MD @ 01/11/2020 14:53:01 (Electronically Signed)
== END 2020-01-11 15:27 | disposition home or self-care (01) ==
LOC: MW.ED 13:40
DX: S63.501A Unspecified sprain of right wrist, initial encounter (principal); I10 Essential (primary) hypertension; J44.9 Chronic obstructive pulmonary disease, unspecified; Z79.899 Other long term (current) drug therapy; Z98.51 Tubal ligation status; X58.XXXA Exposure to other specified factors, initial encounter
CPT/HCPCS: 73110-26-RT; 73110-RT; 99283; 99283-25

== ENCOUNTER 2020-12-14 12:43 | Observation (INO) | payer MEDICARE, MEDICAID ==
[2020-12-14] MEDS: Albuterol/Ipratropium 3.0-0.5 MG/3 ML Neb Soln ONE ×2 (13:56→14:53)
[2020-12-14] MEDS ORDERED: Sodium Chloride 0.9% 10 ML Syringe FLUSH PRN (13:56)
[2020-12-14] MEDS ORDERED: Sodium Chloride 0.9% 2.5 ML Syringe FLUSH PRN (13:56)
--- NOTE | 2020-12-14 13:57 | PCM.EKG ---
#1 Interpretation EKG Interpretation Comments: EKG: As interpreted by ER physician: Mallorie: Nonspecific ST-T wave abnormalities Normal axis Para clockwise rotation No evidence of ST elevation CO Normal sinus rhythm heart rate of 77
[2020-12-14] MEDS ORDERED: Albuterol/Ipratropium 3.0-0.5 MG/3 ML Neb Soln NEB ONE ×3 (14:00→14:31)
[2020-12-14 14:15] LABS: BLOOD UREA NITROGEN,BUN 11 mg/dL (7.0-18.0); CARBON DIOXIDE,CO2 24.6 mmol/L (21.0-32.0); CHLORIDE,CL 93 mmol/L (98-107); GLUCOSE RANDOM 194 mg/dL (74-106); POTASSIUM,K 4.1 mmol/L (3.5-5.1); SODIUM,NA 129 mmol/L (136-145)
[2020-12-14] MEDS ORDERED: Sodium Chloride 0.9% 1,000 ML IV ONE (14:30)
[2020-12-14] MEDS ORDERED: methylPREDNISolone Sodium Succinate 125 MG/2 ML SDV IVPUSH ONE (14:32)
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
--- NOTE | 2020-12-14 15:00 | CR ---
INDICATION: Dyspnea. Recent pneumonia COMPARISON: September 16, 2019 TECHNIQUE: PA and lateral views of the chest were acquired FINDINGS: TUBES AND LINES: None. HEART AND MEDIASTINUM: The heart size is normal. The mediastinal contour appears normal for patient age. LUNGS AND PLEURAL SPACES: Hyperinflation likely related to COPD. A few linear opacities at the right lung base probably atelectasis or scarring.No focal consolidation, infiltrate, mass or finding active pneumonia. OSSEOUS STRUCTURES: Age-appropriate appearance. No acute focal finding. IMPRESSION: COPD pattern. A few linear opacities at the right lung base probably represent atelectasis or scarring. No focal consolidation, infiltrate, mass or finding of edema. No pleural effusion or pneumothorax. Dictated by Khadar Urbina MD @ 12/14/2020 2:59:[address] Khadar Urbina @ Dec 14 2020 2:59PM
[2020-12-14] MEDS ORDERED: cefTRIAXone 1 GM in Premix Bag 1 BAG IV ONE (16:07)
[2020-12-14] MEDS ORDERED: Sodium Chloride 0.9% 500 ML IV SCH (16:15)
[2020-12-14] MEDS ORDERED: Iopamidol 755 MG/ML 500 ML Multipack Bottle IVPUSH STA (16:32)
[2020-12-14 16:49] LABS: CORONAVIRUS COVID-19 NAA NEGATIVE (NEGATIVE); INFLUENZA A NAA NEGATIVE (NEGATIVE); INFLUENZA B NAA NEGATIVE (NEGATIVE)
--- NOTE | 2020-12-14 18:24 | CT ---
INDICATION: Hypoxia. Dyspnea. Fever. COMPARISON: A similar study dated September 16, 2019 TECHNIQUE: : CT examination of the chest was performed with the uneventful intravenous administration of 75 cc of Isovue 3 7 while thin axial sections were obtained from above the apices of the lungs to the lung bases. Please note that all CT scans at this facility use dose modulation, iterative reconstruction, and/or weight-based dosing when appropriate to reduce radiation dose to as low as reasonably achievable. FINDINGS: : HEART and MEDIASTINUM: Heart size normal. Mildly prominent mediastinal lymph nodes probably reactive especially given the lung findings discussed below. No pericardial effusion. Atherosclerotic vascular calcifications identified. Small hiatal hernia PULMONARY ARTERIAL CIRCULATION: There is no visible intraluminal filling defect to suggest pulmonary embolus. LUNGS: Abnormal lungs. There is biapical pleural parenchymal scarring. Moderate upper lobe predominant centrilobular emphysema. A few patchy airspace opacities are identified primarily in the lower lobes, right greater than left which are probably inflammatory appearance there also linear opacities at the lung bases which are likely atelectatic or fibrotic appearance a three-month follow-up CT is recommended to ensure that the probably inflammatory lesions all resolve PLEURAL SPACES: There is no pleural effusion, pneumothorax or pleural based mass. VISUALIZED UPPER ABDOMEN: The limited visualized upper abdominal structures demonstrate an indeterminate 1.3 centimeter right adrenal mass. OSSEOUS STRUCTURES: Age-appropriate appearance. No acute fracture or destructive process. TUBES and LINES: None. IMPRESSION: 1. There is no evidence of pulmonary embolus. 2. Mildly prominent mediastinal lymph nodes likely reactive to the lung findings described below. 3. Background pattern of emphysema, upper lobe predominant, moderate. Patchy airspace opacities at the bases probably a combination of atelectasis, scarring and a multifocal inflammatory process. The presumably inflammatory process is somewhat nodular, especially on the right, and a follow-up CT in 3 months is recommended to ensure that it resolves. 4. Indeterminate right adrenal lesion. This would best be followed up by a multiphase CT or MRI at a clinically appropriate time Please note that all CT scans at this facility use dose modulation, iterative reconstruction, and/or weight-based dosing when appropriate to reduce radiation dose to as low as reasonably achievable. Dictated by Khadar Urbina MD @ 12/14/2020 6:22:[address] Khadar Urbina @ Dec 14 2020 6:22PM
[2020-12-14] MEDS ORDERED: Albuterol/Ipratropium 3.0-0.5 MG/3 ML Neb Soln NEB PRN (19:14)
[2020-12-14] MEDS ORDERED: Acetaminophen 325 MG Tab PO PRN (19:14)
[2020-12-14] MEDS ORDERED: Ondansetron 4 MG/2 ML SDV IVPUSH PRN (19:14)
[2020-12-14] MEDS ORDERED: Azithromycin 250 MG Tab PO ONE (19:18)
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
[2020-12-14 20:16] LABS: HEMOGLOBIN A1C 5.9 %
[2020-12-14] MEDS: Lactated Ringers 1,000 ML IV SCH (21:17)
[2020-12-14] MEDS: methylPREDNISolone Sodium Succinate 40 MG/1 ML SDV IVPUSH SCH (22:26)
[2020-12-15] MEDS: methylPREDNISolone Sodium Succinate 40 MG/1 ML SDV IVPUSH SCH (06:16)
[2020-12-15 06:18] LABS: BLOOD UREA NITROGEN,BUN 10 mg/dL (7.0-18.0); CHLORIDE,CL 100 mmol/L (98-107); GLUCOSE RANDOM 154 mg/dL (74-106); POTASSIUM,K 4.6 mmol/L (3.5-5.1); SODIUM,NA 136 mmol/L (136-145)
[2020-12-15 08:01] VITALS: BP 116/74; PULSE 82
[2020-12-15] MEDS: Lactated Ringers 1,000 ML IV SCH (08:09)
[2020-12-15] MEDS ORDERED: Azithromycin 250 MG Tab PO SCH (09:00)
[2020-12-15] MEDS ORDERED: Fluticasone/Umeclidin/Vilanter [Trelegy Ellipta 100-62.5-25 Mcg] INH SCH (09:00)
[2020-12-15] MEDS ORDERED: Pantoprazole 40 MG in Sodium Chloride 0.9% 10 ML IV SCH (09:00)
[2020-12-15] MEDS ORDERED: Multivitamin Tab PO SCH (09:00)
--- NOTE | 2020-12-15 10:13 | PCM.DCSUM1 ---
Discharge Summary - Hospital Course HPI Initial Comments: 69-year-old female admitted for COPD exacerbation. She has a PMH of copd ON HOME OXYGEN PRN, HTN, anxiety and depression, chronic dizziness who comes in secondary to worsening shortness of breath for the past few days. Patient states that she has been doing well but over last 2 days she has increasing cough and shortness of breath and seems to feel like she either has pneumonia or COPD is getting worse. In the ER patient was found to have leukocytosis but no other sepsis criteria.. Her lactic acid was slightly elevated and sodium was 129. Patient received duo nebs and IV steroids in the ER. Chest x-ray did not show any infiltrate but did show chronic COPD changes and scarring. D-dimer was slightly elevated so CTA chest was obtained in the ER to rule out a PE. No PE was found but patient did have mildly prominent mediastinal lymph nodes likely reactive in nature. Background pattern of emphysema and patchy airspace opacities at the base probably a combination of atelectasis and scarring and a multifocal inflammatory process. The presumably inflammatory process is somewhat nodular especially in the right and a follow-up CT in 3 months was recommended. Patient also has intermediate right adrenal lesion which was recommended to be followed up by a multiphasic CT or MRI at the clinically appropriate time. Patient was admitted to the hospital for further management. Patient states that she has chronic dizziness which is being worked up by neurology on outpatient basis. She saw an forestry tree pruner as well as PT for vestibular rehab but so far has not really helped and she is supposed to see her neurologist next month. Diagnosis: Stroke: No - Discharge Data Discharge Date: 12/15/20 Discharge Disposition: Home, Self-Care 01 Condition: Stable - Referral to Home Health Primary Care Physician: Antonio Farris MD - Discharge Diagnosis/Problem(s) (1) COPD exacerbation SNOMED Code(s): 276243894 ICD Code: J44.1 - CHRONIC OBSTRUCTIVE PULMONARY DISEASE W (ACUTE) EXACERBATION Status: Acute Current Visit: Yes (2) COPD (chronic obstructive pulmonary disease) SNOMED Code(s): 85317305 ICD Code: J44.9 - CHRONIC OBSTRUCTIVE PULMONARY DISEASE, UNSPECIFIED Status: Acute Current Visit: No Qualifiers: COPD type: chronic bronchitis Chronic bronchitis type: simple Qualified Code(s): J41.0 - Simple chronic bronchitis (3) Dehydration SNOMED Code(s): 06496793 ICD Code: E86.0 - DEHYDRATION Status: Acute Current Visit: No (4) Hyponatremia SNOMED Code(s): 71514150 ICD Code: E87.1 - HYPO-OSMOLALITY AND HYPONATREMIA Status: Acute Current Visit: No (5) Anxiety SNOMED Code(s): 41551236 ICD Code: F41.9 - ANXIETY DISORDER, UNSPECIFIED Status: Chronic Current Visit: No (6) Hypertension SNOMED Code(s): 52647561 ICD Code: I10 - ESSENTIAL (PRIMARY) HYPERTENSION Status: Chronic Priority: Medium Current Visit: No Qualifiers: Hypertension type: essential hypertension Qualified Code(s): I10 - Essential (primary) hypertension (7) Oxygen dependent SNOMED Code(s): 198322531311 ICD Code: Z99.81 - DEPENDENCE ON SUPPLEMENTAL OXYGEN Status: Chronic Current Visit: No - Patient Summary/Data Hospital Course: Admission diagnoses COPD exacerbation Dehydration Hyponatremia Discharge diagnoses COPD exacerbation improved Dehydration resolved Hyponatremia resolved Other PMH Anxiety Hypertension chin Intermittent oxygen dependence at home Dizziness which is currently being worked up by audiology and neurology Susana was admitted secondary to dyspnea and concern for COPD exacerbation. D- dimer in the ER was slightly elevated on admission CT angio obtained which showed no acute concerns for PE and no infiltrates regarding pneumonia. Mild leukocytosis noted at 14,000 with hyponatremia. Mild bump in creatinine 1.1. Patient was treated with IV fluids and these resolved. Lactic acid mildly elevated 2.1 repeat 2. Patient was started on duo nebs, IV Solu-Medrol, and azithromycin for anti-inflammatory effect of COPD. Today patient is not needing oxygen and she is feeling significantly better. She has been up ambulating in the hallway and feels well. Patient is requesting discharge home. She did talk at length about wanting to stop her prednisone at some point. Recommend this is done under the guidance of her PCP and/or pulmonology team. Patient will be discharged home today on 4-day taper of prednisone 40 mg and then to resume her home dose of 5 mg of prednisone at that point. She will be discharged home as well on azithromycin for 4 more days. She is to follow-up with PCP and continue further follow-up for dizziness. Patient is to return to the ER clinic if concerns should arise sooner. Patient was notified of right adrenal lesion. This should be followed up with multiphase CT or MRI as an outpatient. We will let PCP continue this work-up further as outpatient. - Patient Instructions Diet: Heart Healthy Diet Activity: No Strenuous Activities Showering/Bathing: May Shower Notify Provider of: Fever, Increased Pain, Swelling and Redness, Drainage, Nausea and/or Vomiting - Discharge Plan *PRESCRIPTION DRUG MONITORING PROGRAM REVIEWED*: Not Applicable *COPY OF PRESCRIPTION DRUG MONITORING REPORT IN PATIENT GLORIA: Not Applicable Prescriptions/Med Rec: predniSONE [Prednisone] 40 mg PO DAILY #8 tablet Azithromycin [Zithromax] 250 mg PO Q24H #4 tablet Home Medications: Home Meds amLODIPine Besylate [Amlodipine Besylate] 5 mg PO BEDTIME 02/18/19 [History] Acetaminophen [Tylenol] 650 mg PO Q4H PRN tablet 02/21/19 [Rx] Albuterol [Ventolin HFA] 2 puff INH Q4H PRN 09/16/19 [History] Calcium Citrate 400 mg PO DAILY 09/16/19 [History] Cholecalciferol (Vitamin D3) [Vitamin D3] 50 mcg PO DAILY 09/16/19 [History] Cyclobenzaprine HCl 5 mg PO ASDIRECTED PRN 09/16/19 [History] Multivitamin [Daily Multiple Vitamin] 1 each PO DAILY 09/16/19 [History] polyethylene glycoL 3350 [MiraLAX] 17 gm PO ASDIRECTED PRN 09/16/19 [History] Fluticasone/Umeclidin/Vilanter [Trelegy Ellipta 100-62.5-25 MCG] 1 puff INH DAILY 09/17/19 [History] predniSONE [Prednisone] 5 mg PO DAILY 12/14/20 [History] Azithromycin [Zithromax] 250 mg PO Q24H #4 tablet 12/15/20 [Rx] predniSONE [Prednisone] 40 mg PO DAILY #8 tablet 12/15/20 [Rx] Oxygen Therapy Mode: Room Air Patient Handouts: Chronic Obstructive Pulmonary Disease Exacerbation, Ea sy-to-Read, Azithromycin tablets, Prednisone tablets Referrals: Antonio Farris MD [Primary Care Provider] - 12/23/20 10:30 am - Discharge Summary/Plan Comment DC Time >30 min.: No - Patient Data Vitals - Most Recent: Last Vital Signs Temp 97.2 F 12/15/20 08:00 Pulse 82 12/15/20 08:00 Resp 18 12/15/20 08:00 BP 116/74 12/15/20 08:00 Pulse Ox 94 L 12/15/20 08:00 Weight - Most Recent: 73.5 kg I&O - Last 24 hours: Intake & Output 12/14/20 12/15/20 12/15/20 22:59 06:59 14:59 Intake Total 1141 Output Total 1200 Balance -59 Lab Results - Last 24 hrs: Laboratory Results - last 24 hr 12/14/20 12/14/20 12/14/20 Range/Units 13:10 13:10 13:10 WBC 14.38 H (4.0-11.0) K/uL RBC 4.48 (4.30-5.90) M/uL Hgb 13.3 (12.0-16.0) g/dL Hct 39.2 (36.0-46.0) % MCV 87.5 (80.0-98.0) fL MCH 29.7 (27.0-32.0) pg MCHC 33.9 (31.0-37.0) g/dL RDW Std Deviation 43.2 (28.0-62.0) fl RDW Coeff of Peter 13 (11.0-15.0) % Plt Count 397 (150-400) K/uL MPV 9.60 (7.40-12.00) fL Neut % (Auto) 85.7 H (48.0-80.0) % Lymph % (Auto) 5.3 L (16.0-40.0) % [place] % (Auto) 8.8 (0.0-15.0) % Eos % (Auto) 0.1 (0.0-7.0) % Baso % (Auto) 0.1 (0.0-1.5) % Neut # (Auto) 12.3 H (1.4-5.7) K/uL Lymph # (Auto) 0.8 (0.6-2.4) K/uL [place] # (Auto) 1.3 H (0.0-0.8) K/uL Eos # (Auto) 0.0 (0.0-0.7) K/uL Baso # (Auto) 0.0 (0.0-0.1) K/uL Nucleated RBC % 0.0 /100WBC Nucleated RBCs # 0 K/uL D-Dimer, Quantitative (0.0-0.50) mg/L FEU Sodium 129 L (136-145) mmol/L Potassium 4.1 (3.5-5.1) mmol/L Chloride 93 L (98-107) mmol/L Carbon Dioxide 24.6 (21.0-32.0) mmol/L BUN 11 (7.0-18.0) mg/dL Creatinine 1.1 H (0.6-1.0) mg/dL Est Cr Clr Drug Dosing 45.82 mL/min Estimated GFR (MDRD) 49.4 ml/min Glucose 194 H (74-106) mg/dL Hemoglobin A1c 5.9 (4.5 - 6.2) % Lactic Acid (0.4-2.0) mmol/L Calcium 9.2 (8.5-10.1) mg/dL Phosphorus (2.6-4.7) mg/dL Magnesium (1.8-2.4) mg/dL Total Bilirubin 0.5 (0.2-1.0) mg/dL AST 35 (15-37) IU/L ALT 39 (14-63) IU/L Alkaline Phosphatase 111 (46-116) U/L Troponin I < 0.050 (0.000-0.056) ng/mL Total Protein 7.5 (6.4-8.2) g/dL Albumin 3.5 (3.4-5.0) g/dL Globulin 4.0 (2.6-4.0) g/dL Albumin/Globulin Ratio 0.9 (0.9-1.6) Urine Color Urine Appearance Urine pH (5.0-8.0) Ur Specific [place] (1.001-1.035) Urine Protein (NEGATIVE) mg/dL Urine Glucose (UA) (NEGATIVE) mg/dL Urine Ketones (NEGATIVE) mg/dL Urine Occult Blood (NEGATIVE) Urine Nitrite (NEGATIVE) Urine Bilirubin (NEGATIVE) Urine Urobilinogen (<2.0) EU/dL Ur Leukocyte Esterase (NEGATIVE) Influenza Type A RNA (NEGATIVE) Influenza Type B RNA (NEGATIVE) SARS-CoV-2 RNA (MARTHA) (NEGATIVE) 12/14/20 12/14/20 12/14/20 Range/Units 14:42 14:48 15:45 WBC (4.0-11.0) K/uL RBC (4.30-5.90) M/uL Hgb (12.0-16.0) g/dL Hct (36.0-46.0) % MCV (80.0-98.0) fL MCH (27.0-32.0) pg MCHC (31.0-37.0) g/dL RDW Std Deviation (28.0-62.0) fl RDW Coeff of Peter (11.0-15.0) % Plt Count (150-400) K/uL MPV (7.40-12.00) fL Neut % (Auto) (48.0-80.0) % Lymph % (Auto) (16.0-40.0) % [place] % (Auto) (0.0-15.0) % Eos % (Auto) (0.0-7.0) % Baso % (Auto) (0.0-1.5) % Neut # (Auto) (1.4-5.7) K/uL Lymph # (Auto) (0.6-2.4) K/uL [place] # (Auto) (0.0-0.8) K/uL Eos # (Auto) (0.0-0.7) K/uL Baso # (Auto) (0.0-0.1) K/uL Nucleated RBC % /100WBC Nucleated RBCs # K/uL D-Dimer, Quantitative 0.54 H (0.0-0.50) mg/L FEU Sodium (136-145) mmol/L Potassium (3.5-5.1) mmol/L Chloride (98-107) mmol/L Carbon Dioxide (21.0-32.0) mmol/L BUN (7.0-18.0) mg/dL Creatinine (0.6-1.0) mg/dL Est Cr Clr Drug Dosing mL/min Estimated GFR (MDRD) ml/min Glucose (74-106) mg/dL Hemoglobin A1c (4.5 - 6.2) % Lactic Acid 2.1 H* (0.4-2.0) mmol/L Calcium (8.5-10.1) mg/dL Phosphorus (2.6-4.7) mg/dL Magnesium (1.8-2.4) mg/dL Total Bilirubin (0.2-1.0) mg/dL AST (15-37) IU/L ALT (14-63) IU/L Alkaline Phosphatase (46-116) U/L Troponin I (0.000-0.056) ng/mL Total Protein (6.4-8.2) g/dL Albumin (3.4-5.0) g/dL Globulin (2.6-4.0) g/dL Albumin/Globulin Ratio (0.9-1.6) Urine Color Urine Appearance Urine pH (5.0-8.0) Ur Specific [place] (1.001-1.035) Urine Protein (NEGATIVE) mg/dL Urine Glucose (UA) (NEGATIVE) mg/dL Urine Ketones (NEGATIVE) mg/dL Urine Occult Blood (NEGATIVE) Urine Nitrite (NEGATIVE) Urine Bilirubin (NEGATIVE) Urine Urobilinogen (<2.0) EU/dL Ur Leukocyte Esterase (NEGATIVE) Influenza Type A RNA NEGATIVE (NEGATIVE) Influenza Type B RNA NEGATIVE (NEGATIVE) SARS-CoV-2 RNA (MARTHA) NEGATIVE (NEGATIVE) 12/14/20 12/14/20 12/15/20 Range/Units 19:00 19:47 05:15 WBC 11.49 H (4.0-11.0) K/uL RBC 4.26 L (4.30-5.90) M/uL Hgb 12.5 (12.0-16.0) g/dL Hct 37.3 (36.0-46.0) % MCV 87.6 (80.0-98.0) fL MCH 29.3 (27.0-32.0) pg MCHC 33.5 (31.0-37.0) g/dL RDW Std Deviation 42.8 (28.0-62.0) fl RDW Coeff of Peter 13 (11.0-15.0) % Plt Count 372 (150-400) K/uL MPV 9.20 (7.40-12.00) fL Neut % (Auto) 92.3 H (48.0-80.0) % Lymph % (Auto) 5.9 L (16.0-40.0) % [place] % (Auto) 1.7 (0.0-15.0) % Eos % (Auto) 0.0 (0.0-7.0) % Baso % (Auto) 0.1 (0.0-1.5) % Neut # (Auto) 10.6 H (1.4-5.7) K/uL Lymph # (Auto) 0.7 (0.6-2.4) K/uL [place] # (Auto) 0.2 (0.0-0.8) K/uL Eos # (Auto) 0.0 (0.0-0.7) K/uL Baso # (Auto) 0.0 (0.0-0.1) K/uL Nucleated RBC % 0.0 /100WBC Nucleated RBCs # 0 K/uL D-Dimer, Quantitative (0.0-0.50) mg/L FEU Sodium (136-145) mmol/L Potassium (3.5-5.1) mmol/L Chloride (98-107) mmol/L Carbon Dioxide (21.0-32.0) mmol/L BUN (7.0-18.0) mg/dL Creatinine (0.6-1.0) mg/dL Est Cr Clr Drug Dosing mL/min Estimated GFR (MDRD) ml/min Glucose (74-106) mg/dL Hemoglobin A1c (4.5 - 6.2) % Lactic Acid 2.0 (0.4-2.0) mmol/L Calcium (8.5-10.1) mg/dL Phosphorus (2.6-4.7) mg/dL Magnesium (1.8-2.4) mg/dL Total Bilirubin (0.2-1.0) mg/dL AST (15-37) IU/L ALT (14-63) IU/L Alkaline Phosphatase (46-116) U/L Troponin I (0.000-0.056) ng/mL Total Protein (6.4-8.2) g/dL Albumin (3.4-5.0) g/dL Globulin (2.6-4.0) g/dL Albumin/Globulin Ratio (0.9-1.6) Urine Color YELLOW Urine Appearance CLEAR Urine pH 6.0 (5.0-8.0) Ur Specific [place] <= 1.005 (1.001-1.035) Urine Protein NEGATIVE (NEGATIVE) mg/dL Urine Glucose (UA) >=1000 (NEGATIVE) mg/dL Urine Ketones 15 H (NEGATIVE) mg/dL Urine Occult Blood NEGATIVE (NEGATIVE) Urine Nitrite NEGATIVE (NEGATIVE) Urine Bilirubin NEGATIVE (NEGATIVE) Urine Urobilinogen 0.2 (<2.0) EU/dL Ur Leukocyte Esterase NEGATIVE (NEGATIVE) Influenza Type A RNA (NEGATIVE) Influenza Type B RNA (NEGATIVE) SARS-CoV-2 RNA (MARTHA) (NEGATIVE) 12/15/20 Range/Units 05:15 WBC (4.0-11.0) K/uL RBC (4.30-5.90) M/uL Hgb (12.0-16.0) g/dL Hct (36.0-46.0) % MCV (80.0-98.0) fL MCH (27.0-32.0) pg MCHC (31.0-37.0) g/dL RDW Std Deviation (28.0-62.0) fl RDW Coeff of Peter (11.0-15.0) % Plt Count (150-400) K/uL MPV (7.40-12.00) fL Neut % (Auto) (48.0-80.0) % Lymph % (Auto) (16.0-40.0) % [place] % (Auto) (0.0-15.0) % Eos % (Auto) (0.0-7.0) % Baso % (Auto) (0.0-1.5) % Neut # (Auto) (1.4-5.7) K/uL Lymph # (Auto) (0.6-2.4) K/uL [place] # (Auto) (0.0-0.8) K/uL Eos # (Auto) (0.0-0.7) K/uL Baso # (Auto) (0.0-0.1) K/uL Nucleated RBC % /100WBC Nucleated RBCs # K/uL D-Dimer, Quantitative (0.0-0.50) mg/L FEU Sodium 136 (136-145) mmol/L Potassium 4.6 (3.5-5.1) mmol/L Chloride 100 (98-107) mmol/L Carbon Dioxide 25.0 (21.0-32.0) mmol/L BUN 10 (7.0-18.0) mg/dL Creatinine 0.7 (0.6-1.0) mg/dL Est Cr Clr Drug Dosing 72.01 mL/min Estimated GFR (MDRD) > 60.0 ml/min Glucose 154 H (74-106) mg/dL Hemoglobin A1c (4.5 - 6.2) % Lactic Acid (0.4-2.0) mmol/L Calcium 9.4 (8.5-10.1) mg/dL Phosphorus 4.3 (2.6-4.7) mg/dL Magnesium 1.9 (1.8-2.4) mg/dL Total Bilirubin (0.2-1.0) mg/dL AST (15-37) IU/L ALT (14-63) IU/L Alkaline Phosphatase (46-116) U/L Troponin I (0.000-0.056) ng/mL Total Protein (6.4-8.2) g/dL Albumin (3.4-5.0) g/dL Globulin (2.6-4.0) g/dL Albumin/Globulin Ratio (0.9-1.6) Urine Color Urine Appearance Urine pH (5.0-8.0) Ur Specific [place] (1.001-1.035) Urine Protein (NEGATIVE) mg/dL Urine Glucose (UA) (NEGATIVE) mg/dL Urine Ketones (NEGATIVE) mg/dL Urine Occult Blood (NEGATIVE) Urine Nitrite (NEGATIVE) Urine Bilirubin (NEGATIVE) Urine Urobilinogen (<2.0) EU/dL Ur Leukocyte Esterase (NEGATIVE) Influenza Type A RNA (NEGATIVE) Influenza Type B RNA (NEGATIVE) SARS-CoV-2 RNA (MARTHA) (NEGATIVE) Med Orders - Current: Current Medications Acetaminophen (Acetaminophen 325 Mg Tab) 650 mg PO Q4H PRN PRN Reason: Pain (Mild 1-3)/fever Albuterol/Ipratropium (Albuterol/Ipratropium 3.0-0.5 Mg/3 Ml Neb Soln) 3 ml NEB Q4HRRT PRN PRN Reason: Shortness Of Breath/wheezing Azithromycin (Azithromycin 250 Mg Tab) 250 mg PO Q24H [facility] Last Admin: 12/15/20 08:15 Dose: 250 mg Documented by: Pantoprazole Sodium 40 mg/ (Sodium Chloride) 10 mls @ 300 mls/hr IV DAILY [facility] Last Admin: 12/15/20 08:11 Dose: 300 mls/hr Documented by: Methylprednisolone Sodium Succinate (Methylprednisolone Sodium Succinate 40 Mg/1 Ml Sdv) 40 mg IVPUSH Q8H [facility] Last Admin: 12/15/20 06:16 Dose: 40 mg Documented by: Multivitamins/Minerals/Vitamin C (Multivitamin Tab) 1 tab PO DAILY [place] Ondansetron HCl (Ondansetron 4 Mg/2 Ml Sdv) 4 mg IVPUSH Q4H PRN PRN Reason: Nausea/Vomiting Fluticasone/Umeclidin/Vilanter [ Trelegy Ellipta 100- 62.5-25 Mcg] 1 each INH DAILY [place] Discontinued Medications Albuterol/Ipratropium (Albuterol/Ipratropium 3.0-0.5 Mg/3 Ml Neb Soln) Confirm Administered Dose 3 ml .ROUTE .STK-MED ONE Stop: 12/14/20 13:54 Last Admin: 12/14/20 14:53 Dose: Not Given Documented by: Albuterol/Ipratropium (Albuterol/Ipratropium 3.0-0.5 Mg/3 Ml Neb Soln) 3 ml NEB ONETIME ONE Stop: 12/14/20 14:01 Last Admin: 12/14/20 14:52 Dose: 3 ml Documented by: Albuterol/Ipratropium (Albuterol/Ipratropium 3.0-0.5 Mg/3 Ml Neb Soln) 3 ml NEB ONETIME ONE Stop: 12/14/20 14:32 Last Admin: 12/14/20 14:52 Dose: 3 ml Documented by: Albuterol/Ipratropium (Albuterol/Ipratropium 3.0-0.5 Mg/3 Ml Neb Soln) 3 ml NEB ONETIME ONE Stop: 12/14/20 14:32 Last Admin: 12/14/20 14:52 Dose: 3 ml Documented by: Azithromycin (Azithromycin 250 Mg Tab) 500 mg PO Q24H ONE Stop: 12/14/20 19:19 Last Admin: 12/14/20 21:16 Dose: 500 mg Documented by: Sodium Chloride (Normal Saline) 1,000 mls @ 999 mls/hr IV STAT ONE Stop: 12/14/20 15:30 Last Admin: 12/14/20 14:53 Dose: 999 mls/hr Documented by: Sodium Chloride (Normal Saline) 500 mls @ 999 mls/hr IV STAT [facility] Last Admin: 12/14/20 16:48 Dose: 999 mls/hr Documented by: Ceftriaxone Sodium/Dextrose 1 (gm/ Premix) 50 mls @ 100 mls/hr IV ONETIME ONE Stop: 12/14/20 16:36 Last Admin: 12/14/20 16:48 Dose: 100 mls/hr Documented by: Lactated Ringer's (Ringers, Lactated) 1,000 mls @ 100 mls/hr IV ASDIRECTED [facility] Last Admin: 12/15/20 08:09 Dose: 100 mls/hr Documented by: Iopamidol (Iopamidol 755 Mg/Ml 500 Ml Multipack Bottle) 75 ml IVPUSH ONETIME STA Stop: 12/14/20 16:33 Last Admin: 12/14/20 17:30 Dose: 75 ml Documented by: Methylprednisolone Sodium Succinate (Methylprednisolone Sodium Succinate 125 Mg/2 Ml Sdv) 125 mg IVPUSH ONETIME ONE Stop: 12/14/20 14:33 Last Admin: 12/14/20 14:53 Dose: 125 mg Documented by: Sodium Chloride (Sodium Chloride 0.9% 10 Ml Syringe) 10 ml FLUSH ASDIRECTED PRN PRN Reason: Keep Vein Open Last Admin: 12/14/20 14:53 Dose: 10 ml Documented by: Sodium Chloride (Sodium Chloride 0.9% 2.5 Ml Syringe) 2.5 ml FLUSH ASDIRECTED PRN PRN Reason: Keep Vein Open Last Admin: 12/14/20 14:53 Dose: 2.5 ml Documented by:
== END 2020-12-15 14:15 | disposition home or self-care (01) ==
LOC: MW.ED 12:43 → MW.MS 18:35
PROVIDERS: ADMIT Student in an Organized Health Care Education/Training Program; ATTEND Student in an Organized Health Care Education/Training Program
DX: J44.1 Chronic obstructive pulmonary disease with (acute) exacerbation (principal); I10 Essential (primary) hypertension; D72.829 Elevated white blood cell count, unspecified; E86.0 Dehydration; E87.1 Hypo-osmolality and hyponatremia; Z20.822 Contact with and (suspected) exposure to COVID-19; Z99.81 Dependence on supplemental oxygen; Z79.899 Other long term (current) drug therapy; Z98.890 Other specified postprocedural states; Z87.891 Personal history of nicotine dependence
CPT/HCPCS: 0240U; 36415; 71046; 71275; 80048; 80053; 81003; 83036; 83605; 83735; 84100; 84484; 85025; 85379; 87040; 93005; 94640; 96365; 96375; 96376; 99285; A9270; C9113; G0378; J0696; J2920; J2930; J7030; J7040; J7120; Q9967; J7620-GY

== ENCOUNTER 2021-03-26 12:42 | Emergency (ER) | payer MEDICARE, MEDICAID ==
[2021-03-26] MEDS ORDERED: Sodium Chloride 0.9% 2.5 ML Syringe FLUSH PRN (13:22)
[2021-03-26] MEDS ORDERED: Sodium Chloride 0.9% 10 ML Syringe FLUSH PRN (13:22)
[2021-03-26] MEDS ORDERED: Sodium Chloride 0.9% 1,000 ML IV ONE (13:25)
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
[2021-03-26] MEDS ORDERED: methylPREDNISolone Sodium Succinate 125 MG/2 ML SDV IVPUSH ONE (13:48)
[2021-03-26] MEDS ORDERED: Magnesium Sulfate/Water 2 GM in Premix Bag 1 BAG IV ONE (13:49)
[2021-03-26] MEDS ORDERED: Albuterol/Ipratropium 3.0-0.5 MG/3 ML Neb Soln NEB ONE (13:54)
[2021-03-26 14:03] LABS: BLOOD UREA NITROGEN,BUN 16 mg/dL (7.0-18.0); CARBON DIOXIDE,CO2 26.8 mmol/L (21.0-32.0); CHLORIDE,CL 97 mmol/L (98-107); GLUCOSE RANDOM 150 mg/dL (74-106); POTASSIUM,K 4.7 mmol/L (3.5-5.1); SODIUM,NA 136 mmol/L (136-145)
--- NOTE | 2021-03-26 14:04 | CR ---
INDICATION: Dyspnea. TECHNIQUE: Portable AP chest radiograph. COMPARISON: 12/14/2020. FINDINGS: Bilateral hyperinflation. Similar mild linear/reticular opacities involving the right greater than left lower lungs. No new focal pulmonary opacity, pneumothorax, or sizable pleural effusion. Unchanged cardiac and mediastinal contours. IMPRESSION: Bilateral hyperinflation with similar mild to right greater than left basilar opacities, favor atelectasis and/or scarring. Dictated by José Miguel Small MD @ 03/26/2021 2:02:27 PM Dictated by: José Miguel Small MD @ 03/26/2021 14:02:31 (Electronically Signed)
[2021-03-26] MEDS ORDERED: Iopamidol 755 MG/ML 500 ML Multipack Bottle IVPUSH ONE (16:16)
--- NOTE | 2021-03-26 16:57 | CT ---
INDICATION: Hemoptysis. Hypoxia. TECHNIQUE: CT pulmonary angiogram protocol. Axial images. Sagittal and coronal reconstructions. 75 mL [id number] IV. COMPARISON: 12/14/2020. FINDINGS: Pulmonary arteries: Adequate contrast opacification with mildly compromised evaluation of the subsegmental arteries due to respiratory motion. No filling defects are seen to suggest an acute pulmonary embolus. Remainder of the chest: Heart size is normal. No pericardial effusion. Atherosclerotic changes are noted. Normal caliber thoracic aorta. Again seen are numerous subcentimeter lymph nodes in the mediastinum and hilar regions, which given their stability are likely either benign or reactive. Peribronchial/bronchial wall thickening is redemonstrated, consistent with chronic airways disease. Scattered endobronchial opacity suggests an acute component. There are peripherally predominant mid and lower lung ground-glass opacities with associated areas of parenchymal destruction. The appearance is most suggestive of a subacute infectious or inflammatory process such as COVID pneumonia. No dense airspace consolidation is seen on today`s study. Centrilobular emphysematous changes are redemonstrated. No pleural fluid or pneumothorax. Upper abdomen: No acute abnormality. Bones: Subacute appearing superior endplate compression fracture of L2. Degenerative changes. IMPRESSION: 1. No CT evidence of an acute pulmonary embolus within the limitations of the study. 2. Redemonstration of emphysematous changes and findings suggesting acute on chronic airways disease. 3. Pulmonary parenchymal changes are noted as described above, which are likely related to a subacute infectious or inflammatory process such as a COVID pneumonia. Clinically correlate. 4. Subacute appearing minor superior endplate compression fracture of L2. 5. Other findings as noted. Dictated by Ralph Schroeder MD @ 03/26/2021 4:55:01 PM Please note that all CT scans at this facility use dose modulation, iterative reconstruction, and/or weight-based dosing when appropriate to reduce radiation dose to as low as reasonably achievable. Dictated by: Ralph Schroeder MD @ 03/26/2021 16:55:27 (Electronically Signed)
[2021-03-26 17:11] VITALS: BP 148/85; PULSE 95
== END 2021-03-26 17:14 | disposition home or self-care (01) ==
LOC: MW.ED 12:42
DX: U07.1 COVID-19 (principal); J44.1 Chronic obstructive pulmonary disease with (acute) exacerbation; I10 Essential (primary) hypertension; M19.90 Unspecified osteoarthritis, unspecified site; Z79.899 Other long term (current) drug therapy
CPT/HCPCS: 36415; 36600; 71045; 71275; 80053; 82803; 83735; 84484; 85025; 93005; 96374; 96375; 99285; J2930; J3475; J7030; Q9967; J7620-GY

== ENCOUNTER 2023-12-15 13:19 | Inpatient (IN) | payer MEDICARE, MEDICAID ==
[2023-12-15] MEDS ORDERED: Sodium Chloride 0.9% 20 ML SDV IV PRN (13:23)
[2023-12-15 13:32] LABS: BASOPHILS ABSOLUTE AUTO 0.03 K/uL (0.00-0.20); BASOPHILS PERCENT AUTO 0.4 % (0.0-1.0); EOSINOPHILS ABSOLUTE AUTO 0.18 K/uL (0.00-0.45); EOSINOPHILS PERCENT AUTO 2.3 % (0.0-6.0); HEMOGLOBIN 14.4 g/dL (12.0-16.0); IMMATURE GRAN ABSOLUTE AUTO 0.02 K/uL (0.00-0.05); IMMATURE GRAN PERCENT AUTO 0.3 % (0.0-0.4); LYMPHOCYTES ABSOLUTE AUTO 1.94 K/uL (1.00-4.80); MEAN CORPUSCULAR HEMOGLOBIN 28.5 pg (28.0-32.0); MEAN CORPUSCULAR HGB CONC 33.5 g/dL (32.0-36.0); MEAN CORPUSCULAR VOLUME 85.1 fL (83.0-99.0); MEAN PLATELET VOLUME 8.5 fL (9.4-12.3); MONOCYTES ABSOLUTE AUTO 1.03 K/uL (0.00-0.80); MONOCYTES PERCENT AUTO 13.3 % (0.0-8.0); NEUTROPHILS ABSOLUTE AUTO 4.57 K/uL (1.80-7.70); NEUTROPHILS PERCENT AUTO 58.7 % (41.0-71.0); PLATELET COUNT,PLT 438 K/uL (150-400); RED BLOOD CELL COUNT 5.05 M/uL (4.10-5.30); WHITE BLOOD CELL COUNT,WBC 7.77 K/uL (3.9-11.3)
[2023-12-15] MEDS: Sodium Chloride 0.9% 2.5 ML Syringe FLUSH PRN (13:44)
[2023-12-15] MEDS: Sodium Chloride 0.9% 10 ML Syringe FLUSH PRN (13:44)
[2023-12-15 13:46] LABS: INR 0.99 (0.86-1.11); PTT,PARTIAL THROMBOPLSTIN TIME 25.6 SEC (23.9-30.7)
[2023-12-15 14:00] LABS: A/G RATIO 1.1 (0.9-1.6); ALBUMIN 3.8 g/dL (3.4-5.0); BILIRUBIN TOTAL 0.8 mg/dL (0.2-1.0); CALCIUM 8.9 mg/dL (8.5-10.1); CARBON DIOXIDE,CO2 25.9 mmol/L (21.0-32.0); CREATININE 0.9 mg/dL (0.6-1.0); EST CRCL DRUG DOSING (CG) 49.51 mL/min; MAGNESIUM 1.8 mg/dL (1.8-2.4); POTASSIUM,K 3.9 mmol/L (3.5-5.1); PROTEIN TOTAL,TP 7.4 g/dL (6.4-8.2)
[2023-12-15] MEDS: Morphine 2 MG/ML SYRINGE IVPUSH ONE (15:21)
[2023-12-15] MEDS: Ondansetron 4 MG/2 ML SDV IVPUSH ONE (15:21)
[2023-12-15 16:54] LABS: APPEARANCE,URINE CLEAR; BILIRUBIN,URINE NEGATIVE (NEGATIVE); COLOR,URINE YELLOW; GLUCOSE,URINE NEGATIVE (NEGATIVE); KETONES,URINE NEGATIVE (NEGATIVE); LEUKOCYTE ESTERASE,URINE TRACE (NEGATIVE); NITRITE,URINE NEGATIVE (NEGATIVE); OCCULT BLOOD,URINE NEGATIVE (NEGATIVE); PROTEIN,URINE NEGATIVE (NEGATIVE); UROBILINOGEN,URINE 0.2 EU/dL (<2.0)
[2023-12-15] MEDS: Bacitracin Oint 1 GM U/D Packet TOP ONE (16:58)
[2023-12-15 17:08] LABS: BACTERIA,URINE RARE (NEGATIVE); EPITHELIAL CELLS,URINE RARE (NONE-FEW); RBC,URINE 0-1 (0-2/HPF)
[2023-12-15] MEDS ORDERED: oxyCODONE 5 MG Tab PO PRN (20:32)
[2023-12-15] MEDS: Morphine 2 MG/ML SYRINGE IVPUSH PRN (21:55)
[2023-12-16 05:44] LABS: BASOPHILS ABSOLUTE AUTO 0.03 K/uL (0.00-0.20); BASOPHILS PERCENT AUTO 0.4 % (0.0-1.0); EOSINOPHILS ABSOLUTE AUTO 0.06 K/uL (0.00-0.45); EOSINOPHILS PERCENT AUTO 0.7 % (0.0-6.0); HEMATOCRIT 39.4 % (37.0-47.0); HEMOGLOBIN 13.2 g/dL (12.0-16.0); IMMATURE GRAN ABSOLUTE AUTO 0.04 K/uL (0.00-0.05); IMMATURE GRAN PERCENT AUTO 0.5 % (0.0-0.4); LYMPHOCYTES ABSOLUTE AUTO 1.22 K/uL (1.00-4.80); LYMPHOCYTES PERCENT AUTO 14.3 % (24.0-44.0); MEAN CORPUSCULAR HEMOGLOBIN 28.6 pg (28.0-32.0); MEAN CORPUSCULAR HGB CONC 33.5 g/dL (32.0-36.0); MEAN CORPUSCULAR VOLUME 85.5 fL (83.0-99.0); MEAN PLATELET VOLUME 8.6 fL (9.4-12.3); MONOCYTES ABSOLUTE AUTO 1.04 K/uL (0.00-0.80); MONOCYTES PERCENT AUTO 12.1 % (0.0-8.0); NEUTROPHILS ABSOLUTE AUTO 6.17 K/uL (1.80-7.70); PLATELET COUNT,PLT 406 K/uL (150-400); RED BLOOD CELL COUNT 4.61 M/uL (4.10-5.30); WHITE BLOOD CELL COUNT,WBC 8.56 K/uL (3.9-11.3)
[2023-12-16 07:12] LABS: CALCIUM 9.1 mg/dL (8.5-10.1); CARBON DIOXIDE,CO2 28.7 mmol/L (21.0-32.0); CREATININE 0.8 mg/dL (0.6-1.0); EST CRCL DRUG DOSING (CG) 60.38 mL/min; POTASSIUM,K 5.2 mmol/L (3.5-5.1)
[2023-12-16] MEDS ORDERED: Albuterol 8 GM Inhaler INH PRN (12:01)
[2023-12-16] MEDS ORDERED: Albuterol/Ipratropium 3.0-0.5 MG/3 ML Neb Soln NEB PRN (12:07)
[2023-12-16] MEDS ORDERED: Acetaminophen 325 MG Tab PO PRN (12:07)
[2023-12-16] MEDS ORDERED: Polyethylene Glycol 3350 Powder 17 GM Packet PO PRN (12:07)
[2023-12-16 12:11] LABS: HEMOGLOBIN A1C 5.9 %
[2023-12-16 12:28] LABS: TSH ULTRASENSITIVE 1.04 uIU/mL (0.36-3.74)
[2023-12-16] MEDS: Albuterol/Ipratropium 3.0-0.5 MG/3 ML Neb Soln NEB SCH (12:53)
[2023-12-16] MEDS: Sodium Chloride 0.9% 500 ML IV SCH (12:58)
[2023-12-16] MEDS: UMECLIDIN INH SCH (12:59)
[2023-12-16] MEDS: FLUTICASONE INH SCH (12:59)
[2023-12-16] MEDS: VILANTER INH SCH (12:59)
[2023-12-16] MEDS ORDERED: Melatonin 3 MG Tab PO PRN (21:00)
[2023-12-16] MEDS: oxyCODONE 5 MG Tab PO PRN (21:32)
[2023-12-16] MEDS: atorvaSTATin 20 MG Tab PO SCH (21:33)
[2023-12-17] MEDS ORDERED: Albuterol/Ipratropium 3.0-0.5 MG/3 ML Neb Soln NEB PRN (02:00)
[2023-12-17 06:29] LABS: BASOPHILS ABSOLUTE AUTO 0.04 K/uL (0.00-0.20); BASOPHILS PERCENT AUTO 0.6 % (0.0-1.0); EOSINOPHILS PERCENT AUTO 4.4 % (0.0-6.0); HEMATOCRIT 38.9 % (37.0-47.0); HEMOGLOBIN 12.8 g/dL (12.0-16.0); IMMATURE GRAN ABSOLUTE AUTO 0.02 K/uL (0.00-0.05); IMMATURE GRAN PERCENT AUTO 0.3 % (0.0-0.4); LYMPHOCYTES PERCENT AUTO 20.7 % (24.0-44.0); MEAN CORPUSCULAR HEMOGLOBIN 28.7 pg (28.0-32.0); MEAN CORPUSCULAR HGB CONC 32.9 g/dL (32.0-36.0); MEAN CORPUSCULAR VOLUME 87.2 fL (83.0-99.0); MEAN PLATELET VOLUME 8.5 fL (9.4-12.3); MONOCYTES ABSOLUTE AUTO 1.25 K/uL (0.00-0.80); MONOCYTES PERCENT AUTO 18.5 % (0.0-8.0); NEUTROPHILS ABSOLUTE AUTO 3.75 K/uL (1.80-7.70); NEUTROPHILS PERCENT AUTO 55.5 % (41.0-71.0); PLATELET COUNT,PLT 384 K/uL (150-400); RED BLOOD CELL COUNT 4.46 M/uL (4.10-5.30); WHITE BLOOD CELL COUNT,WBC 6.76 K/uL (3.9-11.3)
[2023-12-17 07:57] LABS: ALBUMIN 3.4 g/dL (3.4-5.0); BILIRUBIN TOTAL 0.7 mg/dL (0.2-1.0); CARBON DIOXIDE,CO2 28.8 mmol/L (21.0-32.0); CREATININE 0.9 mg/dL (0.6-1.0); EST CRCL DRUG DOSING (CG) 53.67 mL/min; MAGNESIUM 1.9 mg/dL (1.8-2.4); PHOSPHORUS 4.1 mg/dL (2.6-4.7); POTASSIUM,K 5.2 mmol/L (3.5-5.1); PROTEIN TOTAL,TP 6.8 g/dL (6.4-8.2)
[2023-12-17] MEDS ORDERED: Sodium Chloride 0.9% 10 ML Syringe FLUSH PRN (09:25)
[2023-12-17] MEDS ORDERED: Sodium Chloride 0.9% 2.5 ML Syringe FLUSH PRN (09:25)
[2023-12-17] MEDS: predniSONE 5 MG Tab PO SCH (10:16)
[2023-12-17] MEDS: Aspirin 81 MG Tab.EC PO SCH (11:45)
[2023-12-17] MEDS: Heparin Sodium 5,000 Units/ML Vial SUBCUT SCH (11:45)
[2023-12-17] MEDS: Gadobenate Dimeglumine 529 MG/ML 20 ML SDV IVPUSH ONE (17:42)
[2023-12-18 05:45] LABS: BASOPHILS ABSOLUTE AUTO 0.04 K/uL (0.00-0.20); BASOPHILS PERCENT AUTO 0.6 % (0.0-1.0); EOSINOPHILS ABSOLUTE AUTO 0.34 K/uL (0.00-0.45); EOSINOPHILS PERCENT AUTO 5.1 % (0.0-6.0); HEMATOCRIT 40.8 % (37.0-47.0); HEMOGLOBIN 13.4 g/dL (12.0-16.0); IMMATURE GRAN ABSOLUTE AUTO 0.02 K/uL (0.00-0.05); IMMATURE GRAN PERCENT AUTO 0.3 % (0.0-0.4); LYMPHOCYTES ABSOLUTE AUTO 1.52 K/uL (1.00-4.80); LYMPHOCYTES PERCENT AUTO 22.6 % (24.0-44.0); MEAN CORPUSCULAR HEMOGLOBIN 28.5 pg (28.0-32.0); MEAN CORPUSCULAR HGB CONC 32.8 g/dL (32.0-36.0); MEAN CORPUSCULAR VOLUME 86.6 fL (83.0-99.0); MEAN PLATELET VOLUME 8.6 fL (9.4-12.3); MONOCYTES ABSOLUTE AUTO 1.06 K/uL (0.00-0.80); MONOCYTES PERCENT AUTO 15.8 % (0.0-8.0); NEUTROPHILS ABSOLUTE AUTO 3.75 K/uL (1.80-7.70); NEUTROPHILS PERCENT AUTO 55.6 % (41.0-71.0); PLATELET COUNT,PLT 429 K/uL (150-400); RED BLOOD CELL COUNT 4.71 M/uL (4.10-5.30); WHITE BLOOD CELL COUNT,WBC 6.73 K/uL (3.9-11.3)
[2023-12-18 06:38] LABS: CALCIUM 9.2 mg/dL (8.5-10.1); CARBON DIOXIDE,CO2 28.9 mmol/L (21.0-32.0); CREATININE 0.8 mg/dL (0.6-1.0); EST CRCL DRUG DOSING (CG) 60.38 mL/min; MAGNESIUM 1.9 mg/dL (1.8-2.4)
[2023-12-18] MEDS ORDERED: amLODIPine 5 MG Tab PO SCH (09:00)
[2023-12-18 09:56] VITALS: BP 158/96; PULSE 95
[2023-12-18] MEDS: Hydrochlorothiazide 12.5 MG Cap PO SCH (09:57)
[2023-12-18] MEDS ORDERED: oxyCODONE 5 MG Tab PO PRN (11:00)
== END 2023-12-18 11:00 | disposition home or self-care (01) | DRG 312 ==
LOC: MW.ED 13:19 → MW.MS 16:53 → UNDOADMOB 17:09 → OBSVTOIN 12-16 14:31
PROVIDERS: ADMIT Internal Medicine; ATTEND Internal Medicine
DX: R55 Syncope and collapse (principal); S09.90XA Unspecified injury of head, initial encounter; S12.301A Unspecified nondisplaced fracture of fourth cervical vertebra, initial encounter for closed fracture; I72.9 Aneurysm of unspecified site; E87.1 Hypo-osmolality and hyponatremia; I10 Essential (primary) hypertension; I67.1 Cerebral aneurysm, nonruptured; W18.30XA Fall on same level, unspecified, initial encounter; S00.81XA Abrasion of other part of head, initial encounter; J44.9 Chronic obstructive pulmonary disease, unspecified; M19.90 Unspecified osteoarthritis, unspecified site; F32.A Depression, unspecified; F41.9 Anxiety disorder, unspecified; D64.9 Anemia, unspecified; H91.90 Unspecified hearing loss, unspecified ear; Z97.3 Presence of spectacles and contact lenses; Z98.51 Tubal ligation status; Z98.49 Cataract extraction status, unspecified eye; Z79.899 Other long term (current) drug therapy; W19.XXXA Unspecified fall, initial encounter
CPT/HCPCS: 36415 ×2; 70450; 70486; 70496; 70498; 70553; 71045; 72125; 72128; 73030; 80048; 80053; 80061; 81001; 83036; 83735; 84443; 84484 ×2; 85025 ×2; 85610; 85730; 93005; 96374; 96375; 99285; J2270 ×2; J2405; J3490; J7040; 84100; 93010; 93306; 96361; 96376; 97161-GP; 99284; A9270-GY; G0378; J1644; J7512; J7620-GY

== ENCOUNTER 2024-02-25 14:06 | Inpatient (IN) | payer MEDICARE, MEDICAID ==
[2024-02-25] MEDS ORDERED: Sodium Chloride 0.9% 20 ML SDV IV PRN (14:40)
[2024-02-25 14:52] LABS: HEMOGLOBIN 14.3 g/dL (12.0-16.0); MEAN CORPUSCULAR HEMOGLOBIN 28.4 pg (28.0-32.0); MEAN CORPUSCULAR VOLUME 83.3 fL (83.0-99.0); MEAN PLATELET VOLUME 8.7 fL (9.4-12.3); PLATELET COUNT,PLT 409 K/uL (150-400); RED BLOOD CELL COUNT 5.04 M/uL (4.10-5.30); WHITE BLOOD CELL COUNT,WBC 8.31 K/uL (3.9-11.3)
[2024-02-25 14:58] LABS: INR 0.99 (0.86-1.11)
[2024-02-25 15:11] LABS: A/G RATIO 1.1 (0.9-1.6); ALANINE AMINOTRANSFERASE,ALT 67 IU/L (14-63); ALBUMIN 4.1 g/dL (3.4-5.0); ALKALINE PHOSPHATASE 114 U/L (46-116); ASPARTATE AMNIOTRANSFERASE,AST 58 IU/L (15-37); BILIRUBIN TOTAL 0.7 mg/dL (0.2-1.0); BLOOD UREA NITROGEN,BUN 18 mg/dL (7.0-18.0); CALCIUM 9.5 mg/dL (8.5-10.1); CARBON DIOXIDE,CO2 24.7 mmol/L (21.0-32.0); CHLORIDE,CL 92 mmol/L (98-107); CREATININE 1.4 mg/dL (0.6-1.0); GLUCOSE RANDOM 151 mg/dL (74-106); POTASSIUM,K 3.9 mmol/L (3.5-5.1); PROTEIN TOTAL,TP 7.9 g/dL (6.4-8.2); SODIUM,NA 128 mmol/L (136-145)
[2024-02-25 15:22] LABS: CORONAVIRUS COVID-19 NAA POSITIVE (NEGATIVE); INFLUENZA A NAA NEGATIVE (NEGATIVE); INFLUENZA B NAA NEGATIVE (NEGATIVE)
[2024-02-25] MEDS: Sodium Chloride 0.9% 1,000 ML IV ONE (15:23)
[2024-02-25 15:31] LABS: ESTIMATED GFR 40 mL/min (>60); ETHANOL BLOOD MEDICAL < 3.0 mg/dL
[2024-02-25 15:42] LABS: BAND ABSOLUTE MAN 0.33; BAND PERCENT MAN 4 %; LYMPHOCYTES ABSOLUTE MAN 1.83 K/uL (1.00-4.80); LYMPHOCYTES PERCENT MAN 22 % (24-44); MONOCYTES ABSOLUTE MAN 1.83 K/uL (0.00-0.80); MONOCYTES PERCENT MAN 22 % (0-8); SEG NEUTROPHILS ABSOLUTE MAN 4.24 K/uL (1.80-7.70); SEG NEUTROPHILS PERCENT MAN 51 % (41-71)
[2024-02-25 15:43] LABS: EOSINOPHILS ABSOLUTE MAN 0.08 K/uL (0.00-0.45); EOSINOPHILS PERCENT MAN 1 % (0-6)
[2024-02-25] MEDS: Acetaminophen 325 MG Tab PO ONE (15:48)
[2024-02-25] MEDS: Sodium Chloride 0.9% 10 ML Syringe FLUSH PRN (15:59)
[2024-02-25] MEDS: Sodium Chloride 0.9% 2.5 ML Syringe FLUSH PRN (15:59)
[2024-02-25] MEDS: Ibuprofen 400 MG Tab PO ONE (15:59)
[2024-02-25 16:05] LABS: LACTIC ACID 1.6 mmol/L (0.4-2.0)
[2024-02-25] MEDS: Iopamidol 755 MG/ML 500 ML Multipack Bottle IVPUSH STA (17:10)
[2024-02-26 00:04] LABS: APPEARANCE,URINE CLEAR; BILIRUBIN,URINE NEGATIVE (NEGATIVE); COLOR,URINE YELLOW; GLUCOSE,URINE NEGATIVE (NEGATIVE); KETONES,URINE NEGATIVE (NEGATIVE); LEUKOCYTE ESTERASE,URINE NEGATIVE (NEGATIVE); NITRITE,URINE NEGATIVE (NEGATIVE); OCCULT BLOOD,URINE NEGATIVE (NEGATIVE); PROTEIN,URINE NEGATIVE (NEGATIVE); UROBILINOGEN,URINE 0.2 EU/dL (<2.0)
[2024-02-26 00:12] LABS: BACTERIA,URINE FEW (NEGATIVE); MUCUS,URINE LIGHT (NONE-MOD); RBC,URINE 0-1 (0-2/HPF); SQUAMOUS EPITHELIAL CELLS,UR OCCASIONAL; WBC,URINE 0-2 (0-5/HPF)
[2024-02-26] MEDS ORDERED: Albuterol 8 GM Inhaler INH PRN (01:09)
[2024-02-26] MEDS: Heparin Sodium 5,000 Units/ML Vial SUBCUT SCH ×2 (02:00→05:45)
[2024-02-26 05:43] LABS: HEMATOCRIT 36.4 % (37.0-47.0); HEMOGLOBIN 12.3 g/dL (12.0-16.0); MEAN CORPUSCULAR HEMOGLOBIN 28.1 pg (28.0-32.0); MEAN CORPUSCULAR HGB CONC 33.8 g/dL (32.0-36.0); MEAN CORPUSCULAR VOLUME 83.3 fL (83.0-99.0); MEAN PLATELET VOLUME 8.6 fL (9.4-12.3); PLATELET COUNT,PLT 313 K/uL (150-400); RED BLOOD CELL COUNT 4.37 M/uL (4.10-5.30); WHITE BLOOD CELL COUNT,WBC 3.73 K/uL (3.9-11.3)
[2024-02-26 06:08] LABS: ALBUMIN 3.2 g/dL (3.4-5.0); BILIRUBIN TOTAL 0.5 mg/dL (0.2-1.0); CALCIUM 8.3 mg/dL (8.5-10.1); CARBON DIOXIDE,CO2 27.4 mmol/L (21.0-32.0); CREATININE 0.9 mg/dL (0.6-1.0); EST CRCL DRUG DOSING (CG) 53.67 mL/min; POTASSIUM,K 3.7 mmol/L (3.5-5.1); PROTEIN TOTAL,TP 6.5 g/dL (6.4-8.2)
[2024-02-26 06:12] LABS: SEG NEUTROPHILS ABSOLUTE MAN 2.01 K/uL (1.80-7.70); SEG NEUTROPHILS PERCENT MAN 54 % (41-71)
[2024-02-26 06:13] LABS: LYMPHOCYTES ABSOLUTE MAN 0.93 K/uL (1.00-4.80); LYMPHOCYTES PERCENT MAN 25 % (24-44); MONOCYTES ABSOLUTE MAN 0.78 K/uL (0.00-0.80); MONOCYTES PERCENT MAN 21 % (0-8)
[2024-02-26] MEDS: predniSONE 5 MG Tab PO SCH (08:54)
[2024-02-26] MEDS: Ibuprofen 400 MG Tab PO PRN (08:54)
[2024-02-26] MEDS: Sodium Chloride 0.9% 250 ML IV ONE (09:05)
[2024-02-27 05:46] LABS: BASOPHILS ABSOLUTE AUTO 0.02 K/uL (0.00-0.20); BASOPHILS PERCENT AUTO 0.5 % (0.0-1.0); EOSINOPHILS ABSOLUTE AUTO 0.04 K/uL (0.00-0.45); HEMATOCRIT 37.4 % (37.0-47.0); HEMOGLOBIN 12.3 g/dL (12.0-16.0); IMMATURE GRAN ABSOLUTE AUTO 0.02 K/uL (0.00-0.05); IMMATURE GRAN PERCENT AUTO 0.5 % (0.0-0.4); LYMPHOCYTES ABSOLUTE AUTO 1.31 K/uL (1.00-4.80); LYMPHOCYTES PERCENT AUTO 33.8 % (24.0-44.0); MEAN CORPUSCULAR HEMOGLOBIN 27.9 pg (28.0-32.0); MEAN CORPUSCULAR HGB CONC 32.9 g/dL (32.0-36.0); MEAN CORPUSCULAR VOLUME 84.8 fL (83.0-99.0); MEAN PLATELET VOLUME 8.8 fL (9.4-12.3); NEUTROPHILS ABSOLUTE AUTO 1.79 K/uL (1.80-7.70); NEUTROPHILS PERCENT AUTO 46.2 % (41.0-71.0); PLATELET COUNT,PLT 323 K/uL (150-400); RED BLOOD CELL COUNT 4.41 M/uL (4.10-5.30); WHITE BLOOD CELL COUNT,WBC 3.88 K/uL (3.9-11.3)
[2024-02-27 06:07] LABS: CALCIUM 8.5 mg/dL (8.5-10.1); CARBON DIOXIDE,CO2 29.1 mmol/L (21.0-32.0); CREATININE 0.8 mg/dL (0.6-1.0); EST CRCL DRUG DOSING (CG) 60.38 mL/min; POTASSIUM,K 3.5 mmol/L (3.5-5.1)
[2024-02-27 06:23] VITALS: PULSE 80
[2024-02-27 12:18] VITALS: BP 116/60
== END 2024-02-27 13:47 | disposition home or self-care (01) | DRG 178 ==
LOC: MW.ED 14:06 → MW.MS 16:38
PROVIDERS: ADMIT Internal Medicine; ATTEND Internal Medicine
DX: U07.1 COVID-19 (principal); E87.1 Hypo-osmolality and hyponatremia; J44.9 Chronic obstructive pulmonary disease, unspecified; R55 Syncope and collapse; J45.909 Unspecified asthma, uncomplicated; I10 Essential (primary) hypertension; H54.7 Unspecified visual loss; Z91.048 Other nonmedicinal substance allergy status; Z75.8 Other problems related to medical facilities and other health care; E86.0 Dehydration; H91.90 Unspecified hearing loss, unspecified ear; M19.90 Unspecified osteoarthritis, unspecified site; F41.9 Anxiety disorder, unspecified; F32.A Depression, unspecified; Z88.8 Allergy status to other drugs, medicaments and biological substances; Z98.49 Cataract extraction status, unspecified eye; Z98.51 Tubal ligation status; Z86.16 Personal history of COVID-19; Z86.73 Personal history of transient ischemic attack (TIA), and cerebral infarction without residual deficits; Z79.52 Long term (current) use of systemic steroids; Z79.899 Other long term (current) drug therapy
CPT/HCPCS: 0240U; 36415; 70450; 71045; 71275; 80048; 80053; 80307; 81001; 82947; 83605; 84484; 85025; 85610; 85730; 87040; 93005; 96360; 97162; 99285; 93010; 99221; 99231; 99238; A9270-GY; J1644; J3490; J7030; J7050; J7512; Q9967